=== PATIENT | male | born 1960 | race Caucasian/White ===

== ENCOUNTER 2017-11-27 16:01 | Inpatient (IN) | payer MEDICAID ==
[~2017-11-27] VITALS: Ht 182.9 cm; Wt 64.4 kg
[2017-11-27 07:00] VITALS: BP 112/73
[~2017-11-27 16:01] MED LIST: FLEXERIL PO; FLOMAX0.4 MG PO; IBUPROFEN 800800 M1 PO; MIRALAX17 G1 PO; MIRALAX17 GM PO; MS CONTIN15 MG PO; MS CONTIN30 MG PO; NAPROSYN500 MG PO; NEURONTIN 300300 M1 PO; NEURONTIN300 MG PO; NICOTINE TRANSD21 M1 TRANSDERM; NORCO 5-325 TA1 EACH PO; OMEPRAZOLE 20 M20 M1 PO; ONDANSETRON ODT4 MG PO; OXYCODONE HCL 55 MG PO; OXYCODONE HCL15 MG PO; OXYCONTIN10 M1 PO; PERCOCET 10-321 EACH PO; PERCOCET PO; PROTONIX40 M1 PO; REGLAN 10 MG TA10 MG PO; SENOKOT-S1 TA1 PO; TRAMADOL 50 MG50 MG PO; XANAX 0.25 MG0.25 MG PO; XANAX 0.5 MG0.5 MG PO; ZOFRAN ODT4 MG DISSOLVE; ZOLOFT100 MG PO
[2017-11-27 16:04] VITALS: BP 118/81
[2017-11-27 16:39] LABS: HEMATOCRIT 38.1 % (42.0-52.0); HEMOGLOBIN 13.1 gm/dL (14.0-18.0); MCH 31.5 pg (26.0-34.0); MCHC 34.2 g/dL (28.0-37.0); MCV 92.1 fL (80.0-100.0); NUCLEATED RBCS 0 /100WBC; PLATELET COUNT* 469 thou/uL (150-400); RBC 4.14 mil/uL (4.50-6.00); RDW-CV 17.1 % (10.5-14.5); WBC 8.8 thou/uL (4.0-11.0)
[2017-11-27 16:55] LABS: CALCIUM 9.5 mg/dL (8.5-10.1); CREATININE 1.5 mg/dL (0.6-1.3)
[2017-11-27 16:58] LABS: POTASSIUM 4.4 mmol/L (3.5-5.1)
[2017-11-27 17:05] LABS: ALBUMIN 3.9 g/dL (3.4-5.0); TOTAL BILIRUBIN 0.5 mg/dL (<0.1-1.0); TOTAL PROTEIN 7.6 g/dL (6.4-8.2); TROPONIN-I LEVEL 0.07 ng/mL (<0.06)
[2017-11-27 17:08] LABS: ABSOLUTE LYMPHOCYTES 0.5 thou/uL (0.8-5.3); ABSOLUTE MONOCYTES 0.5 thou/uL (0.0-1.2); ABSOLUTE NEUTROPHILS 7.7 thou/uL (1.6-8.1)
[2017-11-27 17:09] LABS: ANISOCYTOSIS Occasional; PLATELET ESTIMATE ADEQUATE
[2017-11-27 17:58] LABS: INFLUENZA A ANTIGEN None Detected (None Detect); INFLUENZA B ANTIGEN None Detected (None Detect)
[2017-11-27 18:36] VITALS: BP 102/73
--- NOTE | 2017-11-27 19:09 | NUR ---
Pt to floor frpom ER , appears o x 4, denies chest pain, or SOB, does C/O chronic abdominal pain. Given IV pain RX in ER, . Statews nausea relieved. GFiven IV zofran and IV phenergan. PIV L ac. Rec 1 l fluid NS ion ER, along with IV rocephine. orders foer NS @ 100 ml per hour, HAS PIV L ac, has chest port-a-cath that is not accessed. Hx of colon CA has colostomy. C/O generalized weakenss. States has HX of anxiety asking foer gena, states is home RX. NSR on monitor 82
[2017-11-28] VITALS (7 sets, daily range): BP systolic 74–107; BP diastolic 41–75
--- NOTE | 2017-11-28 03:06 | NUR ---
Pt co abdominal pain, rating 8-9/10. Getting some relief with morphine prn, but states he would like to have home regimen of Morphine po and oxycodone resumed as he reports it works well for controlling his pain. C/o intermittent nausea, no emesis. Had lemon-tanana soda and zofran to help alleviate nausea. Colostomy has been emptied 3X up to this point; filling with dr green liquid stool along with flatus. Reports that he had not voided in the past couple of days. He has voided once so far this shift. VSS. Will continue to monitor.
[2017-11-28 04:52] LABS: HEMATOCRIT 34.6 % (42.0-52.0); HEMOGLOBIN 12.1 gm/dL (14.0-18.0); MCHC 34.9 g/dL (28.0-37.0); MCV 91.9 fL (80.0-100.0); MPV 6.3 fl. (7.2-11.1); RBC 3.76 mil/uL (4.50-6.00); RDW-CV 17.3 % (10.5-14.5); WBC 6.4 thou/uL (4.0-11.0)
[2017-11-28 05:12] LABS: ALBUMIN 3.5 g/dL (3.4-5.0); CALCIUM 8.5 mg/dL (8.5-10.1); CREATININE 1.2 mg/dL (0.6-1.3); POTASSIUM 3.6 mmol/L (3.5-5.1); TOTAL BILIRUBIN 0.3 mg/dL (<0.1-1.0); TOTAL PROTEIN 6.3 g/dL (6.4-8.2)
--- NOTE | 2017-11-28 13:47 | EKG ---
[place] [address] ELECTROCARDIOGRAM REPORT Name: PARESHVIGNESH DENVER Room: [address] ADM IN .R.#: [id number] Admission: 11/27/17 Attend Phys: Joey Atkins, Discharge: Date of : 60 Report #: [id number] THIS REPORT FOR: //name// [facility] ED Test Date: 2017-11-27 Test Time: 16:20:21 Pat Name: VIGNESH YODER Department: Room: [facility] [place] Gender: M Designer: ROSA : 1960 Requested By: Brina Petersen Order Number: [id number] MD: Casimiro Gamboa Measurements Intervals [place] Rate: 97 P: 89 KS: 139 QRS: 97 QRSD: 103 T: 80 QT: 377 QTc: 479 Interpretive Statements Sinus rhythm Biatrial enlargement Borderline right axis deviation Nonspecific T abnrm, anterolateral leads Borderline prolonged QT interval Compared to ECG 11/10/2017 16:42:21 rate increased Electronically Signed On 11-28-2017 13:47:12 STITCH BONDING MACHINE DRAWER IN by Casimiro Gamboa [email or web address] <ELECTRONICALLY SIGNED> By: Casimiro Gamboa MD, FACC 11/28/17 1347 1620 1620 Casimiro Gamboa MD, [facility] /EPI
--- NOTE | 2017-11-28 19:09 | NUR ---
VSS, ASSUMED CARE IN THE AM, ASSESSMENT PERFORMED AND CHARTED, FALL PRECAUTIONS IN PLACE AND CALL LIGHT IN REACH, PT BPS ARE SOFT AND DR HAS BEEN CALLED, ORDERS ARE TO START FLUID BOLUS, PT STATES PAIN IN ABDOMINE, HIS GOAL IS TO IMPROVE BP'S AND LOWER PAIN, PT IS UP WITH ONE AND HAS COLOSTOMY IN RUQ, AT THIS TIME PT BPS ARE STILL SOFT AND OT IS STILL IN PAIN, PAIN MEDS AND FLUIDS ARE BEING INFUSED, HOURLY ROUNDS CONPLETED,
[2017-11-29] VITALS (7 sets, daily range): BP systolic 73–106; BP diastolic 37–68
[2017-11-29 01:03] LABS: URINE BILIRUBIN NEGATIVE (Negative); URINE BLOOD NEGATIVE (Negative); URINE CLARITY CLEAR; URINE COLOR YELLOW; URINE GLUCOSE-RANDOM NEGATIVE (Negative); URINE KETONES NEGATIVE (Negative); URINE LEUKOCYTES-REFLEX NEGATIVE (Negative); URINE NITRITE-REFLEX NEGATIVE (Negative); URINE PROTEIN NEGATIVE (Negative); URINE SPECIFIC GRAVITY 1.015 (1.005-1.030); URINE UROBILINOGEN 0.2 E.U./dl (0.2-1.0)
--- NOTE | 2017-11-29 03:31 | NUR ---
Pt continues to have lower BP; 80s/40s-50s. Asymptomatic; and states he is feeling "well-hydrated." Continues to have large amount of liquid stool from colosomy, emptied approx every 2-3 hours. Continues to have abdominal pain, rating 8-9/10. Also c/o soreness and dryness to hands, which he describes as similar to what he experienced with his previous hospital stay. Lotion given to help with dryness. Pt drank some milk, states he is making an effort to get some nourishment. Will continue to monitor.
[2017-11-29 04:42] LABS: HEMATOCRIT 28.3 % (42.0-52.0); MCH 31.9 pg (26.0-34.0); MCHC 34.2 g/dL (28.0-37.0); MCV 93.4 fL (80.0-100.0); MPV 6.9 fl. (7.2-11.1); RBC 3.03 mil/uL (4.50-6.00); RDW-CV 16.8 % (10.5-14.5); WBC 3.9 thou/uL (4.0-11.0)
[2017-11-29 04:43] LABS: ALBUMIN 2.8 g/dL (3.4-5.0); CALCIUM 7.3 mg/dL (8.5-10.1); CREATININE 0.9 mg/dL (0.6-1.3); HEMOGLOBIN 9.7 gm/dL (14.0-18.0); MAGNESIUM 1.8 mg/dL (1.8-2.4); POTASSIUM 3.5 mmol/L (3.5-5.1); TOTAL BILIRUBIN 0.2 mg/dL (<0.1-1.0); TOTAL PROTEIN 5.3 g/dL (6.4-8.2)
--- NOTE | 2017-11-29 08:00 | NUR ---
VSS, ASSUMED CARE THIS AM, ASSESSMENT PERFORMED AND CHARTED, FALL PRECAUTIONS IN PLACE AND CALL LIGHT IN REACH, PT IS A&O4 AND TRACING SR ON THE MONITOR, STATES HAVING ABDOMINAL PAIN, HAS ILEOSTOMY IN RUQ AND IS INPLACE AND IS DRAING GREEN LIQUID, AT THIS TIME PT IS ON RA UP WITH ONE, HIS GOAL IS TO IMPROVE PAIN CONTROL AND IMPROVE APPETITE.
--- NOTE | 2017-11-29 17:55 | NUR ---
VSS, PT IS PROGRESSING TOWARDS GOAL, PT IS A&O4 AND UP WITH STAND BY, GOT CLEANED UP AND WAS UP IN CHAIR, PT STILL STATES PAIN, HE IS TRACING SR ON THE MONITOR AND, NO OTHER STATUS CHANGE AT THIS TIME,
[2017-11-30] VITALS: BP 99/46
--- NOTE | 2017-11-30 01:15 | NUR ---
BEGAN CARE OF PT AT 1930, PT A/OX4, SR ON THE MONITOR, RA, REPORTS PAIN TO THE ABD, PT STATED, "I HAVE A COUPLE TYPES OF PAIN MEDS, THE HYDRO I GET EVERY 4 NOW", PT PAIN TREATED, VOIDING USING URINAL, ILIOSTOY TO THE RQ, PT ADDS WATER TO BAG AND DRAINS HIMSELF, UP HAS NOT BEEN OUT OF BED THUS FAR, MEDS/ASSESSMENT PER CHARTING, VSS WITH BP SOFT, PT STATED HE'S NORMALLY 80'S/50'S AND WE NEED TO USE HIS LEFT ARM, HOURLY ROUNDING IN PLACE, FALL PRECAUTIONS IN PLACE, BED IN LOW LOCKED POSITION WITH ALARM SET, AND CALL LIGHT IN REACH. WILL CONT TO MONITOR.
[2017-11-30 04:00] VITALS: BP 99/49
[2017-11-30 05:02] LABS: HEMATOCRIT 26.5 % (42.0-52.0); HEMOGLOBIN 8.9 gm/dL (14.0-18.0); MCH 31.2 pg (26.0-34.0); MCHC 33.5 g/dL (28.0-37.0); MCV 93.3 fL (80.0-100.0); MPV 6.7 fl. (7.2-11.1); RBC 2.84 mil/uL (4.50-6.00); RDW-CV 16.7 % (10.5-14.5); WBC 3.8 thou/uL (4.0-11.0)
[2017-11-30 05:14] LABS: ALBUMIN 2.6 g/dL (3.4-5.0); CALCIUM 7.3 mg/dL (8.5-10.1); CREATININE 0.8 mg/dL (0.6-1.3); MAGNESIUM 1.7 mg/dL (1.8-2.4); POTASSIUM 3.4 mmol/L (3.5-5.1); TOTAL BILIRUBIN 0.1 mg/dL (<0.1-1.0); TOTAL PROTEIN 5.1 g/dL (6.4-8.2)
[2017-11-30 07:30] VITALS: BP 136/72
--- NOTE | 2017-11-30 10:01 | NUR ---
RECEIVED PT CARE 0700. PT ALERT AND ORIENTED X4. VSS. WIRE TESTER TRACING SR. PT DENIES ANY SOA. O2 SAT 100% ON ROOM AIR. C/O ABDOMINAL PAIN. PRN AND SCHEDULED PAIN MEDICATIONS GIVEN. PT UP IN ROOM WITH BATHROOM PRIVILEDGES. GAIT IS STEADY. AM ASSESSMENT CHARTED. MEDS PER JAN. PATIENT GOT CLEANED UP AND HIS BED LINENS WERE CHANGED PER NURSING STAFF. CALL LIGHT WITHIN REACH. WILL CONTINUE TO MONITOR.
[2017-11-30 11:30] LABS: MAGNESIUM 1.6 mg/dL (1.8-2.4); POTASSIUM 3.5 mmol/L (3.5-5.1)
[2017-11-30 11:47] VITALS: BP 114/61
--- NOTE | 2017-11-30 14:30 | NUR ---
CM ASSESSMENT: Pt known to this CM from previous hospital stay. Pt is A&O. Resides at home with his sister. Independent with ADLs. Recently discharged from the hospital on 11/24. Readmitted with fever and elevated troponin. Pt has rectal CA, has been receiving chemo tx. No hx of SNF. Goal is to return home once medically stable for dc.
[2017-11-30 16:23] VITALS: BP 115/69
--- NOTE | 2017-11-30 18:57 | NUR ---
PT PROGRESSING TOWARDS GOALS. PAIN CONTROLLED WITH ORAL PAIN MEDICATIONS. UP IN ROOM WITH BATHROOM PRIVILEDGES. REFUSES TO HAVE BED ALARM ON. REFUSED TO SIGN IS FALL AGREEMENT. EDUCATION GIVEN AND PATIENT VERBALIZED UNDERSTANDING. IVF INFUSING. PATIENT ABLE TO TOLERATE HIS DIET WITHOUT VOMITING. PRN ZOFRAN GIVEN WITH GOOD RELIEF. CALL LIGHT WITHIN REACH. HOURLY ROUNDING CHARTED. WILL CONTINUE TO MONITOR.
[2017-11-30 20:34] VITALS: BP 114/64
--- NOTE | 2017-11-30 21:02 | NUR ---
BEGAN CARE OF PT AT 1930. NO ACUTE CHANGES DURING THE DAY PER DAY-RN, [place] AT THIS TIME, PAIN TREATED WITH SCHEDULED PAIN MEDICATION, MEDS/ASSESSMENT PER CHARTING, PT REFUSING FALL PRECAUTIONS SUCH BED ALARM, STATED HE WILL CALL IF HE NEEDS SOMETHING, EDUCATED PT ON FALL INFO, PT STATED HE IS NOT DIZZY AND IS FINE, IV FLUIDS RUNNING PER R-CHEST PORT, URINAL AT BED SIDE, PT STATED HE WILL EMPTY HIS OWN ILIOSTOMY BAG, EDUCATED PT ON EMPTYING IT INTO A MEASURING DEVICE PRIOR TO ADDING WATER TO CLEAN THE BAG HE DOES SO WE ARE ABLE TO GET AN ACCURATE OUTPUT, BED IN LOW LOCKED POSITION AND CALL LIGHT IN REACH. WILL CONT TO MONITOR.
[2017-12-01] VITALS: BP 96/49
--- NOTE | 2017-12-01 03:28 | NUR ---
NO ACUTE CHANGES WITH PT OVER NIGHT, HOURLY ROUNDING IN PLACE, PT CONT TO REFUSE FALL PRECAUTIONS SUCH BED ALARM, PAIN MEDS REQUESTED Q4H, PAIN TREATED PER EMAR, WILL CONT TO MONITOR.
[2017-12-01 04:07] VITALS: BP 108/67
[2017-12-01 05:18] LABS: MAGNESIUM 1.4 mg/dL (1.8-2.4); POTASSIUM 3.5 mmol/L (3.5-5.1)
[2017-12-01 09:22] VITALS: BP 114/82
[2017-12-01 13:13] VITALS: BP 133/49
--- NOTE | 2017-12-01 14:15 | NUR ---
ASSUMED CARES OF PT AT 0700. PT IN BED, BED IN LOW AND LOCKED POSITION, FALL PRECAUTIONS IN PLACE. CALL BUTTON AND PERSONAL ITEMS IN PT REACH. PT A&O X4, ANXIOUS, CHRONIC PAIN R/T CANCER TREATMENT. LABORER LABORATORY TRACING SB, VSS ON RA, AFEBRILE, PERRLA, SKIN BREAKDOWN FROM CANCER RADIATION TREATMENT, DR. MARSHALL REQUESTED WOUND CONSULT. MAIN CONCERN IN PAIN CONTROL WITH SCHEDULED AND PRN MEDS. LCTAB. ILIOSTOMY CHANGED, PT HAD SEVERE PANIC ATTACK ABOUT ILIOSTOMY BECOMING LOOSE, REDRESSED WITH NEW EQUIPMENT. PT REFUSES SCD'S. RIGHT PORTACATH PATENT WITH GOOD BLOOD RETURN. PT TOLERATEDS INFUSED FLUIDS/ABT. ERP IN PLACE, REPLACING MG+ AT THIS TIME. OCC. NAUSEA NO VOMITING. PT UP INDEPENDENTLY TO BATHROOM. PULSES RADIAL AND PEDAL WNL. PT PROGRESSING TOWARDS GOAL. WILL CONTINUE TO MONITOR.
[2017-12-01 16:39] VITALS: BP 131/80
--- NOTE | 2017-12-01 20:17 | NUR ---
REPORT TO FRENCH POLISHER FOR CONTINUED CARES. PT REMAINS STABLE. IV ABT TOLERATED IN RIGHT CHEST PORT. PT REFUSES SCD'S THIS SHIFT. APPETITE SEEMS TO BE IMPROVING, MEAL SUPPLEMENTS TAKEN TO INCREASE PROTEIN INTAKE. ILIOSTOMY CHANGED THIS SHIFT. HOURLY ROUNDING COMPLETED. PT PRESENTLY RESTING IN BED WATCHING TV. STATES HE IS READY FOR PAIN MEDS SOON HE CAN HAVE THEM. ALL PT DOCUMENTATION AND EDUCATION COMPLETED. PT PROGRESSING TOWARDS GOAL.
[2017-12-01 20:30] VITALS: BP 128/60
[2017-12-02 00:02] VITALS: BP 142/80
[2017-12-02 04:05] VITALS: BP 163/82
--- NOTE | 2017-12-02 04:26 | NUR ---
PT REMAINED STABLE OVER NIGHT WITH NO ACUTE CHANGES, MAG REPLACED X2 WITH RE-DRAW TO BE COMPLETED THIS AM, PT REC PAIN MEDS PRN Q4H NEEDED, N/WITHOUT V REPORTED AND TREATED, ILEOSTOMY OP NOTED AT 700 WITH LOOSE GREEN LIQUID NOTED TO THE 350 MARKING AND A MORE CLEAR LIQUID NOTED FROM THE 350-700CC, PT CONT TO REFUSE FALL PRECAUTIONS SUCH BED ALARM, USING CALL LIGHT AND ABLE TO REPORT NEEDS, ANXIETY MEDS REQUESTED Q4H, PT STATED HE WAS TOLD HE NEEDS TO STAY A FEW MORE DAYS, HOURLY ROUNDING IN PLACE, BED REMAINS IN LOW LOCKED POSITION WITH CALL LIGHT IN REACH AT ALL TIMES, VSS, WILL CONT TO MONITOR.
[2017-12-02 05:57] LABS: MAGNESIUM 1.5 mg/dL (1.8-2.4); POTASSIUM 3.6 mmol/L (3.5-5.1)
--- NOTE | 2017-12-02 07:15 | NUR ---
ASSUMED CARE OF PT ASSESSED AND DOUMENTED. PT ON CARDIAC MONITER TRACING SR HR 84. PT IS A&O AND STATES HE HAS PAIN THAT IS CONSTANT. PAIN MEDICATION GIVEN PRIOR TO START OF SHIFT. PT IS ON ROOM AIR. HE HAS AN ILLIOSTOMY AND STATES HE WILL TAKE CARE OF THAT. VSS WNL. PT IS AFEBRILE. WM.
[2017-12-02 08:00] VITALS: BP 139/78
--- NOTE | 2017-12-02 12:02 | NUR ---
WOUND CARE NOTE: CONSULT RECEIVED FOR RADIATION SKIN DAMAGE/BREAKDOWN. PATIENT KNOWN TO ME FROM PREVIOUS HOSPITAL STAY WITH SIGNIFICANT FUNGAL RASH TO BL GROIN AND SACRAL/BUTTOCKS/PERINEAL AREA. AREA HAS HEALED VERY WELL. NO OPENINGS NOTED. OSTOMY IS PINK AND PROTRUDING, PATIENT STATES IT IS NORMAL FOR HIM. EDUCATED PATIENT ON CONTINUING TO TURN TO ASSIST WITH PREVENTION, COMMUNICATED UNDERSTANDING. PATIENT SHOWED ME HIS HANDS, STILL PEELING. ENCOURAGED TO WASH HANDS WITH SOAP AND WATER, PAT DRY. WHILE HANDS STILL DAMP, PLACE LOTION THEN PLACE COTTON SOCKS/GLOVES TO ASSIST WITH MOISTURIZATION, COMMUNICATED UNDERSTANDING. RECOMMEND CONTINUE TO TURN Q2 HOURS WILL SIGN OFF AT THIS TIME, PLEASE RECONSULT IF NEEDED
[2017-12-02 16:00] VITALS: BP 132/76
--- NOTE | 2017-12-02 17:53 | NUR ---
PT HAS RESTED IN HIS ROOM AND WATCHED TV. PAIN HAS BEEN ADDRESSED Q4 HOURS. PT HAS HAD NO S OR SX OF ADVERSE REATION TO ABT, PT HAS HAD EMESIS AND NAUSEA TREATED WITH ZOFRAN. EDUCATION GIVEN ON DEMAND. HOURLY ROUNDING COMPLETE. IV MG+ GIVEN AND REDRAW PUT IN.
[2017-12-02 20:00] VITALS: BP 124/64
[2017-12-03] VITALS: BP 117/53
[2017-12-03 04:00] VITALS: BP 129/67
--- NOTE | 2017-12-03 04:03 | NUR ---
ASSUMED CARE OF PT AT 1930, NURSING ASSESSMENT COMPLETED AT START OF SHIFT, PT CONTINUES ON TELE MONITOR TRACING SINUS RHYTHM. HOURLY ROUNDING COMPLETED. PT CONTINUES TO HAVE LIQUID OUPUT FROM OSTOMY THIS SHIFT, PRN PAIN MEDICATION GIVEN X3 THIS SHIFT, PT AFEBRILE THIS SHIFT, CALL LIGHT WITHIN REACH.
[2017-12-03 05:14] LABS: HEMATOCRIT 24.4 % (42.0-52.0); HEMOGLOBIN 8.5 gm/dL (14.0-18.0); MCH 32.3 pg (26.0-34.0); MCHC 34.9 g/dL (28.0-37.0); MCV 92.5 fL (80.0-100.0); MPV 6.5 fl. (7.2-11.1); RBC 2.64 mil/uL (4.50-6.00); RDW-CV 16.7 % (10.5-14.5); WBC 4.1 thou/uL (4.0-11.0)
[2017-12-03 05:28] LABS: CALCIUM 7.5 mg/dL (8.5-10.1); CREATININE 0.7 mg/dL (0.6-1.3); MAGNESIUM 1.9 mg/dL (1.8-2.4); POTASSIUM 3.4 mmol/L (3.5-5.1)
--- NOTE | 2017-12-03 08:00 | NUR ---
AM ASSESSMENT COMPLETE, DEFER TO COMPTUER CHARTING. CYANIDE CASE HARDENER TRACKING SB. UP AD SUZAN, GAIT STEADY. REPORTING HAVING ABD DISCOMFORT, DENIES NAUSEA. SITTING ON SIDE OF BED FOR AM MEAL, WILL MONITOR.
[2017-12-03 11:47] VITALS: BP 124/73
[2017-12-03 15:27] VITALS: BP 122/75
--- NOTE | 2017-12-03 17:13 | NUR ---
AUTOCAD OPERATOR TRACKING WITH NO CHANGE IN RHYTHM. PATIENT GIVEN IMMODIUM FOR LIQUID STOOL, ZOFRAN X 1 FOR COMPLAINTS OF NAUSEA. GIVEN ANXIETY AND PRN PAIN MEDICATION Q 4 HOURS PER PATIENT REQUEST - REPORTING HAVING ABD DISCOMFORT. MIN DIETARY INTAKE, TOLERATING LIQUIDS. CALL LIGHT WITHIN REACH, WILL CONTINUE WITH PLAN OF CARE.
[2017-12-03 20:00] VITALS: BP 117/58
[2017-12-04] VITALS: BP 112/59
[2017-12-04 05:34] LABS: CALCIUM 8.4 mg/dL (8.5-10.1); CREATININE 0.6 mg/dL (0.6-1.3); MAGNESIUM 1.9 mg/dL (1.8-2.4); POTASSIUM 4.3 mmol/L (3.5-5.1)
--- NOTE | 2017-12-04 05:39 | NUR ---
ASSUMED CARE OF PT AT 1930, NURSING ASSESSMENT COMPLETED AT START OF SHIFT, PT CONTINUES TO C/O PAIN, PRN PAIN MEDICATION GIVEN Q4H, PT CONTINUES TO HAVE OVER 1000 ML OUT FROM ILLEOSTOMY. IMMODIUM GIVEN X1 THIS SHIFT. PT BROKE OUT IN SWEATS X2 THIS SHIFT, VSS THIS SHIFT, HOURLY ROUNDING COMPLETED, PT MED SURG STATUS.
--- NOTE | 2017-12-04 07:15 | NUR ---
ASSUMED CARE OF PT ASSESSED AND DOCUMENTED. PT IS A&O AND STATES PAIN IS CONSTANT AROUND HIS STOMA AND ABD. VSS WNL. PT IS AFEBRILE. PT IS ON ROOM AIR.WM.
[2017-12-04 08:00] VITALS: BP 126/64
[2017-12-04 15:58] VITALS: BP 128/76
--- NOTE | 2017-12-04 16:39 | NUR ---
PT IS IN HIS ROOM WATCHING THE [employer] GAME. HIS BROTHER IS AT BEDSIDE. TOOK PT TO THE GIFT SHOP TODAY FOR SNACKS AND DRINKS. PT HAS CONT TO HAVE PAIN IN HIS ABD AND STOMA. PRN MEDICATIONS HAVE BEEN GIVEN Q4 HRS. INCREASED HIS OXY TO 25 MG. PT STATES THIS WAS HELPFUL. PT HAS HAD NO C/O N&V THIS SHIFT. EDUCATION GIVEN ON DEMAND. HOURLY ROUNDING COMPLETE.
[2017-12-04 20:00] VITALS: BP 132/80
[2017-12-05] VITALS: BP 93/60
[2017-12-05 05:01] LABS: HEMATOCRIT 28.1 % (42.0-52.0); HEMOGLOBIN 9.8 gm/dL (14.0-18.0); MCH 32.1 pg (26.0-34.0); MCHC 34.7 g/dL (28.0-37.0); MCV 92.5 fL (80.0-100.0); MPV 6.6 fl. (7.2-11.1); RBC 3.04 mil/uL (4.50-6.00); RDW-CV 17.1 % (10.5-14.5); WBC 4.8 thou/uL (4.0-11.0)
--- NOTE | 2017-12-05 05:06 | NUR ---
ASSUMED CARE OF PT AT 1930, NURSING ASSESSMENT COMPLETED AT START OF SHIFT, PT PT C/O PAIN AND NAUSEA. SCHEDULED PAIN MEDICATION AND PRN PAIN MEDICATION ADMINISTERED THIS SHIFT. SEE EMAR FOR DOCUMENTATION. PT CONTINUES TO HAVE LIQUID STOOL FROM ILLEOSTOMY. SCHEDULED LOPERAMIDE ADMINISTERED. HOURLY ROUNDING COMPLETED, CALL LIGHT WITHIN REACH.
[2017-12-05 05:07] LABS: CALCIUM 8.7 mg/dL (8.5-10.1); CREATININE 0.6 mg/dL (0.6-1.3); MAGNESIUM 1.8 mg/dL (1.8-2.4); POTASSIUM 4.1 mmol/L (3.5-5.1)
--- NOTE | 2017-12-05 07:15 | NUR ---
ASSUMED CARE OF PT ASSESSED AND DOCUMENTED. PT IS A&O. PT STATES PAIN IN STOMA AND ABD IS CONSTANT THROBBING AND SHARP. VSS WNL. PT IS AFEBRILE. PT TREATED FOR PAIN AT 0650 BY PRIOR SHIFT RN WITH OXY AND ZANAX. PT ALSO GIVEN ZOFRAN AT 0650. GAVE PT PEPPERMINT CANDY YESTERDAY AND PT STATES THAT HAS BEEN A GREAT HELP FOR HIS NAUSEA. WM.
--- NOTE | 2017-12-05 08:00 | NUR ---
EDUCATED PT ON CAFFINE AND SODA. PT STATED HE DRANK ICE TEA ALL EVENING. ALSO SPOKE WITH PT RE MILK PRODUCTS. PT TO DRINK WATER TODAY.
--- NOTE | 2017-12-05 09:30 | NUR ---
DR COE WITH [facility] IN TO SEE PT. HE IS STARTING LOMOTIL AND CARAFATE FOR PT. HE IS D/C LOPERIMIDE. SPOKE WITH PT AND EXPLAINED TODAY NO CAFFIENE OR SODA WELL MILK.
[2017-12-05 10:18] LABS: AMYLASE 44 U/L (25-115); LIPASE 77 U/L (73-393)
[2017-12-05 12:41] VITALS: BP 116/77
[2017-12-05 12:44] VITALS: BP 116/77
--- NOTE | 2017-12-05 15:25 | NUR ---
GAVE REPORT TO STEPHY ON . TOOK PT UP TO HIS ROOM ON .
[2017-12-05 15:59] VITALS: BP 137/79
--- NOTE | 2017-12-05 17:44 | NUR ---
PT PROGRESSING TOWARDS GOALS. PRN PAIN MEDICATION ADMINISTERED ON PREVIOUS UNIT. MONITORING ILEOSTOMY OUTPUT. NO OTHER CONCERNS AT THIS TIME. CLWR. WCTM.
[2017-12-05 17:47] VITALS: BP 108/64
[2017-12-06 00:20] VITALS: BP 89/45
[2017-12-06 04:59] LABS: HEMATOCRIT 28.2 % (42.0-52.0); HEMOGLOBIN 9.5 gm/dL (14.0-18.0); MCH 31.5 pg (26.0-34.0); MCHC 33.5 g/dL (28.0-37.0); MPV 6.2 fl. (7.2-11.1); RDW-CV 17.4 % (10.5-14.5); WBC 5.3 thou/uL (4.0-11.0)
[2017-12-06 05:23] LABS: ALBUMIN 2.9 g/dL (3.4-5.0); CALCIUM 8.3 mg/dL (8.5-10.1); CREATININE 0.6 mg/dL (0.6-1.3); MAGNESIUM 1.9 mg/dL (1.8-2.4); POTASSIUM 4.3 mmol/L (3.5-5.1); TOTAL BILIRUBIN 0.1 mg/dL (<0.1-1.0); TOTAL PROTEIN 5.4 g/dL (6.4-8.2)
--- NOTE | 2017-12-06 16:27 | NUR ---
SW followed up with pt. Pt plans to go home with sister and pt is hopeful he will not be a burden to his sister and says his goal is to find his own place eventually. Pt did not express any needs at this time. SW to continue to follow.
[2017-12-06 16:30] VITALS: BP 121/70
--- NOTE | 2017-12-06 19:39 | NUR ---
DAY 10 OF STAY. A/O X 4, CONT WITH ABD PAIN, NAUSEA, MANAGED WITH MEDICATION. SBA WITH TRANSFERS AND AMBULATION. CONT TO HAVE LARGE AMT OF LIQUID STOOL FROM ILEOSTOMY 1225 ML OUT. NS W/ 20K @ 125/HR VIA R CHEST PORT. ERICH MEDS AND CARES WELL, CONT POC.
[2017-12-07 00:05] VITALS: BP 123/82
[2017-12-07 05:14] LABS: HEMATOCRIT 28.1 % (42.0-52.0); HEMOGLOBIN 9.6 gm/dL (14.0-18.0); MCH 31.9 pg (26.0-34.0); MCHC 34.2 g/dL (28.0-37.0); MPV 6.2 fl. (7.2-11.1); RBC 3.02 mil/uL (4.50-6.00); WBC 5.3 thou/uL (4.0-11.0)
[2017-12-07 05:29] LABS: CALCIUM 8.5 mg/dL (8.5-10.1); CREATININE 0.6 mg/dL (0.6-1.3); POTASSIUM 4.1 mmol/L (3.5-5.1)
--- NOTE | 2017-12-07 05:58 | NUR ---
PT STATES HE SLEPT WELL BETWEEN MEDICATIONS OVERNIGHT. RECEIVING MEDS TO THICKEN UP ILEOSTOMY OUTPUT EVERY 2 HOURS, PT STATES HE FEELS LIKE IT IS THICKENING A LITTLE. REMAINS BROWN AND WATERY, 775MLS OVERNIGHT. R PAC IVF INFUSING PER PUMP, LABS DRAWN THIS MORNING. UP AD SUZAN IN ROOM. RECEIVING PO PAIN MEDS EVERY 4 HOURS PRN TO KEEP ABD PAIN ADEQUATELY CONTROLLED. DENIES NAUSEA THIS SHIFT. ABLE TO USE CALL LITE AND MAKE NEEDS KNOWN. HOPEFUL FOR DISCHARGE SOON.
[2017-12-07 07:45] VITALS: BP 135/73
[2017-12-07] MEDS ORDERED: LOPERAMIDE 2 MG2 M1 PO (11:35)
[2017-12-07] MEDS ORDERED: CARAFATE 11 GM/10 M1 PO (11:35)
[2017-12-07] MEDS ORDERED: LOMOTIL TABLET1 EACH PO (11:35)
[2017-12-07] MEDS ORDERED: PROTONIX 20 MG20 M1 PO (11:35)
[2017-12-07] MEDS ORDERED: XIFAXAN550 M1 PO (11:35)
[2017-12-07] MEDS ORDERED: CORTEF 20 MG TA20 M1 PO (11:35)
[2017-12-07 12:05] VITALS: BP 135/73
--- NOTE | 2017-12-07 13:45 | NUR ---
PATIENT A&OX4, ROOM AIR, PORTICATH IN RIGHT CHEST, ACCESS D/C. UP AD SUZAN, STEADY GAIT. C/O PAIN, PARTIAL RELIEF WITH PAIN MEDICATION. NO OTHER CONCERNS AT THIS TIME. PATIENT DISCHARGED TODAY, REVIEWED PAPERWORK VERBALIZES UNDERSTANDING, NO FURTHER QUESTIONS. SENT PRESCRIPTIONS WITH PATIENTS. LEFT UNIT AT 1345 VIA W/C WITH ALL BELONGINGS, NOTHING LEFT BEHIND. APPROPRIATE AND COOPORATIVE WITH CARE.
== END 2017-12-07 13:45 | disposition home or self-care (01) | DRG 682 ==
LOC: M.ERS 16:01 → M.2W 17:45 → M.TBA-ER 17:45 → M.2W 19:01 → M.3W 12-05 15:42
PROVIDERS: Internal Medicine; Internal Medicine Hematology & Oncology; Physician Assistant; Surgery; ADMIT Family Medicine
DX: N17.9 Acute kidney failure, unspecified (principal); E43 Unspecified severe protein-calorie malnutrition; B37.0 Candidal stomatitis; Z68.1 Body mass index [BMI] 19.9 or less, adult; F17.210 Nicotine dependence, cigarettes, uncomplicated; E86.0 Dehydration; I95.9 Hypotension, unspecified; G89.29 Other chronic pain; E87.6 Hypokalemia; E83.42 Hypomagnesemia; K12.30 Oral mucositis (ulcerative), unspecified; K52.9 Noninfective gastroenteritis and colitis, unspecified; K12.1 Other forms of stomatitis; D72.819 Decreased white blood cell count, unspecified; D64.9 Anemia, unspecified; Z88.2 Allergy status to sulfonamides; Z93.2 Ileostomy status; Z88.8 Allergy status to other drugs, medicaments and biological substances; Z85.048 Personal history of other malignant neoplasm of rectum, rectosigmoid junction, and anus; Z92.21 Personal history of antineoplastic chemotherapy; Z92.3 Personal history of irradiation

== ENCOUNTER 2018-01-21 15:33 | Inpatient (IN) | payer MEDICAID ==
[~2018-01-21] VITALS: Ht 182.9 cm; Wt 64.0 kg
[~2018-01-21 15:33] MED LIST changes: +CARAFATE 11 GM/10 M1 PO; +CORTEF 20 MG TA20 M1 PO; +LOMOTIL TABLET1 EACH PO; +LOPERAMIDE 2 MG2 M1 PO; +PROTONIX 20 MG20 M1 PO; +XIFAXAN550 M1 PO
[2018-01-21 15:42] VITALS: BP 162/131
[2018-01-21] MEDS ORDERED: ANTIDEPRESSANT (15:53)
[2018-01-21 16:09] LABS: HEMATOCRIT 43.6 % (42.0-52.0); HEMOGLOBIN 14.7 gm/dL (14.0-18.0); MCH 30.7 pg (26.0-34.0); MCHC 33.8 g/dL (28.0-37.0); MCV 90.8 fL (80.0-100.0); MPV 6.4 fl. (7.2-11.1); NUCLEATED RBCS 0 /100WBC; PLATELET COUNT* 360 thou/uL (150-400); RBC 4.81 mil/uL (4.50-6.00); WBC 9.6 thou/uL (4.0-11.0)
[2018-01-21 16:18] LABS: PROTIME 9.9 Seconds (9.20-11.50)
[2018-01-21 16:19] LABS: ANION GAP 14 mmol/L (7-16); BUN 36 mg/dL (7-18); CALCIUM 9.8 mg/dL (8.5-10.1); CHLORIDE 94 mmol/L (98-107); CO2 24 mmol/L (21-32); CREATININE 2.1 mg/dL (0.6-1.3); GLUCOSE 148 mg/dL (70-99); POTASSIUM 4.1 mmol/L (3.5-5.1); SODIUM 132 mmol/L (136-145)
[2018-01-21 16:33] LABS: ALBUMIN 4.5 g/dL (3.4-5.0); ALKALINE PHOSPHATASE 80 U/L (46-116); NT-PRO BRAIN NAT PEPTIDE 146 pg/mL (<300); SGOT 19 U/L (15-37); SGPT 17 U/L (30-65); TOTAL BILIRUBIN 0.3 mg/dL (<0.1-1.0); TOTAL PROTEIN 8.4 g/dL (6.4-8.2); TROPONIN-I LEVEL <0.06 ng/mL (<0.06)
[2018-01-21 16:38] LABS: URINE BLOOD TRACE (Negative); URINE CLARITY CLEAR; URINE COLOR YELLOW; URINE GLUCOSE-RANDOM NEGATIVE (Negative); URINE KETONES NEGATIVE (Negative); URINE LEUKOCYTES-REFLEX NEGATIVE (Negative); URINE NITRITE-REFLEX NEGATIVE (Negative); URINE PROTEIN 1+ (Negative); URINE SPECIFIC GRAVITY 1.025 (1.005-1.030); URINE UROBILINOGEN 0.2 E.U./dl (0.2-1.0)
[2018-01-21 16:40] LABS: ABSOLUTE LYMPHOCYTES 1.3 thou/uL (0.8-5.3); ABSOLUTE MONOCYTES 0.7 thou/uL (0.0-1.2); ABSOLUTE NEUTROPHILS 7.6 thou/uL (1.6-8.1); ATYPICAL LYMPHS 1 %; PLATELET ESTIMATE ADEQUATE
[2018-01-21 16:42] LABS: ICTOTEST (BILI CONFIRMATORY) Negative (Negative); URINE BILIRUBIN 1+ (Negative)
[2018-01-21 18:29] LABS: INFLUENZA A ANTIGEN None Detected (None Detect); INFLUENZA B ANTIGEN None Detected (None Detect)
[2018-01-21 19:47] VITALS: BP 102/68
[2018-01-21 20:00] VITALS: BP 99/77
[2018-01-21 23:25] VITALS: BP 96/66
--- NOTE | 2018-01-21 23:36 | NUR ---
PATIENT ARRIVED ON UNIT AT APPROX 1999. ALERT AND ORIENTED TIMES FOUR. COMPLAINTS OF PAIN AND REQUESTING HIS "ANXIETY AND PAIN MEDICATIONS." HOSPITAL MEDICINE DIRECTOR AND VITAL SIGNS COMPLETED DOCUMENTED. PATIENT REQUESTED "2MILKS, 2 ROX MIST AND A TURKEY SNADWICH" PATIENT WAS INFORMED THAT STAFF WOULD GET THOSE SOON POSSIBLE ALL STAFF WAS NEEDED IN ANOTHER ROOM AT THAT TIME. PATIENT GIVEN PAIN AND ANXIETY MEDICATION INDICATED BY RN PREVIOUSLY. EDUCATION DONE ON SIDE EFFECTS AND BLOOD PRESSURE/RESPIRATORY MANAGEMENT. PATIENT REQUESTING 30MG OXYCODONE AT THE SAME TIME BEING GIVEN 30MG MSCONTIN AND XANAX. MORE EDUCATION DONE AT THIS TIME. VITALS DONE AT 2300 WHEN PATIENT AGAIN REQUESTED PAIN MEDS AND MORE ANXIETY MEDICATION. PATIENT EDUCATED ON ORDERS FOR ANXIETY MEDICATION BEING TID AND THAT HE HAD RECEIVED THIS MEDICATION APPROX 2H PRIOR. BP WAS 96/66.
--- NOTE | 2018-01-22 01:37 | NUR ---
PATIENT AGAIN REQUESTING PAIN MEDICATION. EDUCATED PATIENT ON BP 85/65 AND THE SIDE EFFECTS OF PAIN MEDICATION. OFFERED TYLENOL, PATIENT STATES "I DON'T WANT NO FING TYLENOL, I WOULD RATHER TAKE THE SHOT AND GET CODED"
[2018-01-22 04:47] LABS: HEMATOCRIT 33.3 % (42.0-52.0); MCH 31.3 pg (26.0-34.0); MCHC 34.6 g/dL (28.0-37.0); MCV 90.2 fL (80.0-100.0); MPV 6.5 fl. (7.2-11.1); RBC 3.69 mil/uL (4.50-6.00); RDW-CV 14.5 % (10.5-14.5); WBC 3.8 thou/uL (4.0-11.0)
[2018-01-22 04:49] LABS: CALCIUM 8.1 mg/dL (8.5-10.1); CREATININE 1.3 mg/dL (0.6-1.3); MAGNESIUM 1.7 mg/dL (1.8-2.4); POTASSIUM 3.6 mmol/L (3.5-5.1)
[2018-01-22 05:07] LABS: HEMOGLOBIN 11.5 gm/dL (14.0-18.0)
--- NOTE | 2018-01-22 06:16 | NUR ---
PATIENT UNABLE TO GET REST THROUGH THE NIGHT. COMPLAINTS OF PAIN 9.5/10. MEDICATION GIVEN. ALERT AND ORIENTED TIMES FOUR. ABLE TO AMBULATE WITH STB TO DUMP HIS COLOSTOMY BAG WHICH HE MANAGES INDEPENDENTLY. ADMISSION ASSESSMENT AND HOURLY ROUNDING DOCUMNETED CHARTED.
[2018-01-22 07:35] VITALS: BP 95/58
--- NOTE | 2018-01-22 11:59 | EKG ---
[place] [address] ELECTROCARDIOGRAM REPORT Name: VIGNESH YODER Room: [address] ADM IN M.R.#: [id number] Admission: 01/21/18 Attend Phys: Ronan Walker MD Discharge: Date of : 60 Report #: [id number] THIS REPORT FOR: //name// [facility] ED Test Date: 2018-01-21 Test Time: 15:51:42 Pat Name: VIGNESH YODER Department: Room: [facility] Gender: M Fraud Manager: Dinora CELESTE : 1960 Requested By: Roberto Olson Order Number: [id number] MD: Antonio Torrez Measurements Intervals [place] Rate: 78 P: 76 VT: 110 QRS: 86 QRSD: 96 T: 76 QT: 373 QTc: 425 Interpretive Statements Sinus rhythm Atrial premature complex Borderline short VT interval Biatrial enlargement Compared to ECG 11/27/2017 16:20:21 Atrial premature complex(es) now present Electronically Signed On 01-22-2018 11:59:53 ORDER CHECKER by Antonio Torrez [email or web address] <ELECTRONICALLY SIGNED> By: Antonio Torrez MD, FAC 01/22/18 1159 1551 1551 Antonio Torrez MD, [facility] /EPI
[2018-01-22 16:00] VITALS: BP 87/51
--- NOTE | 2018-01-22 18:11 | NUR ---
PATIENT A&OX4, FORGETFUL AT TIMES. ROOM AIR, RIGHT PORICATH SALINE LOCK. UP WITH STAND BY ASSIST, FALL PRECAUTIONS IN PLACE, INSTRUCTED TO CALL FOR ASSISTANCE. NURSING TO MONITOR AND COMPELET COLOSTOMY CARE. C/O ABD PAIN, PARTIAL TO MINIMAL RELIEF WITH MEDICATION. NO OTHER CONCERNS AT THIS TIME. APPROPRIATE AND COOPORATIVE WITH CARE.
[2018-01-22 20:00] VITALS: BP 84/42
[2018-01-22 23:31] VITALS: BP 112/63
--- NOTE | 2018-01-23 05:26 | NUR ---
PATIENT SLEPT PART OF THE NIGHT. BP WAS LOW AT BEGINNING OF SHIFT DR. MOREAU WAS NOTIFIED FLUID BOLUS WAS GIVEN AND IV FLUIDS WERE RESTARTED AT 125 ML/HR. BLOOD PRESSURE IMPROVED SEE VITALS. PATIENT WAS GIVEN PAIN MEDS ABOUT EVERY 4 HOURS. WILL CONTINUE TO MONITOR.
[2018-01-23 06:53] LABS: ABSOLUTE EOSINOPHILS 0.2 thou/uL (0.0-0.7); ABSOLUTE LYMPHOCYTES 0.5 thou/uL (0.8-5.3); ABSOLUTE MONOCYTES 0.2 thou/uL (0.0-1.2); ABSOLUTE NEUTROPHILS 2.4 thou/uL (1.6-8.1); BASOPHILS 1.3 %; EOSINOPHILS 5.2 %; HEMATOCRIT 29.6 % (42.0-52.0); LYMPHOCYTES 13.9 %; MCH 30.7 pg (26.0-34.0); MCV 90.3 fL (80.0-100.0); MONOCYTES 7.4 %; MPV 6.4 fl. (7.2-11.1); NUCLEATED RBCS 0 /100WBC; PLATELET COUNT* 209 thou/uL (150-400); POLYS 72.2 %; RBC 3.27 mil/uL (4.50-6.00); RDW-CV 14.4 % (10.5-14.5); WBC 3.3 thou/uL (4.0-11.0)
[2018-01-23 07:18] LABS: CALCIUM 8.1 mg/dL (8.5-10.1); CREATININE 0.8 mg/dL (0.6-1.3); MAGNESIUM 1.5 mg/dL (1.8-2.4); PHOSPHORUS* 4.2 mg/dL (2.5-4.9); POTASSIUM 4.5 mmol/L (3.5-5.1)
[2018-01-23 07:40] VITALS: BP 115/70
--- NOTE | 2018-01-23 09:10 | CON ---
[address] [address] CONSULTATION Name: VIGNESH YODER Room: [address] IN ..#: [id number] Admission: 01/21/18 Attend Phys: Ronan Walker MD Discharge: Date of : 60 Report #: [id number] THIS REPORT FOR: //name// CC: Juan Miguel Deluca DO Ronan Mckay MD Primary Care Physician REQUESTING PHYSICIAN: Ronan Walker MD REASON FOR CONSULT: History of stage 3 rectal cancer. HISTORY OF PRESENT ILLNESS: The patient is a 57-year-old male who I met back in November during admission. He has a history of abdominal pain from about last spring that was mid abdomen in nature, was also then found to have a 5 node positive rectal cancer, I believe, in about June and then had surgery, I believe, in early fall of 2016. He had begun concurrent chemo and radiation therapy back in the fall, but had severe oral mucositis from the chemotherapy. Therapy had to be held. He then was admitted to the hospital about a month and a half ago. He completed his last 6 fractions of radiation there with Dr. Ricardo about 3 weeks ago. The patient states he had been doing fairly well till about maybe 10 days ago, began having what sounds like a pressure belching type sensation, the last 4-5 days been having more liquidy stool. He does mention that some of the people where he resides, family members that is, had had some GI upset, it was like a viral type illness. He denies any fevers or chills. He has also been nauseous, both a crampy, gassy, acidy feeling. He has also had diarrhea in the past. He has tried using Imodium, it is somewhat helpful. He went to the hospital, had tincture of opium, which did help, but his insurance did not cover that. Also, note that he was begun on antidepressant about 5 days ago, after this stool had really started to loosen. He states that his diet has been about the same. Early in the year he had been drinking about 6 Boost a day, here lately 4. He does not think that is causing troubles. He had also not stopped any medications or start any new ones other than the antidepressant. He thinks it is 20 mg, he thought Lexapro or Celexa sounds familiar. He will have a sister bring in a copy of that. He also describes some painful urination where he has pain before and almost like crampy in nature. It is worse during urination, is better afterwards. It sounds like he has tried Pyridium in the past for that. He denies any skin rash, has been a little bit lightheaded and more tired the last several days, a little bit woozy. No blood in his urine or stool. He does have an ostomy. He says at times in the past it has been almost pasty, almost normal nature. Here lately it has been more liquidy. PAST MEDICAL HISTORY: Notable for the rectal cancer stage 3 as mentioned above, [address] [address] CONSULTATION Name: VIGNESH YODER Room: [address] IN .R.#: [id number] Admission: 02/23/18 Attend Phys: Ronan Walker MD Discharge: Date of : 60 Report #: [id number] also history of pancreatitis in the past, also inguinal hernia surgery in the past, back surgery in the past, has the ileostomy. FAMILY HISTORY: Mother had COPD. Father, does not know much about him. Had a brother and a sister, no specific illnesses. He has no children. 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 Stopped drinking alcohol about [address], though he does occasionally smoke marijuana, which he thinks helps some of his issues. MEDICATIONS: At this time in the hospital currently include multivitamins with minerals 1 daily, MS Contin 30 b.i.d., promethazine 12.5 p.o. q.4 hours p.r.n., Zofran 4 mg q.4 hours p.r.n., bisacodyl 10 mg daily p.r.n., magnesium hydroxide daily p.r.n., melatonin 10 mg at bedtime p.r.n., Benadryl 25 mg q.6 hours p.o. p.r.n., Tylenol p.r.n., did receive some IV fluids and is on electrolyte replacements as needed, has loperamide 2 mg q.6 hours p.r.n. written for, has oxycodone 30 mg q.6 hours, says scheduled here, I am not sure that is correct, it may be scheduled but it is p.r.n.; also has Xanax 0.5 mg t.i.d. LABORATORY DATA: Here on this admission show a BUN initially of 36, now down to 29, creatinine had been 2.1 yesterday and is today 1.3, looks like baseline earlier this November and also October it was more around 0.8-0.7. Liver functions this admit normal with AST 19, total bilirubin 0.3. Magnesium is low today 1.7, alkaline phosphatase recently 80, ALT low at 17. Albumin yesterday was 4.5, early November was 2.9. Lactic acid on admission had been slightly elevated at 3.1, today is 0.9. Note that CEA back in July had been 7.8. Hepatitis A, B and C negative. Coags within normal. INR at admission of 1, aPTT mildly elevated at 35. Recent white count on admission was 9.6, hemoglobin yesterday 14.7, today after hydration 11.5, platelets 243. Differential nonacute though does have slight increase of neutrophils. Influenza antigens A and B not detected this admission. C. diff had been negative tested in last November. UA this admit had trace blood, was nitrite negative, leukocytes negative. RADIOLOGY STUDIES: This admit include a CT abdomen and pelvis done yesterday. This shows stable postoperative changes in the right lower quadrant. No bowel obstruction or free air. Chest x-ray done yesterday had no acute cardiopulmonary abnormalities identified. PHYSICAL EXAMINATION: VITAL SIGNS: Height is 6 feet, which is 183 cm, weight is 133 pounds or 60.33 kg. Note that it is down from 142 pounds on 12/07/2017. Blood pressure 96/66, respirations 16, O2 sat 98% on room air, pulse 77, afebrile this admit, current temperature 98.3, late last night [place] 77. [place] [address] CONSULTATION Name: VIGNESH YODER Room: [address] ADM IN [facility]#: [id number] Admission: 01/21/18 Attend Phys: Ronan Walker MD Discharge: Date of : 60 Report #: [id number] MOOD: The patient is alert, pleasant and conversant. NEUROLOGIC: Face is symmetrical. Speech and thought pattern normal. Moving all extremities. LYMPHATICS: No enlarged lymph nodes in the supraclavicular, cervical, axillary, inguinal region. HEENT: Oropharynx clear without injection or erythema or thrush. ABDOMEN: Has an ostomy in the right-side of his abdomen with ostomy bag in place. The patient does have some mild tenderness, has a little bit of gas on percussion, but not distended, mildly chronically tender, but does not appear acute or worse at this point. EXTREMITIES: Without clubbing, cyanosis or edema. GENERAL APPEARANCE: A very thin person. ASSESSMENT AND PLAN: 1. Stage 3 rectal cancer, 5 node positive, not known to be recurrent. He has completed radiation therapy about 3 weeks ago. Per the patient, there is discussion for consideration of additional chemotherapy at a later date. 2. Diarrhea. Note that bowels began to worsen 10 days ago and especially 5 days ago, may be related to getting infected from a family member with a viral illness. I agree with use of Imodium and if needed tincture of opium. 3. Acute kidney injury. Creatinine is better with fluids. Hopefully, oral intake will now improve. 4. Mood. Sister will bring in name of new antidepressant. 5. Low magnesium. Replace. 6. Abdominal pain, crampy in nature. We will cautiously try Bentyl and see if this is beneficial. 8. Nausea with cramping. It is cramping, heartburn and gassy in nature. We will add scheduled Pepcid. 9. Dysuria. We will wait to see whether Bentyl helps. If not, may consider combination of medicine of hyoscyamine and methylene blue. 10. Protein calorie malnutrition. Continue his oral intake. 11. Chronic pain. Continue his MS Contin and oxycodone. Note there have been plans for outpatient pain management consultation as his pain seems out of proportion to his rectal cancer issues and note that the pain preceded and was present to some degree back in January and 03/2017. 12. Anemia, mild. Continue following. <ELECTRONICALLY SIGNED> By: Fredi Geller MD 01/23/18 0910 [id number] Geller MD /nt
--- NOTE | 2018-01-23 16:09 | NUR ---
PATIENT A&OX4, FORGETFUL. ON ROOM AIR, RIGHT CHEST PORTICATH, SALINE LOCK. UP WITH STAND BY ASSIST, STEADY GAIT. C/O ABD PAIN, MINIMAL TO PARTIAL RELIEF WITH MEDICATION. COLOSTOMY OUTPUT LOOSE BUT THICKER THAN PREVIOUS DAY. NO OTHER CONCERNS AT THIS TIME. APPROPRIATE AND COOPORATIVE WITH CARE.
[2018-01-23 16:30] VITALS: BP 115/59
[2018-01-24 00:06] VITALS: BP 110/55
[2018-01-24 04:01] LABS: HEMATOCRIT 29.2 % (42.0-52.0); MCH 30.8 pg (26.0-34.0); MCHC 34.1 g/dL (28.0-37.0); MCV 90.3 fL (80.0-100.0); MPV 6.5 fl. (7.2-11.1); RBC 3.23 mil/uL (4.50-6.00); RDW-CV 14.7 % (10.5-14.5); WBC 4.4 thou/uL (4.0-11.0)
[2018-01-24 04:10] LABS: CALCIUM 8.5 mg/dL (8.5-10.1); CREATININE 0.8 mg/dL (0.6-1.3); POTASSIUM 4.2 mmol/L (3.5-5.1)
--- NOTE | 2018-01-24 06:15 | NUR ---
PATIENT SLEPT PART OF THE NIGHT. PATIENT WAS GIVEN PAIN MEDS ABOUT EVERY 4 HOURS WITH SOME RELIEF. NAUSEA AND ANXIETY MEDS WERE GIVEN NEEDED. WILL CONTINUE TO MONITOR.
[2018-01-24 07:55] VITALS: BP 140/79
[2018-01-24 16:00] VITALS: BP 108/63
--- NOTE | 2018-01-24 17:44 | NUR ---
SW met with pt to complete initial assessment. Pt known to this SW from previous admissions to the hospital. Pt says he plans to dc to his sisters and that he made plans with [facility] to visit more often to try to keep healthy enough to resume chemo txs so pt hope would be to not have to have more hospitalizations. SW to continue to follow to assist with safe dc planning.
--- NOTE | 2018-01-24 19:24 | NUR ---
PATIENT HAS BEEN A/O X 4 THIS SHIFT. MEDICATED EVERY 4 HOURS WITH PRN OXY WITH PARTIAL RELIEF. GIVEN ZOFRAN X 2 WITH RELIEF. RIGHT CHEST PORT A CATH PATENT, FLUSHES WITH EASE AND HAS BRISK BLOOD RETURN. PATIENT UP WITH ASSIST OF 1 AND WALKER TO BATHROOM. COLOSTOMY EMPTIED BY NURSING AND HAS HAD 450 OUT FOR THIS SHIFT, CONTINUES TO BE LIQUID. SUPPLEMENTS ENCOURAGED. HOURLY ROUNDING COMPLETED. CALL LIGHT WITHIN REACH. WILL CONTINUE WITH PLAN OF CARE.
[2018-01-24 23:41] VITALS: BP 116/69
--- NOTE | 2018-01-25 06:20 | NUR ---
PT SLEPT ON AND OFF OVERNIGHT, RECEIVING PO PAIN MED FOR CO ABD PAIN. OSTOMY WITH 375 BROWN LIQUID OUTPUT, PT STATES IT SEEMS TO BE THICKENING UP A BIT. RPAC SL, ZOFRAN GIVEN X1 OVERNIGHT, NO EMESIS. DRANK APPLE JUICE, MILK AND SODA OVERNIGHT. NO LABS THIS MORNING. UP WITH SBA TO BR TO VOID AND EMPTY OSTOMY BAG. XANAX GIVEN PRN. ABLE TO USE CALL LITE AND MAKE NEEDS KNOWN.
[2018-01-25 07:45] VITALS: BP 109/79
[2018-01-25] MEDS ORDERED: LOPERAMIDE 2 MG2 M1 PO ×2 (15:56→16:04)
[2018-01-25] MEDS ORDERED: LEVSIN-SL0.125 MG SUBLING (15:57)
[2018-01-25] MEDS ORDERED: MULTIVITAMINS1 EAC7 PO (15:58)
[2018-01-25] MEDS ORDERED: SIMETHICON CHEW80 M1 PO (15:59)
[2018-01-25 16:00] VITALS: BP 120/76
[2018-01-25] MEDS ORDERED: FAMOTIDINE 20 M20 MG PO (16:00)
[2018-01-25 16:06] VITALS: BP 109/79
--- NOTE | 2018-01-25 16:47 | NUR ---
PATIENT HAS BEEN A/O X 4 THIS SHIFT. MEDICATED WITH PRN OXYCODONE WITH PARTIAL RELIEF. RIGHT PORT A CATH PATENT, HAS BRISK BLOOD RETURN. NAUSEA CONTROLLED WITH ZOFRAN. UP WITH ASSIST. WORKED WITH PHYSICAL THERAPY. COLOSTOMY WITH LIQUID STOOL, PATIENT STATES THINKS THE STOOLS ARE THICKENING UP. CONTINUES ON SCHEDULED IMMODIUM. SUPPLEMENTS GIVEN PER REQUEST. STATES UNABLE TO BE DISCHARGED HOME TONIGHT, STATES WILL BE ABLE TO BE DISHCARGED IN AM. DR GARCIA PAGED AND MADE AWARE. HOURLY ROUNDING COMPLETED. CALL LIGHT WITHIN REACH. WILL CONTINUE WITH PLAN OF CARE.
[2018-01-25 20:00] VITALS: BP 113/77
--- NOTE | 2018-01-25 23:00 | NUR ---
ASSUMED CARE OF PT FROM MEREDITH CHAPARRO. PT WATCHING TV, PO PAIN MED GIVEN. RCHEST PAC SL. ABLE TO USE CALL LITE AND MAKE NEEDS KNOWN. REQUESTING APPLE JUICE AND ICE. DENIES NAUSEA. WILL CONTINUE TO MONITOR. CALL LITE IN EASY REACH.
--- NOTE | 2018-01-26 05:57 | NUR ---
PT SLEPT ON AND OFF OVERNIGHT, RECEIVING PAIN AND NAUSEA MEDS PRN WITH GOOD RESULT. 500 OUTPUT OSTOMY THIS SHIFT. UP TO BR TO VOID. ANTICIPATING DISCHARGE HOME TODAY. R CHEST PAC SL. ABLE TO USE CALL LITE AND MAKE NEEDS KNOWN.
[2018-01-26 07:30] VITALS: BP 129/78
[2018-01-26] MEDS ORDERED: PHENERGAN 25 MG25 M1 PO (11:21)
--- NOTE | 2018-01-26 13:21 | NUR ---
PATIENT DISCHARGED TO HOME AT THIS TIME, TAKEN OUT WITH STAFF VIA WHEELCHAIR. VERBALIZES UNDERSTANDING OF PAPERWORK AND SCRIPT. PAC DC'D ORDERED, PACKED WITH HEPARIN PER PROTOCOL. SURGERY ROUNDED THIS AM, NOTIFIED OF OSTOMY OUTPUT AND OK TO DC. PATIENT TAKEN OUT WITH ALL BELONGINGS.
== END 2018-01-26 13:22 | disposition home or self-care (01) | DRG 374 ==
LOC: M.ERS 15:33 → M.3W 16:39 → M.TBA-ER 16:39 → M.3W 19:46
PROVIDERS: Family Medicine; Surgery; ADMIT Internal Medicine
DX: C20 Malignant neoplasm of rectum (principal); N17.0 Acute kidney failure with tubular necrosis; E43 Unspecified severe protein-calorie malnutrition; Z68.1 Body mass index [BMI] 19.9 or less, adult; E87.1 Hypo-osmolality and hyponatremia; E87.2 Acidosis; F17.210 Nicotine dependence, cigarettes, uncomplicated; R19.7 Diarrhea, unspecified; E86.0 Dehydration; R30.0 Dysuria; G89.29 Other chronic pain; D64.9 Anemia, unspecified; E86.9 Volume depletion, unspecified; F32.9 Major depressive disorder, single episode, unspecified; I95.9 Hypotension, unspecified; F39 Unspecified mood [affective] disorder; E83.42 Hypomagnesemia; N23 Unspecified renal colic; Z93.2 Ileostomy status; Z88.2 Allergy status to sulfonamides; Z88.8 Allergy status to other drugs, medicaments and biological substances; Z91.81 History of falling; Z82.5 Family history of asthma and other chronic lower respiratory diseases

== ENCOUNTER 2018-04-26 10:34 | Inpatient (IN) | payer MEDICAID ==
[~2018-04-26] VITALS: Ht 182.9 cm; Wt 63.0 kg
[~2018-04-26 10:34] MED LIST changes: +ANTIDEPRESSANT; +FAMOTIDINE 20 M20 MG PO; +LEVSIN-SL0.125 MG SUBLING; +MULTIVITAMINS1 EAC7 PO; +PHENERGAN 25 MG25 M1 PO; +SIMETHICON CHEW80 M1 PO
[2018-04-26 10:37] VITALS: BP 93/63
[2018-04-26] MEDS ORDERED: SERTRALINE HCL50 MG PO (10:41)
[2018-04-26] MEDS ORDERED: FLOMAX0.4 MG PO (10:42)
[2018-04-26] MEDS ORDERED: COLESTID1 GM PO (10:43)
[2018-04-26] MEDS ORDERED: DICYCLOMINE HCL10 MG PO (10:44)
[2018-04-26] MEDS ORDERED: RESTORIL30 MG PO (10:44)
[2018-04-26] MEDS ORDERED: XANAX1 MG PO (10:45)
[2018-04-26] MEDS ORDERED: LYRICA 75 MG CA75 MG PO (10:45)
[2018-04-26 10:58] LABS: HEMATOCRIT 36.9 % (42.0-52.0); HEMOGLOBIN 12.5 gm/dL (14.0-18.0); MCH 29.4 pg (26.0-34.0); MCHC 33.9 g/dL (28.0-37.0); MCV 86.5 fL (80.0-100.0); MPV 6.2 fl. (7.2-11.1); NUCLEATED RBCS 0 /100WBC; PLATELET COUNT* 330 thou/uL (150-400); RBC 4.27 mil/uL (4.50-6.00); RDW-CV 14.1 % (10.5-14.5)
[2018-04-26 11:03] LABS: ANION GAP 5 mmol/L (7-16); BUN 22 mg/dL (7-18); CALCIUM 9.1 mg/dL (8.5-10.1); CHLORIDE 84 mmol/L (98-107); CO2 40 mmol/L (21-32); CREATININE 1.8 mg/dL (0.6-1.3); GLUCOSE 110 mg/dL (70-99); POTASSIUM 3.1 mmol/L (3.5-5.1); SODIUM 129 mmol/L (136-145)
[2018-04-26 11:14] LABS: ALBUMIN 3.4 g/dL (3.4-5.0); ALKALINE PHOSPHATASE 63 U/L (46-116); LIPASE 46 U/L (73-393); SGOT 15 U/L (15-37); SGPT 14 U/L (30-65); TOTAL BILIRUBIN 0.5 mg/dL (<0.1-1.0); TOTAL PROTEIN 7.1 g/dL (6.4-8.2); TROPONIN-I LEVEL <0.06 ng/mL (<0.06)
[2018-04-26 11:48] LABS: ABSOLUTE BASOPHILS 0.1 thou/uL (0.0-0.2); ABSOLUTE EOSINOPHILS 0.1 thou/uL (0.0-0.7); ABSOLUTE LYMPHOCYTES 0.2 thou/uL (0.8-5.3); ABSOLUTE MONOCYTES 0.2 thou/uL (0.0-1.2); ABSOLUTE NEUTROPHILS 6.4 thou/uL (1.6-8.1); PLATELET ESTIMATE ADEQUATE
[2018-04-26 14:24] LABS: URINE BILIRUBIN NEGATIVE (Negative); URINE BLOOD NEGATIVE (Negative); URINE CLARITY CLEAR; URINE COLOR YELLOW; URINE GLUCOSE-RANDOM NEGATIVE (Negative); URINE KETONES NEGATIVE (Negative); URINE LEUKOCYTES-REFLEX NEGATIVE (Negative); URINE NITRITE-REFLEX NEGATIVE (Negative); URINE PROTEIN TRACE (Negative); URINE UROBILINOGEN 0.2 E.U./dl (0.2-1.0)
[2018-04-26 14:32] LABS: AMP/METHAMP Negative (Negative); BARBITURATES Negative (Negative); BENZODIAZEPINES Negative (Negative); COCAINE Negative (Negative); METHADONE Negative (Negative); OPIATES Negative (Negative); PCP Negative (Negative); THC POSITIVE (Negative)
[2018-04-26 15:15] VITALS: BP 90/57
--- NOTE | 2018-04-26 15:18 | EKG ---
[place] [address] ELECTROCARDIOGRAM REPORT Name: VIGNESH YODER Room: [address] ADM [place] .R.#: [id number] Admission: 04/26/18 Attend Phys: Malachi Adams Discharge: Date of : 60 Report #: [id number] THIS REPORT FOR: //name// [facility] ED Test Date: 2018-04-26 Test Time: 10:48:30 Pat Name: VIGNESH YODER Department: Room: Gender: Blood Bank Order Control Clerk: Dinora CELESTE : 1960 Requested By: Brina Petersen Order Number: [id number] MD: Casimiro Gamboa Measurements Intervals Coyote Rate: 80 P: 76 OR: 114 QRS: 92 QRSD: 111 T: 77 QT: 412 QTc: 476 Interpretive Statements Sinus rhythm Borderline short OR interval Consider right ventricular hypertrophy Borderline prolonged QT interval Baseline wander in lead(s) I,III Compared to ECG 01/21/2018 15:51:42 no change Electronically Signed On 04-26-2018 15:18:05 CDT by Casimiro Gamboa [email or web address] <ELECTRONICALLY SIGNED> By: Casimiro Gamboa MD, [facility] 04/26/18 1518 1048 1048 Casimiro Gamboa MD, [facility] /EPI
[2018-04-26 15:40] VITALS: BP 101/60
--- NOTE | 2018-04-26 15:50 | NUR ---
PATIENT ADMITTED FROM ER TO ROOM 107. ALERT AND ORIENTED. ABDOMINAL PAIN. ILEOSTOMY IN PLACE. NO ILEOSTOMY OUTPUT SINCE WEDNESDAY. PATIENT REPORTS LEAVING CENTERPOINT WEDNESDAY (PER ER PATIENT LEFT AMA). PATIENT REPORTS BEING NAUSEATED FOR A WEEK AND HAVING A BOWEL OBSTRUCTION. ABDOMEN IS FLAT, BUT TENDER WITH PALPATION. PATIENT REQUESTING ANIT-ANXIETY MEDICATION UPON ARRIVAL. LORAZEPAM IV GIVEN. REFUSED SCD'S. RA SAT 96%. CLEAR LIQUIDS ORDERED, SPRITE AND WATER PROVIDED PER PATIENT REQUEST. ORIENTED TO ROOM. BED ALARM SET DUE TO MEDICATION GIVEN. CALL LIGHT WITHIN REACH. WILL CONTINUE TO MONITOR.
--- NOTE | 2018-04-26 15:53 | NUR ---
PATIENT ALSO HAS RIGHT CHEST PORT WHICH IS NOT ACCESSED AT THIS TIME.
--- NOTE | 2018-04-26 16:40 | NUR ---
PATIENT TOLERATED CLEAR LIQUIDS. MORPHINE FOR PAIN. NO OSTOMY OUTPUT. SLEPT FOR A WHILE AFTER LORAZEPAM. BED ALARM SET. WILL CONTINUE TO MONITOR.
[2018-04-26 17:16] VITALS: BP 106/52
[2018-04-26 20:30] VITALS: BP 99/56
[2018-04-27 00:25] VITALS: BP 86/46
--- NOTE | 2018-04-27 05:25 | NUR ---
PATIENT ALERT AND ORIENTED X 4. VITALS STABLE. RA. VOMITED X 1 AT SHIFT CHANGE. MORPHINE AND ATIVAN GIVEN THROUGH THE NIGHT. ZOFRAN GIVEN X 2. UP INDEPENDENTLY. FLUIDS INFUSING PER ORDER. PATIENT REPORTS EMPTYING HIS ILEOSTOMY BAG THREE TIMES. REPORTS GREEN STOOL. HOURLY ROUNDS. NURSING WILL CONTINUE TO MONITOR.
[2018-04-27 06:33] LABS: ABSOLUTE EOSINOPHILS 0.2 thou/uL (0.0-0.7); ABSOLUTE LYMPHOCYTES 0.5 thou/uL (0.8-5.3); ABSOLUTE MONOCYTES 0.3 thou/uL (0.0-1.2); ABSOLUTE NEUTROPHILS 4.3 thou/uL (1.6-8.1); BASOPHILS 0.4 %; EOSINOPHILS 3.8 %; HEMATOCRIT 33.4 % (42.0-52.0); HEMOGLOBIN 11.4 gm/dL (14.0-18.0); LYMPHOCYTES 9.5 %; MCH 29.5 pg (26.0-34.0); MCV 86.6 fL (80.0-100.0); MONOCYTES 5.5 %; MPV 6.2 fl. (7.2-11.1); NUCLEATED RBCS 0 /100WBC; PLATELET COUNT* 303 thou/uL (150-400); POLYS 80.8 %; RBC 3.85 mil/uL (4.50-6.00); RDW-CV 14.7 % (10.5-14.5); WBC 5.3 thou/uL (4.0-11.0)
[2018-04-27 06:40] LABS: CALCIUM 8.1 mg/dL (8.5-10.1); CREATININE 1.2 mg/dL (0.6-1.3); MAGNESIUM 1.4 mg/dL (1.8-2.4)
[2018-04-27 06:42] LABS: POTASSIUM 2.9 mmol/L (3.5-5.1)
[2018-04-27 07:29] VITALS: BP 78/35
--- NOTE | 2018-04-27 15:30 | NUR ---
PT.IN BED. FEELING A LITTLE BETTER. HE LIVES ALONE. HAS A VERY SUPPORTIVE SISTER. HE STAYED WITH HER AFTER LAST HOSPITALIZATION. HE HAS A CANE. IS NORMMALLY INDPENDNENT. FINISHED CHEMO ABOUT 3 WEEKS AGO. HE DOES NOT FEEL HE WILL HAVE ANY DISCHARGE NEEDS.
[2018-04-27 15:56] VITALS: BP 108/62
--- NOTE | 2018-04-27 16:39 | NUR ---
ASSUMED CARE OF PATIENT AFTER MORNING REPORT. ALERT AND ORIENTED X4. ASSESSMENT COMPETED AND CHARTED. VSS ON ROOM AIR. PATIENT HAS HAD NO COMPLAINTS OF SOA THIS SHIFT. MINIMAL COMPLAINTS OF NAUSEA THIS MORNING, ALLEVIATED WITH ZOFRAN AND NO FURTHER COMPLAINTS. PATIENT HAS CALLED OUT ABOUT PAIN AND ANXIETY MEDICATION SEVERAL TIMES THIS SHIFT BEFORE IT WAS TIME FOR HIS NEXT DOSES. VERY ANXIOUS ABOUT RECIEVING HIS PAIN AND ANTIANXIETY MEDICATIONS MORE OFTEN THAN ORDERED. PATIENTS IV INFILTRATED THIS MORNING AND AN ORDER WAS OBTAINED TO ACCESS HIS PORT FOR INFUSAION OF FLUIDS. POTASSIUM WAS LOW AT 2.9 THIS MORNING, REPLACEMENT PROTOCOL FOLLOWED AND LABS REDRAWN WITH LEVELS NOW AT 3.4. WILL GIVE ONE MORE DOSE PO AND ADD ANOTHER DRAW TO MORNING LABS. HOURLY ROUNDS MAINTAINED, CALL LIGHT WITHIN REACH, DORY WILL CONTINUE TO MONITOR.
[2018-04-27 19:40] VITALS: BP 98/47
--- NOTE | 2018-04-28 05:39 | NUR ---
PATIENT ALERT AND ORIENTED X 4. VITALS STABLE. FLUIDS INFUSING PER ORDER. TAKES PAIN AND ANXIETY MEDICATION APPROXIMATELY EVERY FOUR HOURS. CALLS MULTIPLE TIMES ASKING FOR PAIN MEDICINE BEFORE ITS DUE. CONTINUED ILEOSTOMY OUTPUT. NO VOMITING DURING MY SHIFT. HOURLY ROUNDS. NURSING WILL CONTINUE TO MONITOR.
[2018-04-28 07:54] VITALS: BP 100/67
--- NOTE | 2018-04-28 16:49 | NUR ---
ASSUMED CARE OF PATIENT AFTER MORNIGN REPORT. ALERT AND ORIENTED X4. ASSESSMENT COMPLETED AND CHARTED. VSS ON ROOM AIR. PATIENT HAS HAD NO COMPLAINTS OF SOA THIS SHIFT. PATIENT HAS HAD NAUSEA AND VOMITING TODAY, GIVEN ZOFRAN IV AND RELIEVED SYMPTOMS. PATINTS HAS FREQUENT COMPLAINTS OF PAIN AND ANXIETY AND NEEDS FREQUENT REINFORCEMENT ON WHEN PAIN AND ANXIETY MEDICATION CAN SAFELY BE GIVEN, PATIENT CONTINUES TO CALL OUT TO ASK FOR THESE MEDICATIONS EARLY. HOURLY ROUNDS MAINTAINED, CALL LIGHT WITHIN REACH, NURSIGN WILL CONTINUE TO MONITOR.
[2018-04-28 17:23] VITALS: BP 110/65
[2018-04-28 21:00] VITALS: BP 113/77
--- NOTE | 2018-04-29 05:15 | NUR ---
PATIENT ALERT AND ORIENTED X 4. VITALS STABLE. RA. NO VOMITING DURING MY SHIFT. ZOFRAN GIVEN X 1. CONTINUED OUTPUT FROM ILEOSTOMY. PAIN CONTROLLED WITH PO MEDICATION. FLUIDS INFUSING PER ORDER. HOURLY ROUNDS. BED ALARM IN USE. NURSING WILL CONTINUE TO MONITOR.
[2018-04-29 09:03] VITALS: BP 116/66
[2018-04-29 09:04] LABS: CALCIUM 7.3 mg/dL (8.5-10.1); CREATININE 0.7 mg/dL (0.6-1.3)
--- NOTE | 2018-04-29 10:59 | NUR ---
PT C/O OF ABDOIMNAL PAIN. PAIN MEDICATION GIVEN ORDERED. AFTER BREAKKFAST PT REPORTS "STARTING" TO GET NAUSEATED. PRN ZOFRAN ADMININSTERED PER JAN. NO VOMITING. ACTIVE BOWEL SOUNDS. ILLIOSTOMY GREEN/BROWN STOOOL. PT UP INDEPENDENLY. WILL CONTINUE PLAN OF CARE.
--- NOTE | 2018-04-29 16:15 | NUR ---
PT EMPTYING OWN ILLIOSTOMY. PT EMPTIED ILLIOSTOMY 3 TIMES THIS SHIFT.
--- NOTE | 2018-04-29 16:37 | NUR ---
MET WITH PT. HE IS STILL HAVING TROUBLE WITH NAUSEA AND ANXIETY. HAVING TO USE IV MEDS. HE SAID HE IS USUALLY IN THE HOSPTIAL FOR SEVERAL DAY WHEN HE HAS TO COME IN.
--- NOTE | 2018-04-29 17:27 | NUR ---
THIS AFTERNOON PT REFUSED ZOFRAN MEDICATION. REPORTED FEELING ANXIOUS AND IN PAIN. PRN ATIVAN AND OXY ADMININSTERED PER JAN. PT DRINKING REGULAR COKE AND REPORTS DIET IS CURRENTLY SIMILAR TO HOME.
--- NOTE | 2018-04-29 19:37 | NUR ---
PT C/O OF NAUSEA AND REPORTS VOMITING.
--- NOTE | 2018-04-29 19:38 | NUR ---
PT MORE ALERT THIS EVENING.
[2018-04-29 20:00] VITALS: BP 92/55
[2018-04-30 00:30] VITALS: BP 101/67
[2018-04-30 03:30] VITALS: BP 91/47
--- NOTE | 2018-04-30 07:06 | NUR ---
Alert and oriented x 4. He does get up independently in the room and does his own colostomy care. He does have abdominal pain in the left upper quad and it does feel firm here. Bowel sounds are hyperactive. He's had IV morphine x 3, oral oxy IR 30mg x 2 for abdominal pain rates 8 or 9. IV ativan for anxiety x 3. IV zofran for nausea x 3. He is drowsy, vitals are stable. O2 started at 0100 for roomair sat of 84% he did increase to 92% on 2L he has slept well.
[2018-04-30 08:00] VITALS: BP 92/53
[2018-04-30 16:08] VITALS: BP 95/52
--- NOTE | 2018-04-30 18:07 | NUR ---
PATIENT ALERT AND ORIENTED X 4. DROWSY AT TIMES. VITAL SIGNS STABLE ON 2L O2 NASAL CANULA. BLOOD PRESSURES A LITTLE SOFT AT 95/52. AFEBRILE. PERRLA. RIGHT CHEST PORT-A-CATH PATENT AND SALINE LOCKED. PAIN BEING MANAGED WITH PO AND IV PAIN MEDICATIONS. NAUSEA BEING MANAGED WITH IV MEDICATION. ILEOSTOMY TO RIGHT UPPER QUADRANT WITH GOOD OUTPUT. PASSING FLATUS AND BURPING. HOURLY ROUNDS MAINTAINED THROUGHOUT THE SHIFT. CALL LIGHT WITHIN REACH. NURSING WILL CONTINUE TO MONITOR.
[2018-04-30 20:40] VITALS: BP 103/66
[2018-05-01 00:47] VITALS: BP 102/65
[2018-05-01 04:38] VITALS: BP 105/69
--- NOTE | 2018-05-01 07:39 | NUR ---
PATIENT SLEPT OFF AND ON DURING THE NIGHT. PAIN MEDICATIONS GIVEN ORDERED AND CHARTED. PATIENT HAS HAD SOME NAUSEA DURING THE NIGHT AND ZOFRAN WAS GIVEN WHICH HELPED WITH THE NAUSEA. VSS ON 2L 02 VIA NASAL CANNULA. ILEOSTOMY IN PLACE WITH GREENISH LOOKING OUTPUT IN BAG. PATIENT WAS DUMPING IT HIMSELF AND NOT SURE OF THE AMOUNT OF OUTPUT BUT WAS NOT MUCH ACCORDING TO THE PATIENT. RIGHT CHEST PORT-SL. PATIENT ENCOURAGED TO INCREASE HIS ORAL INTAKE OF FLUIDS. PATIENT NOT DRINKING MUCH. PATIENT HAS POSITIVE BOWEL SOUNDS BUT ABDOMEN IS VERY FIRM ALTHOUGH DID NOT APPEAR DISTENDED. PATIENT INSTRUCTED TO USE CALL LIGHT WHEN NEEDING ASSISTANCE. HOURLY ROUNDS MADE. WILL CONTINUE WITH PLAN OF CARE AND NURSING TO MONITOR.
[2018-05-01 08:00] VITALS: BP 99/55
[2018-05-01 16:03] VITALS: BP 94/62
--- NOTE | 2018-05-01 17:08 | NUR ---
PATIENT ALERT AND ORIENTED X 4. VITAL SIGNS STABLE ON 2L O2 NASAL CANULA. AFEBRILE. PERRLA. UP AD SUZAN IN ROOM. RIGHT CHEST PORT-A-CATH PATENT AND SALINE LOCKED. HAVING MODERATE AMOUNT OF OUTPUT FROM RIGHT UPPER QUADRANT ILEOSTOMY. PO INTAKE HAS INCREASED FROM YESTERDAY. PAIN BEING MANAGED WITH PO AND IV PAIN MEDICATIONS. NAUSEA BEING MANAGED WITH IV MEDICATION. ENCOURGED PATIENT TO COUGH AND DEEP BREATHE AND USE IS. HOURLY ROUNDS MAINTAINED THROUGHOUT THE SHIFT. CALL LIGHT WITHIN REACH. NURSING WILL CONTINUE TO MONITOR.
[2018-05-02] VITALS: BP 148/79
[2018-05-02 06:04] VITALS: BP 95/64
--- NOTE | 2018-05-02 08:15 | NUR ---
PATIENT HAS SLEPT OFF AND ON DURING THE NIGHT BUT HAS BEEN RESTLESS AT TIME. PATIENT GIVEN IV PAIN MEDICATIONS FOR C/O ABDOMINAL PAIN AND CRAMPING. MEDICATIONS CHARTED. NAUSEA MEDICATIONS GIVEN FOR C/O NAUSEA. PATIENT IS UP AD-SUZAN AND STEADY. RIGHT SIDE ILEOSTOMY IN PLACE WITH GREEN LIQUID OUTPUT. PATIENT ENCOURAGED TO DRINK FLUIDS AND TO EAT FREQUENT SMALL SNACKS. PATIENT USING INCENTIVE SPIROMETER DURING SHIFT. VSS ON RA, ALTHOUGH BP SLIGHTY LOW. PATIENT INSTRUCTED TO USE CALL LIGHT WHEN NEEDING ASSISTANCE. HOURLY ROUNDS MADE. WILL CONTINUE WITH PLAN OF CARE AND NURSING TO MONITOR.
--- NOTE | 2018-05-02 12:27 | NUR ---
PT.CALLED AND LEFT A MESSAGE ON PHONE. SPOKE WITH HIM. HE SAID HIS HOME HEAT NURSE CALLED AND SAID HIS MEDICAID WAS SUSPENDED OF APRIL 28. HE DIDN'T KNOW WHY. HE SAID THEY REQUESTED A STATEMENT FROM HIS BANK FOR THE LAST MONTH. HE OBTAINED IT AND TOOK IT TO THE DFS ABOUT 3 WEEKS AGO. MITZY CALLED SONAM LOPEZ AND LEFT A MESSAGE FOR HER TO CALL BACK TO SEE IF SHE COULD HELP.
[2018-05-02 16:00] VITALS: BP 100/72
--- NOTE | 2018-05-02 16:41 | NUR ---
PATIENT REMAINED ALERT AND ORIENTED X'S 4. VITAL SIGNS AND SPO2 STABLE. PORT FLUSHING. GAVE 1 LITER BOLUS OF 1/2 NS. PAIN WAS NEVER CONTROLLED BUT STEADILY STAYED AT AROUND AN 8/10. GAVE PAIN MEDS Q.2 AND ANXIETY MEDS Q.4. PATIENT STILL EXPERIENCING PAIN AND ANXIETY. HAD BOUTS OF NAUSEA, GAVE ZOFRAN, NAUSEA SUBSIDED. ILEOSTOMY INTACT. UP AD SUZAN. COMPLETED HOURLY ROUNDING. CALL LIGHT WITHIN REACH. WILL CONTINUE TO MONITOR.
[2018-05-02 20:00] VITALS: BP 105/66
--- NOTE | 2018-05-03 04:25 | NUR ---
PATIENT ALERT AND ORIENTED X4. UP AD SUZAN IN ROOM. MEDICATED FOR PAIN WITH BOTH ORAL AND IV MEDICATIONS WITH PARTIAL EFFECT REPORTED. 1600 ML LIQUID OUTPUT FROM ILEOSTOMY. ACTIVE BOWEL SOUNDS. VITALS STABLE ON 2L O2 NC. WILL CONTINUE TO MONITOR.
[2018-05-03 08:00] VITALS: BP 104/61
[2018-05-03 15:45] VITALS: BP 109/63
--- NOTE | 2018-05-03 17:19 | NUR ---
PT RESTING IN BED THROUGHOUT SHIFT. PT STATES HE IS UP IN ROOM BUT NOT WITNESSED BY STAFF. PT POOR APPETITE. ENCOURAGED SUPPLEMENTS BETWEEN MEALS. PT PAIN POORLY CONTROLLED. RECEIVING IV MORPHINE IN ADDITION TO PO MEDS.
[2018-05-03 20:00] VITALS: BP 114/80
--- NOTE | 2018-05-04 04:24 | NUR ---
PATIENT REMAINS ALERT AND ORIENTED X4. AMBULATED IN ROOM FREQUENTLY OVERNIGHT. CONTINUES TO C/O ABDOMINAL DISTENTION AND GENERALIZED ABDOMINAL PAIN. MEDICATED FOR PAIN WITH BOTH ORAL AND IV MEDS. ADEQUATE OUTPUT FROM OSTOMY. PATIENT STATES HE VOMITED X2, ZOFRAN GIVEN. POOR APPETITE. VITALS STABLE ON ROOM AIR. WILL CONTINUE TO MONITOR.
[2018-05-04 08:45] VITALS: BP 101/61
[2018-05-04 16:19] VITALS: BP 105/64
--- NOTE | 2018-05-04 18:00 | NUR ---
NO VOMITTING NOTED THIS SHIFT. PATIENT WENT DOWN FOR KUB THIS AM. DR. QUILES NOTIFIED OF RESULTS AND ORDERS FOR NG TUBE PLACEMENT AND NPO. PATIENT DOWN FOR CT ABD/PELVIS AND ANOTHER XRAY. SPOKE WITH DR. KAY FROM RADIOLOGY AND OK FOR SUCTION. NG TO LEFT NARE AND LIS STARTED. PATIENT PUT OUT 1700 FROM THIS SHIFT. ILEOSTOMY PUTTING OUT LARGE AMOUNTS. PRN PAIN MEDICATION GIVEN PER [facility] [employer] [facility] ORDERS. SPOKE WITH DR. QUILES PATIENT CONTINUED TO COMPLAIN OF PAIN AFTER IV MORPHINE GIVEN. OK TO GIVE PO MEDS AND CLAMP NG TUBE FOR AN HOUR AFTER GIVEN. IVF STARTED THIS SHIFT PER SURGERY. LR AT 80MLS/HR.
[2018-05-04 20:00] VITALS: BP 98/63
--- NOTE | 2018-05-04 20:47 | NUR ---
THIS NURSE ASSUMES CARE OF PT AT 1915, PT LYING IN BED NG TO LEFT NARE TO LIS, PT COMPLAINS OF ABD CRAMPING, RATES PAIN 8/10, PT MEDICATED, PT MAKES REQUEST FOR MORE PAIN MEDICATION, PT IS TOLD THIS NURSE WILL REASSESS PAIN BEFORE ADMINISTERING OTHER PAIN MEDS, PT HAS SCHEDULED PAIN MED TO BE GIVEN AT 2100, PT DENIES N/V, NG DRAINING PALE GREEN FLUID, ILLIOSTOMY APPLIANCE IN TACT WITH LIGHT BROWN LIQUID STOOL PRESENT, IV FLUIDS INFUSING, VS OBTAINED, ASSESSMENT COMPLETE, PT RESTING QUIETLY IN BED, CALL LIGHT WITHIN REACH
[2018-05-05 03:50] LABS: HEMATOCRIT 25.9 % (42.0-52.0); HEMOGLOBIN 9.1 gm/dL (14.0-18.0); MCH 29.7 pg (26.0-34.0); MCHC 35.3 g/dL (28.0-37.0); MCV 84.3 fL (80.0-100.0); MPV 6.3 fl. (7.2-11.1); NUCLEATED RBCS 0 /100WBC; PLATELET COUNT* 284 thou/uL (150-400); RBC 3.08 mil/uL (4.50-6.00)
[2018-05-05 04:06] LABS: CALCIUM 7.5 mg/dL (8.5-10.1); CREATININE 0.6 mg/dL (0.6-1.3); PHOSPHORUS* 3.4 mg/dL (2.5-4.9); POTASSIUM 3.1 mmol/L (3.5-5.1)
[2018-05-05 04:27] LABS: MAGNESIUM 0.7 mg/dL (1.8-2.4)
[2018-05-05 05:36] LABS: ABSOLUTE LYMPHOCYTES 0.6 thou/uL (0.8-5.3); ABSOLUTE MONOCYTES 0.2 thou/uL (0.0-1.2); ABSOLUTE NEUTROPHILS 4.3 thou/uL (1.6-8.1); ANISOCYTOSIS 1+; PLATELET ESTIMATE ADEQUATE; POIKILOCYTOSIS 1+
--- NOTE | 2018-05-05 06:47 | NUR ---
PT CONTINUES ALERT, OREINTED X4, PT CONTINUES TO COMPLAIN OF ABD PAIN, DESCRIBES CRAMPING, PT MEDICATED FOR PAIN FREQUENTLY THROUGHOUT THIS SHIFT, DAVID NUNEZ IN TACT, DRAINING PALE GREEN SECRETIONS, LARGE AMOUNT OF OUTPUT THIS SHIFT, DENIES N/V IV FLUIDS INFUSING, BLOOD PRESSURE SOFT, OTHER VS WNL, ILLEOSTOMY BAG NOT EMPTIED THIS SHIFT DUE TO LITTLE OUTPUT, PT RECEIVES POTASSIUM AND MAGNESIUM REPLACEMENTS THIS AM, PT NOW RESTING IN BED AT THIS TIME, CALL LIGHT WITHIN REACH
[2018-05-05 07:40] VITALS: BP 97/55
[2018-05-05 14:05] LABS: MAGNESIUM 2.6 mg/dL (1.8-2.4); POTASSIUM 3.3 mmol/L (3.5-5.1)
[2018-05-05 15:59] VITALS: BP 99/53
--- NOTE | 2018-05-05 17:52 | NUR ---
PATIENT SOMEWHAT PROGRESSING TOWARDS GOALS. REMAINS AOX4. PAIN CHRONIC, RATED FROM 7-10, PATIENT STATES THAT IT IS THAT WAY ALL THE TIME. ON MULTIPLE NARCORTIC MEDICATIONS AND ANTI-ANXIETY MEDICATIONS AND ASKS FOR THEM BEFORE THEY ARE DUE. REMAINS ON 2L NC THROUGHOUT DAY. NG TUBE REMAINS IN PLACE TO LEFT NARE AT 67 CM WITH COPIOUS AMOUNTS OF BILE OUT. REFER TO I&O DOCUMENTATION. SURGERY STATED PATIENT HAVE SOME SIPS OF LIQUIDS, BUT NEEDS TO BE STRICTLY NPO AFTER MIDNIGHT FOR POSSIBLE ILEOSTOMY TAKEDOWN TOMORROW MORNING. DR OSBORN STATED CONSENT CAN BE OBTAINED TOMORROW WHEN THEY KNOW IF SURGERY IS CERTAIN. DENIES FURTHER NEEDS FROM NURSING AT THIS TIME.
[2018-05-05 20:00] VITALS: BP 108/69
--- NOTE | 2018-05-06 04:41 | NUR ---
PATIENT ALERT AND ORIENTED X4. UP WITH STAND BY ASSIST. NG PATENT TO LIS, 2400 ML GREEN OUTPUT. PATIENT NPO, HOWEVER WHEN NURSING ENTERED ROOM PATIENT HAD WATER JUG IN HAND AND QUICKLY SET ASIDE. IVF INFUSING ORDERED. VOIDING ADEQUATELY PER URINAL. MEDICATED FOR PAIN WITH BOTH ORAL AND IV MEDICATIONS. VITALS STABLE ON ROOM AIR. WILL CONTINUE TO MONITOR.
[2018-05-06 06:31] LABS: HEMATOCRIT 30.1 % (42.0-52.0); HEMOGLOBIN 10.4 gm/dL (14.0-18.0); MCH 29.4 pg (26.0-34.0); MCHC 34.6 g/dL (28.0-37.0); MCV 84.8 fL (80.0-100.0); MPV 6.1 fl. (7.2-11.1); RBC 3.55 mil/uL (4.50-6.00); RDW-CV 14.2 % (10.5-14.5); WBC 5.3 thou/uL (4.0-11.0)
--- NOTE | 2018-05-06 06:32 | NUR ---
PATIENT STATES "I HAD NO MEASURABLE OUTPUT FROM ILEOSTOMY OVERNIGHT, ONLY SMALL AMOUNT OF FORMED STOOL"
[2018-05-06 06:55] LABS: CALCIUM 8.4 mg/dL (8.5-10.1); CREATININE 0.8 mg/dL (0.6-1.3); POTASSIUM 3.6 mmol/L (3.5-5.1)
[2018-05-06 08:15] VITALS: BP 101/67
[2018-05-06 11:14] VITALS: BP 101/67; BP 109/55
[2018-05-06 15:42] VITALS: BP 123/73
[2018-05-06 21:15] VITALS: BP 112/68
[2018-05-07 00:11] VITALS: BP 123/69
[2018-05-07 03:52] LABS: ABSOLUTE EOSINOPHILS 0.1 thou/uL (0.0-0.7); ABSOLUTE LYMPHOCYTES 0.3 thou/uL (0.8-5.3); ABSOLUTE MONOCYTES 0.5 thou/uL (0.0-1.2); ABSOLUTE NEUTROPHILS 4.5 thou/uL (1.6-8.1); BASOPHILS 0.4 %; EOSINOPHILS 1.1 %; HEMATOCRIT 27.1 % (42.0-52.0); HEMOGLOBIN 9.4 gm/dL (14.0-18.0); LYMPHOCYTES 4.8 %; MCH 29.3 pg (26.0-34.0); MCHC 34.8 g/dL (28.0-37.0); MCV 84.3 fL (80.0-100.0); MONOCYTES 9.7 %; MPV 6.3 fl. (7.2-11.1); NUCLEATED RBCS 0 /100WBC; PLATELET COUNT* 348 thou/uL (150-400); RBC 3.21 mil/uL (4.50-6.00); RDW-CV 14.3 % (10.5-14.5); WBC 5.4 thou/uL (4.0-11.0)
[2018-05-07 04:00] VITALS: BP 117/71
[2018-05-07 04:12] LABS: CREATININE 0.9 mg/dL (0.6-1.3); POTASSIUM 3.5 mmol/L (3.5-5.1)
--- NOTE | 2018-05-07 05:11 | NUR ---
ALERT AND ORIENTED X4. USING IV AND PO PAIN MEICATION TO HELP WITH PAIN. ABDOMEN DRESSING CLEAN DRY AND INTACT. ABDOMEN REMAINS SLIGHTLY SOLLEN AND SLIGHTLY FIRM WHICH PATIENT STATED IS HIS NORMAL. NAUSEA MEDICATION GIVEN X2 AND HELPFUL. NO VOMITING NOTED. PATIENT EATTING CLEAR LIQUID DIET. N/G CLAMPED AT THIS TIME. REED CATHETER PATENT WITH CLEAR MATHEUS URINE. CALL LIGHT WITHIN REACH.
--- NOTE | 2018-05-07 06:53 | NUR ---
PATIENT C/O FEELING NAUSEATED AND HAVING ALOT OF ABDOMEN PAIN. ABDOMEN SLIGHTLY FIRM. NG RECOMMECTED AND IMMEDIATELY GOT 800ML OF GREEN LIQUID FROM N/G. PATIENT HAS NOT PASSED ANY GAS YET. MEDICAL DR NOTIFIED.
[2018-05-07 08:20] VITALS: BP 101/66
[2018-05-07 16:26] VITALS: BP 94/60
--- NOTE | 2018-05-07 16:56 | NUR ---
PATIENT REMAINED ALERT AND ORIENTED X'S 4. VITAL SIGNS AND SPO2 STABLE. IV PORT CLEAN, TPN INFUSING AT 35. IV CLEAN, SALINE INFUSING. NG CLAMPED FOR PO MEDS. NG HOOKED BACK ONTO SUCTIONING, APPOX. 1999 OUT THOUGHOUT SHIFT. PATIENT DRANK MILK AGAINST DOCTORS ORDERS AND GOT NAUSEOUS. PATIENT ONLY TOOK SMALL SIPS OF WATER AFTER GETTING. REED IN PLACE, CLEAN, INTACT. PATIENT HAS NOT PASSED ANY GAS YET. PAIN NOT WELL CONTROLLED AT ALL. PAIN MEDS GIVEN ABOUT EVERY 2 HOURS. PATIENT RATES PAIN FROM 8-10 EVERY PAIN ASSESSMENT. HE WAS TOLDBY SURGEON TO WALK TODAY BUT HE FEELS TO WEAK TO WALK. COMPLETED HOURLY ROUNDING, CALL LIGHT WITHIN REACH. WILL CONTINUE TO MONITOR.
[2018-05-07 21:10] VITALS: BP 103/65
[2018-05-08 00:12] VITALS: BP 99/51
[2018-05-08 03:55] VITALS: BP 80/45
[2018-05-08 04:26] LABS: HEMATOCRIT 29.1 % (42.0-52.0); HEMOGLOBIN 10.2 gm/dL (14.0-18.0); MCH 29.5 pg (26.0-34.0); MCV 84.3 fL (80.0-100.0); MPV 6.1 fl. (7.2-11.1); NUCLEATED RBCS 0 /100WBC; PLATELET COUNT* 332 thou/uL (150-400); RBC 3.45 mil/uL (4.50-6.00); RDW-CV 14.3 % (10.5-14.5); WBC 6.1 thou/uL (4.0-11.0)
[2018-05-08 04:44] LABS: CALCIUM 8.1 mg/dL (8.5-10.1); CREATININE 0.9 mg/dL (0.6-1.3); MAGNESIUM 1.9 mg/dL (1.8-2.4); PHOSPHORUS* 4.4 mg/dL (2.5-4.9); POTASSIUM 3.3 mmol/L (3.5-5.1)
[2018-05-08 06:17] LABS: ABSOLUTE EOSINOPHILS 0.4 thou/uL (0.0-0.7); ABSOLUTE LYMPHOCYTES 0.5 thou/uL (0.8-5.3); ABSOLUTE MONOCYTES 0.4 thou/uL (0.0-1.2); ABSOLUTE NEUTROPHILS 4.8 thou/uL (1.6-8.1)
[2018-05-08 06:19] LABS: PLATELET ESTIMATE ADEQUATE; POLYCHROMASIA 1+
--- NOTE | 2018-05-08 06:25 | NUR ---
ALERT AND ORIENTED X4. NEEDS 1 ASSIST WHEN GETTING UP. DRESSING ON ABDOMEN CLEAN DRY AND INTACT. DR NOTIFIED OF PATIENT'S ELEVATED TEMPATURE OF 100.2 AND B/P 99/51. NEW ORDERS NOTED. TEMPATURE RECHECKED AFTER TYLENOL GIVEN WAS 98.4. USING PO AND IV PAIN MEDICATION TO HELP WITH ABDOMEN PAIN. NG PATENT WITH LARGE AMOUNT OF GREEN DRAINAGE. TPN INFUSING WITHOUT DIFFICULTY. CALL LIGHT WITHIN REACH.
[2018-05-08 09:12] VITALS: BP 85/52
[2018-05-08 16:25] VITALS: BP 95/69
--- NOTE | 2018-05-08 17:37 | NUR ---
ASSUMED CARE OF PATIENT AFTER MORNRING REPORT. ALERT AND ORIENTED X4. ASSESSMENT COMPLETED AND CHARTED. VSS ON ROOM AIR. FLUIDS AND TPN INFUSING ORDERED. PATIENT COMPLAINS FREQUENTLY OF PAIN AND ANXIETY, CONSISTANTLY ASKING FOR NARCOTIC PAIN AND ANTIANXIETY MEDICATIONS BEFORE THE TIMES HE KNOWS HE CAN HAVE THEM. PATIENT ASKED NUMEROUS TIMES TO HAVE SUCTION TURNED BACK ON TODAY...WHILE STILL CONSUMING FLUIDS. SURGERY SAW PATIENT AND INSTRUCTED THAT HE BE CLAMPED FROM NG SUCTION AND NEEDED TO GET UP AND OUT OF BED. PATIENT ARGUED WITH SURGICAL STAFF THAT HE WOULD NOT GET OUT OF BED WHILE HIS PAIN WAS SO INTOLERABLE. PATIENT HAS BEEN VERY WELL MEDICATED THIS SHIFT, THE PATIENT IS DROWSY AND NEEDING TO BE WOKEN UP AFTER CALLING OUT ASKING FOR MEDS. NG SUCTION CLAMPED OFF AND DISCONNECTED THIS AFTERNOON, PATIENT DID GET UP TO THE CHAIR WITH ENCOURAGEMENT FROM THIS NURSE AND THE CANCER REGISTRAR. PATIENT RESTING IN THE CHAIR AT THIS TIME. HOURLY ROUNDS MAINTAINED, CALL LIGHT IN REACH, NURSING WILL CONTINUE TO MONITOR.
[2018-05-08 21:40] VITALS: BP 107/66
[2018-05-09 02:18] VITALS: BP 94/56
[2018-05-09 03:49] VITALS: BP 78/44
[2018-05-09 05:29] LABS: ABSOLUTE EOSINOPHILS 0.4 thou/uL (0.0-0.7); ABSOLUTE LYMPHOCYTES 0.4 thou/uL (0.8-5.3); ABSOLUTE MONOCYTES 0.5 thou/uL (0.0-1.2); ABSOLUTE NEUTROPHILS 4.9 thou/uL (1.6-8.1); BASOPHILS 0.4 %; EOSINOPHILS 5.7 %; HEMATOCRIT 26.5 % (42.0-52.0); HEMOGLOBIN 9.1 gm/dL (14.0-18.0); LYMPHOCYTES 6.8 %; MCHC 34.5 g/dL (28.0-37.0); MCV 84.2 fL (80.0-100.0); MONOCYTES 7.9 %; MPV 6.2 fl. (7.2-11.1); NUCLEATED RBCS 0 /100WBC; PLATELET COUNT* 349 thou/uL (150-400); POLYS 79.2 %; RBC 3.15 mil/uL (4.50-6.00); RDW-CV 14.5 % (10.5-14.5); WBC 6.2 thou/uL (4.0-11.0)
[2018-05-09 06:03] LABS: CREATININE 0.9 mg/dL (0.6-1.3); MAGNESIUM 1.9 mg/dL (1.8-2.4); PHOSPHORUS* 4.9 mg/dL (2.5-4.9); POTASSIUM 3.3 mmol/L (3.5-5.1)
[2018-05-09 06:50] VITALS: BP 95/57
--- NOTE | 2018-05-09 07:45 | NUR ---
ALERT AND ORIENTED X4. C/O FEELING NAUSEATED. NG RECONNECTED TO SUCTION AND IMMEDIATELY GOT OUT 1000ML OF GREEN DRAINAGE. PATIENT INSTRUCTED TO ONLY DO ICE CHIPS SPARRINGLY. HAD LARGE AMOUNT OF GREEN DRAINAGE FROM MG THROUGHOUT NIGHT. VOIDING WITHOUT DIFFICULTY. DRESSING DRY AND INTACT OVER ABDOMEN INCISION. USING IV AND PO PAIN MEDICATION TO HELP WITH ABD PAIN. DR NOTIFIED OF LOW B/P THIS AM. CALL LIGHT WITHIN REACH.
[2018-05-09 07:50] VITALS: BP 108/73
--- NOTE | 2018-05-09 15:47 | NUR ---
CM SPOKE TO THE PATIENT TO DISCUSS ANY QUESTIONS OR CONCERNS THAT HE MAY HAVE. PATIENT HAS NO QUESTIONS OR CONCERNS AT THIS TIME. CM WILL REMAIN AVAAILABLE TO ASSIST AND FOLLOW NEEDED.
[2018-05-09 16:14] VITALS: BP 84/46
--- NOTE | 2018-05-09 17:58 | NUR ---
PATIENT REMAINED ALERT AND ORIENTED X'S 4. BLOOD PRESSURE HAS BEEN RUNNING SOFT TODAY BUT PATIENT HAS NOT GOTTEN OUT OF BED. VITAL SIGNS AND SPO2 STABLE. WRIST IV, CLEAN, FLUIDS INFUSING. PORT IV CLEAN, TPN INFUSING. DRESSING OVER ABDOMEN CLEAN, DRY, INTACT. PATIENT ACTUALLY STAYED COMPLIANT AND ONLY ATE ICE CHIPS. AROUND 300 OUT OF NG. PATIENT HAD A SMALL AMOUNT OF LIQUID STOOL AND PASSING GAS. PAIN MEDS NEVER CONTROL PAIN, PATIENT ALWAYS RATES PAIN 9-10/10. COMPLETED HOURLY ROUNDING. CALL LIGHT WITHIN REACH. WILL CONTINUE TO MONITOR.
[2018-05-09 21:30] VITALS: BP 100/65
[2018-05-10 03:48] VITALS: BP 92/60
--- NOTE | 2018-05-10 05:21 | NUR ---
PATIENT HAS REMAINED ALERT AND ORIENTED X 4 THROUGHOUT THE SHIFT. SLEEPS LITTLE. UP TO BR WITH SBA. HAVING OOZING LIQUID BM WITH SOME BITS SOFT BM HE IS UNABLE TO CONTROL AT THIS TIME. HAS CHANGED BRIEFS MULTIPLE TIMES THIS SHIFT. NAUSEA THIS SHIFT WITHOUT EMESIS. NGT TO LOW INTERMITTANT SUCTION WITH 1100 ML GREE RETURN OF THIS WRITING. NGT CLAMPED FOR SOME PERIODS OF TIME TO ALLOW FOR ORAL MEDICAITONS. ICE CHIPS ONLY EXCEPT TO SWALLOW MEDS. DRESSING TO ABDOMEN CLEAN AND DRY. VITAL SIGNS STABLE. CONTINUE TO MONITOR.
[2018-05-10 05:51] LABS: ABSOLUTE EOSINOPHILS 0.3 thou/uL (0.0-0.7); ABSOLUTE LYMPHOCYTES 0.3 thou/uL (0.8-5.3); ABSOLUTE MONOCYTES 0.4 thou/uL (0.0-1.2); EOSINOPHILS 4.6 %; HEMATOCRIT 25.4 % (42.0-52.0); HEMOGLOBIN 8.6 gm/dL (14.0-18.0); LYMPHOCYTES 5.1 %; MCV 85.4 fL (80.0-100.0); MONOCYTES 6.7 %; MPV 6.2 fl. (7.2-11.1); NUCLEATED RBCS 0 /100WBC; PLATELET COUNT* 358 thou/uL (150-400); POLYS 83.6 %; RBC 2.97 mil/uL (4.50-6.00); RDW-CV 14.9 % (10.5-14.5)
[2018-05-10 06:04] LABS: CALCIUM 8.4 mg/dL (8.5-10.1); CREATININE 0.8 mg/dL (0.6-1.3); PHOSPHORUS* 3.5 mg/dL (2.5-4.9); POTASSIUM 3.1 mmol/L (3.5-5.1)
[2018-05-10 08:28] VITALS: BP 110/69
[2018-05-10 16:00] VITALS: BP 76/48
--- NOTE | 2018-05-10 18:39 | NUR ---
ASSUMED CARES OF PT AT 0700. PT IN BED, BED IN LOW LOCKED POSITION. CALL BUTTON AND PERSONAL ITEMS IN PT REACH. PT UP INDEPENDENTLY/SBA NEEDED FOR MULTIPLE TUBING. PT A&O X4, HRRR PER AUSCULTATION, LUNGS CLEAR TO DIMINISHED ON AUSCULTATION, VSS ON 1L O2 NC. TPN, LR, K+ INFUSING, TOLERATED. K+ OCC. PAINFUL AT ORDERED RATE, SLOWED DOWN FOR PT COMFORT AT TIMES. LEFT FA IV PATENT TO FLUIDS. ABD TENDER AND FIRM, SURGICAL SITE HEALING. TPN IN NAZIA CATH INFUSING WELL. DIFFICULT TO LOWER PAIN WITH MEDS, GIVEN OFTEN, SEE MAR. NG TUBE INTERMITTANT SUCTION, BROWNISH FLUID IN CANNISTER. ACCU CHECKS Q 6 HRS. ICE CHIPS ONLY NEEDED. REPORT TO BE GIVEN TO PIGGYBACK CLERK FOR CONTINUED CARES. WILL CONTINUE TO MONITOR PT STATUS AND PROGRESS. SMALL SOFT LOOSE BM THIS SHIFT PER PT STATEMENT.
--- NOTE | 2018-05-10 20:49 | NUR ---
PT STATED OFTEN DURING K+ INFUSION OF BURNING, INTOLERABLE PAIN AND 50 ML/HR. NURSE LOWERED RATE TO REDUCE BURNING PER PT STATEMENT. K+ INFUSION TOOK LONGER THAN SCHEDULED R/T PT WANTING INFUSION TURNED OFF OR LOWER RATE. LOWER RATE 20-30 ML/HR TOLERABLE PER PT STATEMENT. PT NG SUCTION ACTIVE THIS SHIFT WITH BROWN/GREEN FLUID PRESENT IN CANNISTER, INTERMITTANT SUCTIONING. CANNISTER CHANGED AT SHIFT CHANGE, SEE DOCUMENTATION FOR I&O'S. SUCTIONING HELD FOR APPROX. 50 MINUTES AFTER PO MEDS TAKEN PER ORDERS OF ABOUT ONE HOUR. PT EXPERIENCED NAUSEA OFF AND ON THIS SHIFT, ZOFRAN ADMINISTERED, SOMEWHAT EFFECTIVE. PAIN DIFFICULT TO CONTROL IN ABD AREA. PAIN RATED FROM 5-10 THIS SHIFT. PT STATED A 5/10 IS TOLERABLE AT THIS TIME. THIS INFORMATION REPORTED TO PIPE MAKER.
[2018-05-10 21:20] VITALS: BP 99/71
[2018-05-11 00:40] VITALS: BP 92/56
[2018-05-11 03:43] VITALS: BP 98/61
--- NOTE | 2018-05-11 05:17 | NUR ---
PT SLEPT ON AND OFF THIS SHIFT. ASSESSMENT DOCUMENTED. MEDS GIVEN PER E-JAN. IV AND PORT PATENT. FLUIDS AND TPN RUNNING. PT REPORTED UNCONTROLLED PAIN, PAIN MEDS GIVEN PER E-JAN. ANXIETY MEDS GIVEN PER -JAN. PT REPORTS HAVING LOOSE STOOLS. PT STATES THAT BEFORE SHIFT CHANGE, PT HAD EPISODE OF EMESIS AND STATES THAT IT LOOKED LIKE IT DID WHEN HE HAD A BOWEL OBSTRUCTION. POTASSIUM REPLACED PER PROTOCOL. WILL CONTINUE WITH PLAN OF CARE.
[2018-05-11 09:00] VITALS: BP 109/62
--- NOTE | 2018-05-11 14:13 | NUR ---
DR. Sofiya LEI CALLED TO NOTIFY OF PT WITH EXCESS FREE AIR IN CT OF CHEST. CT OF CHEST COMPLETED PER DR. TORRES. PT STILL C/O PAIN AND DIFFICULT BREATHING. DR. BROOKS CALLED TO INFORM NURSE OF RESULTS AND TOLD TO CONTACT SURGERY. DONE BY NURSE AT 1411.
--- NOTE | 2018-05-11 15:55 | EKG ---
[place] [address] ELECTROCARDIOGRAM REPORT Name: VIGNESH YODER Room: [address] ADM IN M.R.#: [id number] Admission: 04/26/18 Attend Phys: Malachi Adams Discharge: Date of : 60 Report #: [id number] THIS REPORT FOR: //name// [facility] Test Date: 2018-05-11 Test Time: 14:40:14 Pat Name: VIGNESH YODER Department: Room: [address] Gender: M [employer] Manager: CYNTHIA : 1960 Requested By: Davina Alvarez Order Number: [id number] MD: Casimiro Gamboa Measurements Intervals [place] Rate: 69 P: 37 IL: 122 QRS: 81 QRSD: 121 T: 74 QT: 418 QTc: 448 Interpretive Statements Sinus rhythm Minimal ST elevation, inferior leads Compared to ECG 04/26/2018 10:48:30 no change Electronically Signed On 05-11-2018 15:55:41 CDT by Casimiro Gamboa [email or web address] <ELECTRONICALLY SIGNED> By: Casimiro Gamboa MD, [facility] 05/11/18 1555 1440 1440 Casimiro Gamboa MD, [facility] /EPI
[2018-05-11 16:30] VITALS: BP 104/56
[2018-05-11 20:30] VITALS: BP 115/67
--- NOTE | 2018-05-11 20:35 | NUR ---
ASSUMED CARES OF PT AT 0700. PT IN BED, BED IN LOW LOCKED POSITION. CALL BUTTON AND PERSONAL ITEMS IN PT REACH. PT USES CALL BUTTON APPROPRIATELY. PT UP INDEPENDENTLY TO BATHROOM WITH IV POLE. HRRR PER AUSCULTATION, EKG SHOWED NSR. LCTAB/DIMINSHED LL BILATERALLY. A&O X4, VERY SLEEPY THIS SHIFT. PAIN DIFFICULT TO CONTROL, PAIN CALLS FOR PAIN MEDS OFTEN. OCC. NAUSEA BUT NO VOMITING. SURGERY INCREASED NG TUBE INTO STOMACH FURTHER. SURGERY ALLOWING ICE CHIPS AND SMALL SIPS OF WATER TO TAKE MEDS. STOP NG SUCTION FOR 30-60 MINUTES AFTER MEDS TO BE ABSORBED. SURGERY ALLOWING SMALL SIPS OF MILK. NG TUBE ON INTERMITTANT SUCTION AFTER MED BREAK. IV LOST AT CT SCAN, NEW IV IN LEFT REAR FA 20 GAUGE PATENT AND RECEIVING LR AT 80 ML/HR, K+ REPLACING AT 20-30 ML/HR PER PT TOLERANCE TO PAIN/BURNING AT IV SITE. TPN INFUSING 55 ML/HR AT RIGHT CHEST PORTACATH. PAIN MEDS AND ANXIETY MEDS NEEDED OFTEN. ABD TENDER/FIRM/PAINFUL TO PALPATION. VSS ON RA, AFEBRILE. HOURLY ROUNDING COMPLETED. REPORT TO ENTERPRISE MOBILITY ARCHITECT FOR CONTINUED CARES. PT REFUSING PT AND OT THIS SHIFT. Q 6 ACCU CHECKS COMPLETED. NG TUBE FLUSHED WITH STERIL WATER TO BREAK CLOGGED TUBE WITH SURGERY AT BEDSIDE TO OBSERVE.
[2018-05-12 00:37] VITALS: BP 116/67
[2018-05-12 04:46] VITALS: BP 146/92
[2018-05-12 04:54] LABS: HEMATOCRIT 29.8 % (42.0-52.0); HEMOGLOBIN 9.8 gm/dL (14.0-18.0); MCH 27.9 pg (26.0-34.0); MCHC 32.8 g/dL (28.0-37.0); MCV 85.1 fL (80.0-100.0); MPV 6.3 fl. (7.2-11.1); NUCLEATED RBCS 0 /100WBC; RBC 3.51 mil/uL (4.50-6.00); WBC 19.1 thou/uL (4.0-11.0)
[2018-05-12 05:00] LABS: PLATELET COUNT* 466 thou/uL (150-400)
[2018-05-12 05:03] LABS: CALCIUM 8.3 mg/dL (8.5-10.1); CREATININE 0.8 mg/dL (0.6-1.3); MAGNESIUM 1.7 mg/dL (1.8-2.4); POTASSIUM 3.6 mmol/L (3.5-5.1)
[2018-05-12 05:48] LABS: ABSOLUTE MONOCYTES 0.2 thou/uL (0.0-1.2)
[2018-05-12 05:49] LABS: ANISOCYTOSIS 1+; PLATELET ESTIMATE INCREASED; POIKILOCYTOSIS 1+; TOXIC GRANULATION Occasional
--- NOTE | 2018-05-12 06:18 | NUR ---
PATIENT REMAINS ALERT AND ORIENTED X4 THROUGHOUT SHIFT. VITAL SIGNS STABLE ON ROOM AIR AT BEGINNING OF SHIFT THEN BECOMING SLIGHTLY ELEVATED EARLY THIS AM. PATIENT STATUS SEEMS TO BE DECLINING. HOUSE SUPORVISOR NOTIFIED. PHYSICIAN CONTACTED AND ORDERS RECIEVED. TRANSFERS WITH ASSIST TO THE RESTROOM. REPOSITIONING SELF IN BED. PAIN AND NAUSEA MANAGED WITH IV MEDICATION PER ORDERS. NG PATENT AND ON INTERMITENT SUCTION WITH DARK GREEN OUTPUT. MEDICATIONS GIVEN PER ORDERS. HOURLY ROUNDING COMPLETE. FALL PRECAUTIONS IN PLACE. CALL LIGHT WITHIN REACH. NURSING WILL CONTINUE TO MONITOR.
[2018-05-12 08:00] VITALS: BP 129/76
[2018-05-12 16:20] VITALS: BP 115/68
--- NOTE | 2018-05-12 16:36 | NUR ---
PT NOT PROGRESSING TOWARDS GOALS. DIFFICULT TO MANAGE PAIN D/T ORAL MEDS HELD FOR COPIOUS OUTPUT FROM NG. STOOL SAMPLE SENT TO CHECK FOR C-DIFF. ISOLATION PRECAUTIONS MAINTAINED. VSS. MAG REPLACED THIS SHIFT. PT HAD MULTIPLE CT SCANS, REFER TO RESULTS. NO OTHER CONCERNS AT THIS TIME. CLWR. WCTM.
[2018-05-12 20:40] VITALS: BP 118/79
[2018-05-12 23:56] VITALS: BP 128/77
[2018-05-13 03:44] VITALS: BP 95/60
[2018-05-13 04:39] LABS: ABSOLUTE BASOPHILS 0.1 thou/uL (0.0-0.2); ABSOLUTE LYMPHOCYTES 0.4 thou/uL (0.8-5.3); ABSOLUTE MONOCYTES 0.5 thou/uL (0.0-1.2); ABSOLUTE NEUTROPHILS 13.6 thou/uL (1.6-8.1); BASOPHILS 0.4 %; EOSINOPHILS 0.3 %; HEMATOCRIT 30.1 % (42.0-52.0); HEMOGLOBIN 9.9 gm/dL (14.0-18.0); LYMPHOCYTES 2.6 %; MCH 28.1 pg (26.0-34.0); MCV 85.3 fL (80.0-100.0); MONOCYTES 3.4 %; MPV 6.5 fl. (7.2-11.1); NUCLEATED RBCS 0 /100WBC; PLATELET COUNT* 447 thou/uL (150-400); POLYS 93.3 %; RBC 3.53 mil/uL (4.50-6.00); RDW-CV 15.5 % (10.5-14.5); WBC 14.6 thou/uL (4.0-11.0)
[2018-05-13 04:40] LABS: CALCIUM 8.1 mg/dL (8.5-10.1); CREATININE 0.8 mg/dL (0.6-1.3); MAGNESIUM 2.6 mg/dL (1.8-2.4); PHOSPHORUS* 3.5 mg/dL (2.5-4.9)
[2018-05-13 04:47] LABS: POTASSIUM 2.4 mmol/L (3.5-5.1)
--- NOTE | 2018-05-13 07:52 | NUR ---
Oriented x 4 but drowsy. He's been in bed and he's been incontinent of bowel and bladder. He's had several loose stools, which do have odor. This am it was observed that CDiff specimen came back positive. Hehas been very withdrawn this shift and slept. His vitals are stable. he did have oral meds and NG was clamped for 1 hour. He's had a large amount of output from NG. He has oral intake of around 500 mls.
--- NOTE | 2018-05-13 08:56 | NUR ---
COMPLETED PATIENT REASSESSMENT. VITAL SIGNS TAKEN. 2ND K+ BAG HUNG. MORNING MEDS GIVEN. TRANSFERED PATIENT TO [facility] DUE TO +C-DIFF. WILL CONTINUE TO MONITOR.
--- NOTE | 2018-05-13 13:36 | CON ---
[address] [address] CONSULTATION Name: PARESHVIGNESH GOFF Room: [address] IN M.R.#: [id number] Admission: 04/26/18 Attend Phys: Malachi Adams Discharge: Date of : 60 Report #: [id number] THIS REPORT FOR: //name// CC: Davina Rogers DATE OF SERVICE: 05/13/2018 INFECTIOUS DISEASE CONSULTATION ATTENDING PHYSICIAN: Gerard Gaytan M.D. REASON FOR EVALUATION: C. diff colitis. HISTORY OF PRESENT ILLNESS: Chart reviewed, patient examined. This is a 58-year-old whom I am familiar with, who has had extensive medical history given his age. He has got rectal carcinoma, undergoing chemotherapy and radiation, felt to have complications related to the radiation in his pelvis. I saw him back in October, he had undergone a low anterior resection with renal anastomosis and diverting loop ileostomy, had presented with complaints of nausea, vomiting, decreased ileostomy output, and was quite encephalopathic as well. He was ultimately felt to have some sort of a obstructive process or at least ileus. As part of this hospitalization, he did undergo loop ileostomy takedown with small bowel resection and parastomal hernia repair on 05/06/2018. Postop course is now remarkable for onset of severe diarrhea, was confirmed to have C. diff positive stools. He describes severe cramping type abdominal pain at this point. As noted, there are low-grade temperature elevations, had been started on Zosyn. ALLERGIES: SULFA AND FENTANYL. CURRENT MEDICATIONS: Include oral vancomycin, Zosyn, morphine sulfate, oxycodone, enoxaparin, sertraline, pregabalin, dicyclomine, alprazolam, colestipol, and tamsulosin. PAST MEDICAL HISTORY: As noted above, history of pancreatitis, intractable abdominal pain. SOCIAL HISTORY: Smokes 2 cigarettes a day. No ethanol. FAMILY HISTORY: Noncontributory. REVIEW OF SYSTEMS: As above. Does admit to some breathing difficulties. [place] [address] CONSULTATION Name: VIGNESH YODER Room: [address] IN [facility]#: [id number] Admission: 04/26/18 Attend Phys: Malachi Adams Discharge: Date of : 60 Report #: [id number] PHYSICAL EXAMINATION: GENERAL: He is chronically ill appearing, undernourished, [id number] distress. VITAL SIGNS: Temperature 97.7, pulse 66, respirations 14, blood pressure is 95/60. SKIN: Warm, dry, no rashes. HEENT: NG tube in place. NECK: Supple. LUNGS: Few scattered coarse breath sounds. HEART: Regular. I do not appreciate a murmur. ABDOMEN: Scaphoid. I do not think there is any true peritoneal signs. He is tender. There is some guarding. GENITOURINARY: Deferred. RECTAL: Deferred. LABORATORY DATA: C. diff toxin gene, [place] was positive. CBC: White count of 14.6, H and H 9.9 and 30.1, platelets of 447. Electrolytes: Sodium 141, potassium 2.4, chloride 98, bicarbonate is 36, anion gap of 7, BUN and creatinine 20 and 0.8, glucose of 163. CT abdomen and pelvis, diffuse thickening involving the cecum and descending colon region, has inflammation, question of pseudomembranous colitis. CT of the chest, there is a large amount of pneumoperitoneum. ASSESSMENT: Clostridium difficile colitis, likely pseudomembranous colitis. Given the severity, we can treat with a combination therapy. We will just continue the Zosyn for now. Add metronidazole, increase to high-dose vancomycin. We may need to think about other options as well. He does not have much in the way of colon left, I do not believe we will discuss with Surgery. Continue symptomatic treatment. Monitor expectantly for infectious complications related to this prolonged hospitalization. <ELECTRONICALLY SIGNED> By: Jeremías Quinteros MD 05/13/18 1336 0918 1210Jojovi Quinteros MD /nt
--- NOTE | 2018-05-13 17:27 | NUR ---
TRANSFERRED TO 311 THIS MORNING, DISCOMFORT MANAGED WELL WITH CURRENT PAIN REGIMEN, POTASSIUM REPLACED THROUGHOUT THIS SHIFT. NG TO R NARE @ LIS UNLESS ADMIN MEDS, THEN OFF FOR ONE HOUR PRE/POST. FREQUENT LOOSE BM THIS SHIFT, CONT TO BE UNDER CONTACT ISO FOR C.DIFF+ RESULT. NS @ 80 VIA 20G LFA. TPN @ 55 VIA R CHEST PORT. COMPLIANT WITH MEDS AND CARES, CALL LIGHT IN REACH, CONT MONITOR.
[2018-05-13 17:29] VITALS: BP 106/52
[2018-05-14 06:23] VITALS: BP 110/58
[2018-05-14 06:40] LABS: ABSOLUTE EOSINOPHILS 0.7 thou/uL (0.0-0.7); ABSOLUTE LYMPHOCYTES 0.5 thou/uL (0.8-5.3); ABSOLUTE MONOCYTES 0.5 thou/uL (0.0-1.2); ABSOLUTE NEUTROPHILS 8.3 thou/uL (1.6-8.1); BASOPHILS 0.3 %; EOSINOPHILS 6.7 %; HEMATOCRIT 25.5 % (42.0-52.0); HEMOGLOBIN 8.6 gm/dL (14.0-18.0); LYMPHOCYTES 4.9 %; MCH 28.9 pg (26.0-34.0); MCHC 33.8 g/dL (28.0-37.0); MCV 85.4 fL (80.0-100.0); MONOCYTES 4.8 %; MPV 6.3 fl. (7.2-11.1); NUCLEATED RBCS 0 /100WBC; PLATELET COUNT* 428 thou/uL (150-400); POLYS 83.3 %; RBC 2.98 mil/uL (4.50-6.00); RDW-CV 15.2 % (10.5-14.5); WBC 9.9 thou/uL (4.0-11.0)
--- NOTE | 2018-05-14 06:42 | NUR ---
PATIENT SLEPT PART OF THE NIGHT. TPN AND IV FLUIDS CONTINUE TO INFUSE ORDERED. NG REMAINS TO LIS EXCEPT WHEN CLAMPED AFTER GIVING ORAL MEDS. PATIENT WAS GIVEN PAIN MEDS ABOUT EVERY THREE TO FOUR HOURS. PATIENT CONTINUES TO HAVE SEVERAL LOOSE STOOLS BUT IS STARTING TO BE ABLE TO MAKE IT TO THE BEDSIDE COMMODE NOT GOING IN THE BED. WILL CONTINUE TO MONITOR.
[2018-05-14 06:55] LABS: MAGNESIUM 2.2 mg/dL (1.8-2.4); PHOSPHORUS* 2.8 mg/dL (2.5-4.9)
[2018-05-14 07:02] LABS: ALBUMIN 1.8 g/dL (3.4-5.0); CALCIUM 7.8 mg/dL (8.5-10.1); CREATININE 0.6 mg/dL (0.6-1.3); POTASSIUM 3.5 mmol/L (3.5-5.1); TOTAL BILIRUBIN 0.2 mg/dL (<0.1-1.0); TOTAL PROTEIN 4.9 g/dL (6.4-8.2)
[2018-05-14 07:35] VITALS: BP 109/67
[2018-05-14 16:00] VITALS: BP 103/55
--- NOTE | 2018-05-14 17:03 | NUR ---
PATIENT A&OX4, ROOM AIR, IV LEFT FOREARM FLIUDS INFUSSING. RIGHT CHEST PORT WITH TPN. UP STAND BY, STEADY GAIT. WEAKNESS NOTED. UP SEVERAL TIMES TO BSC FOR DIARRHEA, C/O ABD PAIN, PARTIAL RELIEF WITH MEDICATION. NG TUBE TO LEFT NARE AT 67MM, CLAMPED AT 0730. STARTED CLR LIQUID DIET, TOLERATING. UNABLE TO EAT/DRINK VERY MUCH BEFORE FEELING FULL. NO OTHER CONCERNS AT THIS TIME. APPROPRAITE AND COOPORATIVE WITH CARE.
--- NOTE | 2018-05-14 21:27 | OP ---
[facility] [address] [place] [address] OPERATIVE REPORT Name: VIGNESH YODER Room: [address] IN M.R.#: [id number] Admission: 04/26/18 Attend Phys: Malachi Adams Discharge: Date of : 60 Report #: [id number] THIS REPORT FOR: //name// CC: Davina Rogers DATE OF SERVICE: 05/06/2018 DATE OF SURGERY: 05/06/2018. PREOPERATIVE DIAGNOSIS: Rectal cancer with undesired ileostomy. POSTOPERATIVE DIAGNOSIS: Rectal cancer with undesired ileostomy. PROCEDURES: 1. Loop ileostomy takedown with small-bowel resection and parastomal hernia repair. 2. Laparoscopic lysis of adhesions. 3. Anoscopy with anal dilation. SURGEON: Davina Alvarez M.D. BI TECHNICAL LEAD: Viral Khoury DO. ESTIMATED BLOOD LOSS: 5 mL. COMPLICATIONS: None. FINDINGS: Single adhesion coming down from prior drain site. Extent of small bowel appeared dilated, without clear obstructive point. ANESTHESIA: GET. DESCRIPTION OF PROCEDURE: Fully informed consent obtained preoperatively with full discussion of all risks, benefits and alternatives, with questions answered. The patient understood risk of bleeding, infection, reoperation, injury to surrounding structures, anastomotic leak, persistent or recurrent pain following the procedure, need for additional temporary or permanent stoma and catastrophic complications up to including cardiopulmonary failure and . The patient understood and wished to proceed. He was taken to the operating room. We prepped and draped in standard sterile fashion, began a timeout with all in agreement. We began with the patient up in lithotomy, inspected internally. Coloanal anastomosis noted to be patent. I was able to pass a pinky finger and then fourth finger up to several centimeters [address] [address] OPERATIVE REPORT Name: PARESHVIGNESHTRINI GOFF Room: [address] IN [facility].#: [id number] Admission: 04/26/18 Attend Phys: Malachi Adams Discharge: Date of : 60 Report #: [id number] of dilation to dilate up prior stricture from anastomosis. I inspected with anoscope. This appeared to be patent and without injury. Next, we prepped and draped around the ileostomy site. Began by scoring circumferentially around the ileostomy, took down surrounding attachments. Hernia sac noted and this was away. We came down to the fascia and we were able to separate the ileostomy from the fascia. Preoperatively, a stitch had been placed in the proximal end of the stoma to prevent drainage. Next, we brought the bowel up and took down distal mesentery around the stoma in order to use. Bowel was brought together in [id number] antiperistaltic fashion. Wounds were protected, opened enterotomies on the specimen side and a 60 blue ALPESH stapler fired internally to create a common channel. Inspected internally and it appeared to be healthy and patent. Allis was used to bring together the common channel. Then 90 TA stapler fired to close the common lumen. This was opened. [place] appeared to fire completely. Next, 3-0 Vicryl used to run under the staple line to prevent any ongoing bleeding. Next, I checked the patency. I milked contents from proximally past this with good distention at the anastomosis. There was no leak. I gave 3 mL ICG green. I watched it go from corral to bright green in all aspects of the anastomosis. Additional 3-0 silks used per Imelda's over the staple line. It was replaced back into the abdomen. Next, I placed the Gel port and two additional laparoscopic ports. I surveyed the abdomen. Extent of small bowel was noted to be dilated, without any clear transition point. Multiple small bowel loops were radiated into the pelvis. There was a single adhesion coming down the left lower quadrant from the drain site, where I could see the possibility for small bowel to twist around. I did lysis of this adhesion. I next placed the patient with the right side down. Anastomosis was in the right lower quadrant. I irrigated above. It was submerged completely. I compressed proximal bowel. There was no evidence of any bubbling, confirming a negative leak. I suctioned out fluid. The ascites fluid consistent with bowel dilation was suctioned out. I saw no evidence of any injuries or metastatic recurrence. Next, I used 0 Vicryl on the perineum to close. Hernia sac was dissected free and sent to pathology. The fascia was brought together completely with one [address]-2 with good approximation of the fascia. I closed the skin in pursestring fashion with 3-0 Vicryl. Sterile dressing applied. Sponge, needle [address] [address] OPERATIVE REPORT Name: VIGNESH YODER Room: M.311-P ADM IN M.R.#: [id number] Admission: 04/26/18 Attend Phys: Malachi Adams Discharge: Date of : 60 Report #: [id number] and instrument counts correct at the end of the case. The patient tolerated well. <ELECTRONICALLY SIGNED> By: Davina Alvarez MD 05/14/18 2127 1334 1434Dbrian Alvarez MD /nt
[2018-05-14 23:04] VITALS: BP 99/72
--- NOTE | 2018-05-15 05:10 | NUR ---
BEGINNING OF THE SHIFT PATIENT STATED HE DID NOT FEEL WELL AND WANTED THE NG TUBE HOOKED BACK UP TO SUCTION. NG HAS BEEN HOOKED UP TO SUCTION MOST OF THE NIGHT WHEN NOT CLAMPED AFTER GIVING ORAL MEDS ABOUT 1400 ML OF GREEN/BROWN LIQUID WAS DRAINED. PATIENT WAS GIVEN PAIN MEDS ABOUT EVERY THREE HOURS. IV FLUIDS AND TPN CONTINUE TO INFUSE ORDERED. PATIENT CONTINUES TO HAVE SEVERAL STOOLS. WILL CONTINUE TO MONITOR.
[2018-05-15 06:08] LABS: HEMOGLOBIN 8.3 gm/dL (14.0-18.0); MCH 28.4 pg (26.0-34.0); MCHC 33.3 g/dL (28.0-37.0); MCV 85.2 fL (80.0-100.0); MPV 6.6 fl. (7.2-11.1); NUCLEATED RBCS 0 /100WBC; PLATELET COUNT* 434 thou/uL (150-400); RBC 2.93 mil/uL (4.50-6.00); RDW-CV 14.8 % (10.5-14.5); WBC 7.6 thou/uL (4.0-11.0)
[2018-05-15 06:17] LABS: ALBUMIN 1.8 g/dL (3.4-5.0); CALCIUM 7.7 mg/dL (8.5-10.1); CREATININE 0.6 mg/dL (0.6-1.3); POTASSIUM 3.2 mmol/L (3.5-5.1); TOTAL BILIRUBIN 0.2 mg/dL (<0.1-1.0); TOTAL PROTEIN 4.7 g/dL (6.4-8.2)
[2018-05-15 06:40] LABS: PREALBUMIN 13.2 mg/dL (18.0-35.7)
[2018-05-15 06:52] LABS: ABSOLUTE LYMPHOCYTES 0.3 thou/uL (0.8-5.3); ABSOLUTE MONOCYTES 0.4 thou/uL (0.0-1.2); ABSOLUTE NEUTROPHILS 5.9 thou/uL (1.6-8.1); ANISOCYTOSIS 1+; LARGE PLATELETS RARE; PLATELET ESTIMATE INCREASED; POLYCHROMASIA Occasional; TOXIC GRANULATION Occasional
[2018-05-15 07:35] VITALS: BP 102/56
[2018-05-15 15:57] VITALS: BP 109/64
[2018-05-15 20:54] VITALS: BP 126/67
--- NOTE | 2018-05-16 06:43 | NUR ---
PATIENT SLEPT PART OF THE NIGHT. PATIENT CONTINUES TO HAVE FREQUENT WATERY STOOLS. PATIENT WAS GIVEN PAIN AND NAUSEA MEDS NEEDED. NG TUBE REMAINS CLAMPED. TPN AND FLUIDS CONTINUE TO INFUSE ORDERED. WILL CONTINUE TO MONITOR.
[2018-05-16 08:00] VITALS: BP 118/64
--- NOTE | 2018-05-16 10:27 | NUR ---
SW to continue to follow. Pt dc plan to dc home with sister support.
[2018-05-16 11:14] LABS: CALCIUM 7.8 mg/dL (8.5-10.1); CREATININE 0.7 mg/dL (0.6-1.3)
[2018-05-16 16:00] VITALS: BP 130/86
--- NOTE | 2018-05-16 16:47 | NUR ---
RESUMED CARE THIS AM. A/O, SEE ASSESSMENT FOR DETAILS. NG TUBE DISCONTINUED DURING TRANSFER BY PATIENT, ERICH MASHED POTATOES FOR LUNCH WELL, PAIN/NAUSEA MANAGED WELL WITH MEDICATION. CONT TO HAVE FREQUENT LOOSE STOOL, PROVIDES SELF CARE. TPN CONT TO INFUSE VIA RSC PORT WITHOUT DIFFICULTY, NO DISTRESS NOTED, PATIENT EAGER TO RECOUPERATE. CARE PLAN REVIEWED WITH PATIENT, DENIES QUESTIONS, VSS, CALL LIGHT IN REACH, VOICES NEEDS APPROP, CONT POC.
--- NOTE | 2018-05-16 17:48 | NUR ---
ASSUMED CARE OF PATIENT AT 1700. REPORT RECEIVED FROM KRYSTA MILLS. IVF INFUSING AND TPN ORDERED. LOOSE BM NOTED TO BSC. PATIENT REQUESTING PRN PAIN MEDICATION WHEN DUE.
[2018-05-17 01:05] VITALS: BP 93/56
[2018-05-17 06:51] LABS: ABSOLUTE BASOPHILS 0.1 thou/uL (0.0-0.2); ABSOLUTE EOSINOPHILS 0.9 thou/uL (0.0-0.7); ABSOLUTE LYMPHOCYTES 0.7 thou/uL (0.8-5.3); ABSOLUTE MONOCYTES 0.5 thou/uL (0.0-1.2); ABSOLUTE NEUTROPHILS 6.7 thou/uL (1.6-8.1); BASOPHILS 0.6 %; HEMATOCRIT 27.4 % (42.0-52.0); HEMOGLOBIN 9.2 gm/dL (14.0-18.0); LYMPHOCYTES 8.2 %; MCH 28.4 pg (26.0-34.0); MCHC 33.4 g/dL (28.0-37.0); MONOCYTES 5.9 %; MPV 6.5 fl. (7.2-11.1); NUCLEATED RBCS 0 /100WBC; PLATELET COUNT* 487 thou/uL (150-400); POLYS 75.3 %; RBC 3.22 mil/uL (4.50-6.00); RDW-CV 15.3 % (10.5-14.5); WBC 8.9 thou/uL (4.0-11.0)
--- NOTE | 2018-05-17 06:56 | NUR ---
PT SLEPT OFF AND ON. RECEIVING IV AND PO PAIN MED, NAUSEA MED. RPAC TPN INFUSING PER PUMP. RFA IVF INFUSING PER PUMP, ABX GIVEN. TOLERATING CLEAR LIQUIDS AND ORAL MEDS WITHOUT EMESIS OVERNIGHT, STATES MASHED POTATOES HE ATE FOR DINNER ARE STILL "TRYING TO MOVE THROUGH". UP TO BSC TO URINATE AND WATERY STOOLS OVERNIGHT. AM LABS DRAWN. PO VANC GIVEN ORDERED. REMAINS ON SP CONTACT ISOLATION FOR CDIFF. AICHA CDI TO R ABD. ABLE TO USE CALL LITE AND MAKE NEEDS KNOWN.
[2018-05-17 07:03] LABS: CALCIUM 7.9 mg/dL (8.5-10.1); CREATININE 0.6 mg/dL (0.6-1.3); MAGNESIUM 1.8 mg/dL (1.8-2.4); PHOSPHORUS* 3.3 mg/dL (2.5-4.9); POTASSIUM 3.7 mmol/L (3.5-5.1)
[2018-05-17 16:00] VITALS: BP 104/66
--- NOTE | 2018-05-17 19:54 | NUR ---
RESUMED CARE THIS AM. SEE ASSESSMENT FOR DETAILS. DISCOMFORT MANAGED WELL, UP TO COMMODE INDEP. CONT TO HAVE LIQUID STOOL, MORE CONTINENT TODAY. ERICH MECH SOFT DIET WHEN SERVED, REPORTS NAUSEA WITH PO INTAKE. TPN CONT TO INFUSE @ 55/HR VIA RSC PORT, NS CONT VIA 20G RFA.
[2018-05-18 00:15] VITALS: BP 92/52
[2018-05-18 06:23] LABS: ABSOLUTE EOSINOPHILS 0.8 thou/uL (0.0-0.7); ABSOLUTE LYMPHOCYTES 0.6 thou/uL (0.8-5.3); ABSOLUTE MONOCYTES 0.5 thou/uL (0.0-1.2); ABSOLUTE NEUTROPHILS 4.3 thou/uL (1.6-8.1); BASOPHILS 0.2 %; HEMATOCRIT 25.1 % (42.0-52.0); HEMOGLOBIN 8.3 gm/dL (14.0-18.0); LYMPHOCYTES 9.9 %; MCH 28.2 pg (26.0-34.0); MCHC 33.2 g/dL (28.0-37.0); MCV 85.1 fL (80.0-100.0); MONOCYTES 8.5 %; MPV 6.5 fl. (7.2-11.1); NUCLEATED RBCS 0 /100WBC; POLYS 68.4 %; RBC 2.95 mil/uL (4.50-6.00); RDW-CV 15.8 % (10.5-14.5); WBC 6.3 thou/uL (4.0-11.0)
[2018-05-18 06:24] LABS: PLATELET COUNT* 407 thou/uL (150-400)
[2018-05-18 06:59] LABS: ALBUMIN 2.1 g/dL (3.4-5.0); CALCIUM 7.6 mg/dL (8.5-10.1); CREATININE 0.6 mg/dL (0.6-1.3); POTASSIUM 3.7 mmol/L (3.5-5.1); TOTAL BILIRUBIN 0.2 mg/dL (<0.1-1.0); TOTAL PROTEIN 5.1 g/dL (6.4-8.2)
[2018-05-18 07:40] VITALS: BP 100/50
[2018-05-18 16:05] VITALS: BP 100/54
--- NOTE | 2018-05-18 19:45 | NUR ---
PATIENT RESTING IN BED. PATIENT IS UP AD SUZAN TO COMMODE. PATIENT CONTINUES TO HAVE A FEW PER HOUR GREEN LIQUID STOOLS. PATIENT HAS COMPLAINTS OF ABDOMINAL CRAMPING AND RECTAL PAIN. PATIENT HAS LIDOCAINE CREAM AND A&D OINTMENT FOR RECTAL PAIN. PATIENT HAS MORPHINE AND OXYCODONE WHICH PROVIDES ADEQUATE RELIEF. PATIENT HAS POOR APPETITE BUT IS TOLERATING SMALL AMOUNTS OF MEALS. PATIENT DENIES ANY FURTHER NEEDS AT THIS TIME. CALL LIGHT WITHIN REACH. WILL CONTINUE TO MONITOR.
[2018-05-18 23:53] VITALS: BP 100/62
--- NOTE | 2018-05-19 05:11 | NUR ---
PATIENT SLEPT WELL DURING THIS SHIFT. PT UP TO BSC FOR NUMEROUS LOOSE STOOLS. PT WITH FLUIDS INFUSING IN RT FOREARM AND TPN INFUSING THROUGH PORTACATH PER DR ORDER. ABLE TO DRAW/FLUSH PAC WITH NO RESISTANCE. PT WITH SCHEDULED PAIN MEDICATION BUT CALLS FOR PRN. PT REMAINS IN SPECIAL CONTACT. FREQUENTLY USED ITEMS AND CALL LIGHT WITHIN REACH. SIDERAILS UPX2. WILL CONTINUE TO MONITOR.
[2018-05-19 05:16] LABS: HEMATOCRIT 22.5 % (42.0-52.0); HEMOGLOBIN 7.6 gm/dL (14.0-18.0); MCH 28.8 pg (26.0-34.0); MCHC 33.7 g/dL (28.0-37.0); MCV 85.6 fL (80.0-100.0); MPV 6.7 fl. (7.2-11.1); NUCLEATED RBCS 0 /100WBC; PLATELET COUNT* 393 thou/uL (150-400); RBC 2.63 mil/uL (4.50-6.00); RDW-CV 15.7 % (10.5-14.5); WBC 4.8 thou/uL (4.0-11.0)
[2018-05-19 05:23] LABS: CALCIUM 7.5 mg/dL (8.5-10.1); CREATININE 0.5 mg/dL (0.6-1.3); POTASSIUM 4.3 mmol/L (3.5-5.1)
[2018-05-19 06:24] LABS: ABSOLUTE BASOPHILS 0.1 thou/uL (0.0-0.2); ABSOLUTE EOSINOPHILS 0.4 thou/uL (0.0-0.7); ABSOLUTE LYMPHOCYTES 0.4 thou/uL (0.8-5.3); ABSOLUTE MONOCYTES 0.3 thou/uL (0.0-1.2); ABSOLUTE NEUTROPHILS 3.5 thou/uL (1.6-8.1); PLATELET ESTIMATE ADEQUATE
[2018-05-19 08:10] VITALS: BP 95/59
[2018-05-19 15:53] VITALS: BP 106/54
--- NOTE | 2018-05-19 17:46 | NUR ---
RECIEVED CARE AT 1530. PATIENT A&OX4, ROOM AIR, IV RIGHT FOREARM FLUIDS INFUSSING, RIGHT PORICATH TPN INFUSSING. C/O ABD PAIN, RECTAL PAIN, MINIMAL TO PARTIAL RELEIF WITH MEDICATION. CREAM APPLIED TO BOTTOM. HAVING FREQUENT LIQUID GREEN STOOLS. C/O NAUSEA/NO VOMITING, MEDICATION GIVEN. CONCERNS WITH FEQUENCY OF STOOLS, RECOLLECTING C-DIFF TOMORROW AND RE-EVALUATING ABX TX FOR C-DIFF. NO OTHER CONCERNS AT THIS TIME. APPROPRIATE AND COOPORATIVE WITH CARE.
[2018-05-19 20:30] VITALS: BP 111/60
--- NOTE | 2018-05-20 05:16 | NUR ---
PT SLEPT AT INTERVALS DURING THE NIGHT, MULTIPLE LIQUID STOOLS, IV TPN AND FLUIDS RUNNING, FREQUENT PRN PAIN/NAUSEA/ANXIETY MEDS, PT PLEASANT, CREAM TO RECTUM SORENESS PER REQUEST, CALL LIGHT IN REACH, WILL CONTINUE TO MONITOR
[2018-05-20 05:33] LABS: HEMATOCRIT 20.2 % (42.0-52.0); MCHC 33.7 g/dL (28.0-37.0); MCV 86.1 fL (80.0-100.0); NUCLEATED RBCS 0 /100WBC; PLATELET COUNT* 374 thou/uL (150-400); RBC 2.35 mil/uL (4.50-6.00); RDW-CV 15.9 % (10.5-14.5); WBC 3.9 thou/uL (4.0-11.0)
[2018-05-20 06:01] LABS: CALCIUM 6.2 mg/dL (8.5-10.1); CREATININE 0.4 mg/dL (0.6-1.3); POTASSIUM 3.7 mmol/L (3.5-5.1)
[2018-05-20 06:09] LABS: HEMOGLOBIN 6.8 gm/dL (14.0-18.0)
[2018-05-20 07:09] LABS: ABSOLUTE EOSINOPHILS 0.5 thou/uL (0.0-0.7); ABSOLUTE LYMPHOCYTES 0.5 thou/uL (0.8-5.3); ABSOLUTE MONOCYTES 0.1 thou/uL (0.0-1.2); ABSOLUTE NEUTROPHILS 2.7 thou/uL (1.6-8.1); PLATELET ESTIMATE ADEQUATE
[2018-05-20 07:15] VITALS: BP 109/62
[2018-05-20 07:19] LABS: ANISOCYTOSIS 1+; HYPOCHROMASIA Occasional; POIKILOCYTOSIS 1+
[2018-05-20 08:10] VITALS: BP 96/53
[2018-05-20 13:48] VITALS: BP 101/60; BP 104/58; BP 106/60; BP 116/70; BP 95/58
--- NOTE | 2018-05-20 17:23 | NUR ---
PATIENT RESTING IN BED. PATIENT IS UP AD SUZAN IN ROOM. PATIENT HAS POOR APPETITE AND HAS HAD NAUSEA, NO VOMITING. PATIENT HAS CONTINUED FREQUENT LIQUID BOWEL MOVEMENTS. PATIENT RECEIVED ONE UNIT BLOOD WITHOUT INCIDENT. PATIENT HAS HAD COMPLAINTS OF ABDOMINAL CRAMPING WITH PAIN RATING UP TO 10/10, WITH ADEQUATE RELIEF PROVIDED BY MEDICATION. PATIENT DENIES ANY NEEDS AT THIS TIME. CALL LIGHT WITHIN REACH. WILL CONTINUE TO MONITOR.
[2018-05-20 20:15] VITALS: BP 116/62
--- NOTE | 2018-05-21 05:15 | NUR ---
PT SLEPT AT INTERVALS DURING THE NIGHT, FREQUENT LIQUID BM'S, PAIN/NAUSEA/ANXIETY MEDS, UP TO THE BSC, BRIEFS CHANGED FREQUENTLY, IV FLUIDS AND TPN INFUSING, CALL LIGHT IN REACH, WILL CONTINUE TO MONITOR
[2018-05-21 05:51] LABS: ABSOLUTE EOSINOPHILS 0.4 thou/uL (0.0-0.7); ABSOLUTE LYMPHOCYTES 0.6 thou/uL (0.8-5.3); ABSOLUTE MONOCYTES 0.5 thou/uL (0.0-1.2); ABSOLUTE NEUTROPHILS 3.8 thou/uL (1.6-8.1); BASOPHILS 0.9 %; EOSINOPHILS 6.7 %; HEMATOCRIT 26.9 % (42.0-52.0); LYMPHOCYTES 11.1 %; MCH 28.8 pg (26.0-34.0); MCHC 33.4 g/dL (28.0-37.0); MCV 86.1 fL (80.0-100.0); MONOCYTES 8.9 %; MPV 6.7 fl. (7.2-11.1); NUCLEATED RBCS 0 /100WBC; PLATELET COUNT* 378 thou/uL (150-400); POLYS 72.4 %; RBC 3.12 mil/uL (4.50-6.00); RDW-CV 15.7 % (10.5-14.5); WBC 5.2 thou/uL (4.0-11.0)
[2018-05-21 06:03] LABS: ALBUMIN 2.1 g/dL (3.4-5.0); CALCIUM 7.6 mg/dL (8.5-10.1); CREATININE 0.6 mg/dL (0.6-1.3); POTASSIUM 4.3 mmol/L (3.5-5.1); TOTAL BILIRUBIN 0.2 mg/dL (<0.1-1.0)
--- NOTE | 2018-05-21 15:53 | NUR ---
RESUMED CARE THIS AM. SEE ASSESSMENT FOR DETAILS. ERICH IVF AND TPN, ERICH MEDS, CARES, CONT TO HAVE LIQUID STOOL IN COPIOUS AMT @ BSC. ERICH PO FOOD WITH SLOW BITES, PAIN AND NAUSEA MANAGED WELL WITH MEDICATION ORDERED. CARE PLAN REVIEWED, NO QUESTIONS AT THIS TIME, CONT POC.
[2018-05-21 17:01] VITALS: BP 117/66
[2018-05-21 20:40] VITALS: BP 127/64
[2018-05-22 04:59] LABS: ABSOLUTE EOSINOPHILS 0.4 thou/uL (0.0-0.7); ABSOLUTE LYMPHOCYTES 0.6 thou/uL (0.8-5.3); ABSOLUTE MONOCYTES 0.4 thou/uL (0.0-1.2); ABSOLUTE NEUTROPHILS 3.8 thou/uL (1.6-8.1); BASOPHILS 0.6 %; HEMATOCRIT 26.4 % (42.0-52.0); HEMOGLOBIN 8.8 gm/dL (14.0-18.0); MCH 28.7 pg (26.0-34.0); MCHC 33.2 g/dL (28.0-37.0); MCV 86.3 fL (80.0-100.0); MPV 6.8 fl. (7.2-11.1); NUCLEATED RBCS 0 /100WBC; PLATELET COUNT* 370 thou/uL (150-400); POLYS 74.4 %; RBC 3.06 mil/uL (4.50-6.00); RDW-CV 16.3 % (10.5-14.5); WBC 5.1 thou/uL (4.0-11.0)
[2018-05-22 05:23] LABS: ALBUMIN 2.1 g/dL (3.4-5.0); CALCIUM 7.6 mg/dL (8.5-10.1); CREATININE 0.6 mg/dL (0.6-1.3); POTASSIUM 4.1 mmol/L (3.5-5.1); TOTAL BILIRUBIN 0.2 mg/dL (<0.1-1.0); TOTAL PROTEIN 4.8 g/dL (6.4-8.2)
--- NOTE | 2018-05-22 05:23 | NUR ---
PT SLEPT AT SMALL INTERVALS TONIGHT, IV FLUIDS AND TPN INFUSED, PRN PAIN/NAUSEA AND ANXIETY MEDS GIVEN PER REQUEST, UP TO BSC BY SELF, FREQUENT CHANGING OF BRIEFS, MULTIPLE LIQUID STOOLS, NO BLOOD IN STOOLS TONIGHT, CALL LIGHT IN REACH, WILL CONTINUE TO MONITOR
[2018-05-22 05:41] LABS: MAGNESIUM 1.5 mg/dL (1.8-2.4); PHOSPHORUS* 3.3 mg/dL (2.5-4.9)
[2018-05-22 08:00] VITALS: BP 123/69
[2018-05-22 11:12] LABS: URINE BILIRUBIN NEGATIVE (Negative); URINE BLOOD NEGATIVE (Negative); URINE CLARITY CLEAR; URINE COLOR YELLOW; URINE GLUCOSE-RANDOM NEGATIVE (Negative); URINE KETONES NEGATIVE (Negative); URINE LEUKOCYTES-REFLEX NEGATIVE (Negative); URINE NITRITE-REFLEX NEGATIVE (Negative); URINE PROTEIN NEGATIVE (Negative); URINE SPECIFIC GRAVITY <= 1.005 (1.005-1.030); URINE UROBILINOGEN 0.2 E.U./dl (0.2-1.0)
--- NOTE | 2018-05-22 18:55 | NUR ---
RESUMED CARE THIS AM, CONT W/ FREQUENT LIQUID STOOL, REQUESTING PAIN MEDICATION SOON ORDERS WILL ALLOW, THOUGH OCCASIONALLY SLEEPING BETWEEN ADMINISTRATION, CALL LIGHT IN REACH, CONT POC.
--- NOTE | 2018-05-23 01:08 | NUR ---
PT ALERT ORIENTED. UP TO BSC INDEPENDENTLY. FREQUENT LIQUID STOOLS. CDIFF ISOLATION. PAIN MEDICATION GIVEN Q 3 HRS FOR ABD PAIN. PT JUST REQUESTED A PRN ATIVAN. TPN INFUSING IN R CHEST PORT. IVF IN RFA. WILL CONTINUE TO MONITOR.
[2018-05-23 04:28] LABS: ABSOLUTE EOSINOPHILS 0.4 thou/uL (0.0-0.7); ABSOLUTE LYMPHOCYTES 0.6 thou/uL (0.8-5.3); ABSOLUTE MONOCYTES 0.4 thou/uL (0.0-1.2); ABSOLUTE NEUTROPHILS 3.9 thou/uL (1.6-8.1); BASOPHILS 0.9 %; EOSINOPHILS 7.2 %; LYMPHOCYTES 11.9 %; MCH 28.7 pg (26.0-34.0); MCHC 33.3 g/dL (28.0-37.0); MCV 86.2 fL (80.0-100.0); MONOCYTES 6.6 %; MPV 6.6 fl. (7.2-11.1); NUCLEATED RBCS 0 /100WBC; PLATELET COUNT* 401 thou/uL (150-400); POLYS 73.4 %; RBC 3.13 mil/uL (4.50-6.00); RDW-CV 16.2 % (10.5-14.5); WBC 5.3 thou/uL (4.0-11.0)
[2018-05-23 04:54] LABS: CALCIUM 7.7 mg/dL (8.5-10.1); CREATININE 0.5 mg/dL (0.6-1.3); MAGNESIUM 1.8 mg/dL (1.8-2.4); PHOSPHORUS* 3.6 mg/dL (2.5-4.9); POTASSIUM 4.5 mmol/L (3.5-5.1)
[2018-05-23 08:00] VITALS: BP 128/64
--- NOTE | 2018-05-23 13:04 | NUR ---
SW followed up with pt to discuss safe dc planning. Pt expressed that he was very upset at the thought of going home soon when pt felt that his issues were not resolved. Pt explained that he was led to believe that Dr Alvarez would work with pt to determine a plan where pt can be able to live at home and be able to take care of himself, control his bowels, etc. Pt said that he would give up if he couldn't take care of himself bc he did not want to "burden family". SW provided emotional support and encouragement and explained SW would provide any needed resources and would follow to assist with safe dc planning.
--- NOTE | 2018-05-23 16:44 | NUR ---
PATIENT HYPERFOCUSED ON NARCOTIC MEDICATION REGIMEN, OXYCODONE AND IV MORPHINE OFFSET DUE TO NOT BEING AVAILABLE VIA PHARMACY, ANTICIPATE DOSE REDUCTION TOMORROW. CONT TO C/O UNRELENTING ABD PAIN, CONT TO HAVE MULTIPLE LIQUID STOOLS, EATS ONLY BITES OF MEALS, CARE PLAN REVIEWED, DENIES QUESTIONS AT THIS TIME, CONT POC.
[2018-05-23 16:49] VITALS: BP 112/62
[2018-05-23 19:50] VITALS: BP 126/75
--- NOTE | 2018-05-24 05:54 | NUR ---
A&O X4 CALM COOPERITVE. IVF. RA. PAIN MAINAGMENT. ADLIB IN ROOM. VITAL WNL. SEE MAR. SEE CHARTING. HOURLY ROUNDING FOR SAFETY.
[2018-05-24 08:00] VITALS: BP 109/62
[2018-05-24 15:24] VITALS: BP 108/61
--- NOTE | 2018-05-24 18:16 | NUR ---
CONTINUES TO HAVE MULTIPLE LOOSE/WATERY STOOLS DURING SHIFT. PATIENT REQUESTING AND REMINDING NURSING WHEN PAIN MEDICATION IS DUE - REQUESTING PO AND IV PAIN MEDS Q 3 HOURS FOR COMPLAINTS OF ABD DISCOMFORT. GIVEN PO ZOFRAN X 1 DURING SHIFT FOR COMPLAINTS OF NAUSEA. TOLERATING LIQUIDS, MIN DIETARY INTAKE OF SOLIDS. PATIENT REFUSING TO LET NURSING ASSIST WITH MILAN CARE, OR APPLY BARRIER CREAM/INDEPENDENT. IV FLUIDS AND TPN INFUSING. CALL LIGHT WITHIN REACH, WILL CONTINUE WITH PLAN OF CARE.
[2018-05-25 01:02] VITALS: BP 102/64
[2018-05-25 08:00] VITALS: BP 104/62
[2018-05-25 15:51] VITALS: BP 106/59
--- NOTE | 2018-05-25 18:48 | NUR ---
RESUMED CARE THIS AM, CONT TO BE HYPERFIXATED WITH NARCOTIC PAIN ADMINISTRATION TIMES, CONT ON TPN @ 55/HR VIA RSC PORT. VSS, CALL LIGHT IN REACH, CONT POC.
[2018-05-25 23:48] VITALS: BP 99/57
--- NOTE | 2018-05-26 05:28 | NUR ---
PATIENT SLEPT PART OF THE NIGHT. IV FLUIDS AND TPN CONTINUE TO INFUSE ORDERED. PATIENT WAS GIVEN IV AND PO PAIN MEDS ABOUT EVERY THREE TO 4 HOURS. PATIENT CONTINUES TO HAVE MULITPLE STOOLS. WILL CONTINUE TO MONITOR.
[2018-05-26 07:37] LABS: HEMOGLOBIN 9.1 gm/dL (14.0-18.0); MCH 28.7 pg (26.0-34.0); MCHC 33.6 g/dL (28.0-37.0); MCV 85.7 fL (80.0-100.0); MPV 6.7 fl. (7.2-11.1); NUCLEATED RBCS 0 /100WBC; PLATELET COUNT* 378 thou/uL (150-400); RBC 3.15 mil/uL (4.50-6.00); RDW-CV 15.9 % (10.5-14.5)
[2018-05-26 07:51] LABS: ALBUMIN 2.3 g/dL (3.4-5.0); CREATININE 0.5 mg/dL (0.6-1.3); POTASSIUM 4.8 mmol/L (3.5-5.1); TOTAL BILIRUBIN 0.2 mg/dL (<0.1-1.0); TOTAL PROTEIN 5.3 g/dL (6.4-8.2)
[2018-05-26 08:00] VITALS: BP 108/62
[2018-05-26 08:07] LABS: ABSOLUTE EOSINOPHILS 0.2 thou/uL (0.0-0.7); ABSOLUTE LYMPHOCYTES 0.6 thou/uL (0.8-5.3); ABSOLUTE MONOCYTES 0.3 thou/uL (0.0-1.2); ABSOLUTE NEUTROPHILS 4.9 thou/uL (1.6-8.1)
[2018-05-26 08:08] LABS: ANISOCYTOSIS 1+; OVALOCYTES Occasional; PLATELET ESTIMATE ADEQUATE; POIKILOCYTOSIS 1+
[2018-05-26 15:50] VITALS: BP 116/56
--- NOTE | 2018-05-26 16:28 | NUR ---
SW continuing to follow. Considering whether or not dc possibilities could include LTAC or LTC facility, pt may not meet criteria or be accepted to LTAC with Medicaid, pt goal is to be able to return home at dc. SW will provide options for LTC placement if recommended or needed.
--- NOTE | 2018-05-26 18:57 | NUR ---
CONT TO REQUEST MEDS SOON POSSIBLY ADMINISTERED, REPORTS THICKENING OF STOOL, DECREASE IN FREQUENCY. CONT TPN, BATHED, PATIENT REPORTS "PUSHING THROUGH" DISCOMFORT AND ATTEMPTING TO EAT FULL MEALS, ERICH MORPHINE WEANING WELL, CALL LIGHT IN REACH, CONT POC.
[2018-05-26 20:30] VITALS: BP 116/62
--- NOTE | 2018-05-27 05:04 | NUR ---
PATIENT HAS REMAINED ALERT AND ORIENTED X 4 THROUGHOUT THE SHIFT. RESTING AT INTERVALS ON HOURLY ROUNDS. STATED BLOATING AND ABDOMINAL PAIN PAIN CONCERNS THIS SHIFT. BLOATING INPROVED AFTER BOWELS MOVEMENTS X 2 IN LARGE AMOUNTS. STOOL OVERNIGHT LOOSE AND WATERY. LARGE AMOUNT VOIDED URINE. MEDICATED WITH SCHEDULED PAIN MEDICATION AT HS. PRN ORAL MEDS REQUESTED AND PROVIDED Q3H. IV PAIN MEDICATION PROVIDED AT REQUEST X 2 OF THIS WRITING. UP INDEPENDENTLY TO BSC AND PERFORMING OWN HYGIENE. STATED MILAN-RECTUM REMAINS TENDER. OINTMENT APPLIED BY PATIENT WITH TOILETING. IVF'S AND TPN PER ORDERS. NEWLY HEALED OSTOMY TAKEDOWN SITE DRY AND OPEN TO AIR. PATIENT STATES TO HIS TOUCH HE BELIEVES THERE IS PART OF A STITCH STILL PRESENT. WILL UPDATE SURGERY THIS AM. VITAL SIGNS STABLE. CONTINUE TO MONITOR.
[2018-05-27 07:57] VITALS: BP 100/60
--- NOTE | 2018-05-27 09:18 | NUR ---
ASSUMED CARE OF PT THIS AM AROUND 0715- UPON ASSESSMENT PT NOTED TO BE RESTING IN BED, WATCHING TV- PT A&O X4- CONTINENT OF BOWEL AND BLADDER-ASSIST X1 WITH TRANSFERS FOR SAFETY- LCTA, RESP EVEN AND UN-LABORED- VSS, O2 SAT 96% ON RA- ABDOMEN FIRM/ROUND/DISTENDED, PT REPORTS TO PASSING GAS- 2 LARGE BM'S REPORTED ON PRIOR SHIFT- POOR PO INTAKE NOTED WITH BREAKFAST THIS AM- IV TO RIGHT FA INTACT WITH IVF INFUSSING PRESCIBED- RIGHT UPPER AUXILLARY PORT/CATH NOTED INTACT, TPN INFUSSING PRESCIBED- RIGHT MID/ABD INCISSION HALL MONITOR, NO S/S INFECTION NOTED TO BE HEALING WELL- VIJAY RESIDENT IN TO ASSESS PT THIS AM, REPORTED TO HAVE DISSCUSSED WITH PT CUTTING BACK ON MILK/DAILRY PRODUCTS THIS SHIFT TO SEE IF IMPROVEMENT IN SYMPTOMS; PT AGREES TO COMPLY- PT REPORTS PAIN TO ABD/BOTTOM 7/10 THIS AM, SCHEDULED OXY GIVEN PRESCIBED- CALL LIGHT AND PERSONAL BELONGINGS WITH IN REACH- HOURLY ROUNDS IN PLACE R/T SAFETY/NEEDS- ALL NEEDS MET AT THIS TIME-WCTM
[2018-05-27 15:30] VITALS: BP 102/51
--- NOTE | 2018-05-27 16:25 | NUR ---
PT CURRENTLY RESTING IN BED, WATCHING TV-IV TO RIGHT FA INTACT, IVF INFUSING PRESCIBED- RIGHT ARM/AUX PICC INTACT, TPN INFUSSING PRESCIBED- CALLORIE COUNTING IN PLACE AND TO CONTINUE THROUGHOUT WEEK TO EVAL NEED FOR CONTINUED TPN- POOR PO INTAKE CONTINUES WITH MEASL THIS SHIFT- PRN PAIN MEDICATIONS REQUESTED R/T ORDERS AND INSTRUCTIONS-PT NOTED TO HAVE HARD TIME AT TIMES UNDERSTANDING NEED TO CUT BACK ON PAIN MEDICATIONS AND WEAN OF IV PRESCIBER DISCUSSED WITH HIM MULTIPLE TIMES- PT ON ONE ENCOUNTER NOTED TO CHRISTA UNDERSTANDING OF NEED TO CUT BACK AND IN ANOTHER, ANGRY AND ARGUMENATIVE- CONTINUED EDUCATION GIVEN- VANC NOTED TO BE CHANGED FROM Q 6 TO BID THIS SHIFT- PT REPORTS TO HAVE HAD AROUND 6 BM'S THIS SHIFT- CALL LIGHT AND PERSONAL BELONGINGS WITH IN REACH- HOURLY ROUNDS IN PLACE R/T SAFETY/NEEDS- ALL NEEDS MET AT THIS TIME-WCTM
[2018-05-27 20:00] VITALS: BP 95/62
--- NOTE | 2018-05-27 22:33 | NUR ---
RECEIVED REPORT AND ASSUMED CARE OF PATIENT AT 1930. ASSESSMENT AND VITALS COMPLETED CHARTED, VSS ON ROOM AIR. PATIENT A&OX4. PATIENT HAS C/O PAIN IN ABDOMEN, WELL BLOATING AND NAUSEA. MEDICATIONS ADMINISTERED PER MAR WITH PARTIAL RELIEF. PATIENT ENCOURAGED TO RELAX AND REPOSITION FOR COMFORT. PATIENT REMINDED OF GOAL TO WEAN OFF PAIN MEDICATIONS OVER THE WEEKEND. PATIENT VERBALIZES UNDERSTANDING AND VERY APPRECIATIVE OF EXPLAINING REGIMEN. GOAL IS EFFECTIVE RELIEF OF PAIN AND NAUSEA. CALL LIGHT WITHIN REACH
[2018-05-28 04:48] LABS: ABSOLUTE EOSINOPHILS 0.3 thou/uL (0.0-0.7); ABSOLUTE LYMPHOCYTES 0.5 thou/uL (0.8-5.3); ABSOLUTE MONOCYTES 0.3 thou/uL (0.0-1.2); ABSOLUTE NEUTROPHILS 3.8 thou/uL (1.6-8.1); BASOPHILS 0.7 %; EOSINOPHILS 5.8 %; HEMATOCRIT 26.7 % (42.0-52.0); LYMPHOCYTES 10.1 %; MCH 28.9 pg (26.0-34.0); MCHC 33.9 g/dL (28.0-37.0); MCV 85.2 fL (80.0-100.0); MONOCYTES 6.5 %; MPV 6.7 fl. (7.2-11.1); NUCLEATED RBCS 0 /100WBC; PLATELET COUNT* 363 thou/uL (150-400); POLYS 76.9 %; RBC 3.13 mil/uL (4.50-6.00); RDW-CV 15.9 % (10.5-14.5); WBC 4.9 thou/uL (4.0-11.0)
[2018-05-28 05:20] LABS: ALBUMIN 2.4 g/dL (3.4-5.0); CREATININE 0.6 mg/dL (0.6-1.3); POTASSIUM 4.4 mmol/L (3.5-5.1); TOTAL BILIRUBIN 0.2 mg/dL (<0.1-1.0)
--- NOTE | 2018-05-28 06:59 | NUR ---
VSS ON ROOM AIR. PATIENT PARTIALLY PROGRESSING TOWARDS GOALS: PAIN IN ABD PARTIALLY CONTROLLED WITH CURRENT REGIMEN. PATIENT ENCOURAGED TO CONTINUE REPOSITIONING FOR COMFORT AND REMINDED TO AVOID FOODS/DRINK THAT MAY UPSET STOMACH. PATIENT DID HAVE HALF A CUP OF CHICKEN BROTH AND A CUP OF SPRITE THROUGH THE NIGHT. PATIENT STATES HE THINKS THE IMMODIUM IS WORSENING HIS BLOATING. STOMACH IS NOTED TO BE FIRM. PATIENT CONTINUES TO HAVE MULTIPLE LOOSE STOOLS THROUGHOUT THE SHIFT. ISOLATION REMAINS IN PLACE FOR CDIFF. HOURLY ROUNDING OBSERVED. CALL LIGHT WITHIN REACH.
--- NOTE | 2018-05-28 07:21 | NUR ---
PATIENT CONSUMED 95 CALORIES OVERNIGHT - SPRITE AND HALF A CUP OF CHICKEN BROTH. PATIENT HAD AROUND 6 BOWEL MOVEMENTS - LIQUID AND YELLOW GREEN IN COLOR
[2018-05-28 08:00] VITALS: BP 104/54
[2018-05-28 16:00] VITALS: BP 130/68
--- NOTE | 2018-05-28 19:58 | NUR ---
PT ASSESSMENT CHARTED. VSS THROUGHOUT THE DAY. PT COMPLAINTS OF NAUSEA/BLOATING/PAIN CONSISTENT THROUGHOUT THE DAY. HE DID NOT HAVE VERY MUCH FOR INTAKE HE WAS NOT ABLE TO TOLERATE MUCH FROM EACH MEAL. 4 LIQUID BM'S TODAY PLUS PATIENT REPORTS THAT HE IS HAVING SOME STOOL LEAK OUT/INCONTINENCE. UP IN ROOM AD SUZAN WITHOUT DIFFICULTY.
[2018-05-28 20:40] VITALS: BP 126/66
--- NOTE | 2018-05-29 05:24 | NUR ---
UP INDEPENDENTLY TO BEDSIDE COMMODE. ALERT AND ORIENTED X4. USING PO AND IV PAIN MEDICATION TO HELP WITH ABDOMINAL PAIN. PASSED GAS X1. VOIDING WITHOUT DIFFICULTY. CONTINUES ON TPN AND IVF WITHOUT DIFFICULTY. DENIED NEED FOR NAUSEA MEDICATION THIS SHIFT. CALL LIGHT WITHIN REACH.
[2018-05-29 06:12] LABS: HEMATOCRIT 28.6 % (42.0-52.0); HEMOGLOBIN 9.5 gm/dL (14.0-18.0); MCH 28.5 pg (26.0-34.0); MCHC 33.3 g/dL (28.0-37.0); MCV 85.7 fL (80.0-100.0); MPV 6.6 fl. (7.2-11.1); RBC 3.34 mil/uL (4.50-6.00); RDW-CV 15.8 % (10.5-14.5); WBC 5.4 thou/uL (4.0-11.0)
[2018-05-29 06:23] LABS: CALCIUM 8.3 mg/dL (8.5-10.1); CREATININE 0.6 mg/dL (0.6-1.3); POTASSIUM 4.2 mmol/L (3.5-5.1)
[2018-05-29 08:00] VITALS: BP 124/64
--- NOTE | 2018-05-29 16:53 | NUR ---
PT UP TO BSC FREQUENTLY FOR LOOSE STOOLS. PT CONTINUES TO REPORT ABD PAIN. RECEIVING PO AND IV MEDS ORDERED. PT TOLERATING PO LIQUIDS WELL BUT NOT EATING MUCH FOOD IT GIVES HIM DIARRHEA. TPN INFUSING IN PORT A CATH.
[2018-05-29 17:00] VITALS: BP 98/53
[2018-05-29 23:58] VITALS: BP 108/65
--- NOTE | 2018-05-30 06:12 | NUR ---
ASSESSMENT COMPLETE. PT REPORTS "HORRIBLE CRAMPING AND BLOATING" ALL NIGHT. PT REPORTS "WORSE NIGHT HERE" PRN PAIN MEDICATION GIVEN NEEDED. ISOLATION FOR CDIFF. PT IS ON ROOM AIR WITH ANNA [place] SATS. PT HAS HAD DIARRHEA AND NAUSEA ALL NIGHT. REFUSING IMODIUM AND LAMOTID BECAUSE PATIENT STATES IT MAKES HIS BLOATING AND PAIN WORSE. PT HAS TPN INFUSING @ 80. RIGHT PAC. SEE ASSESSMENT AND VITALS FOR OTHER DETAILS. CALL LIGHT WITHIN REACH, WILL CONTINUE PLAN OF CARE
[2018-05-30 08:30] VITALS: BP 108/59
--- NOTE | 2018-05-30 16:19 | NUR ---
SW met with pt to discuss safe dc planning. Pt agreeable to SW trying to find placement and possible option for transfer or at least follow up with GI. SW faxed referral for fdc/LTC to [facility], [facility], [facility], [facility], [place] [facility], [facility], [facility], [facility], [facility], [facility], [facility]. SW called [facility] and attempted to discuss situation with GI clinic, no answer and hours M-Th 8 am to 4 pm. SW to continue to follow to assist with safe dc planning and pending placement.
[2018-05-30 17:37] VITALS: BP 104/64
--- NOTE | 2018-05-30 17:37 | NUR ---
PATIENT IS ALERT AND ORIENTED TODAY, COMPLAINS OF PAIN AT ALL TIMES EVEN WITH PAIN MEDICATION. IV PAIN MEDS DISCONTINUED TODAY. MAY PLAN FOR A DC OR TRANSFER TO ANOTHER HOSPITAL WITH A GI GROUP THAT PATIENT WILL SEE. VITAL SIGNS STABLE ON ROOM AIR. UP AD SUZAN IN ROOM TO BEDISDE COMMODE, FREQUENT STOOLS, APPETITE HAS BEEN OKAY TODAY. CALL LIGHT IS IN REACH, WILL CONTINUE TO MONITOR.
[2018-05-30 23:45] VITALS: BP 108/65
[2018-05-31 05:30] LABS: ABSOLUTE BASOPHILS 0.1 thou/uL (0.0-0.2); ABSOLUTE EOSINOPHILS 0.3 thou/uL (0.0-0.7); ABSOLUTE LYMPHOCYTES 0.5 thou/uL (0.8-5.3); ABSOLUTE MONOCYTES 0.3 thou/uL (0.0-1.2); ABSOLUTE NEUTROPHILS 3.5 thou/uL (1.6-8.1); BASOPHILS 1.3 %; EOSINOPHILS 6.7 %; LYMPHOCYTES 10.5 %; MCH 28.7 pg (26.0-34.0); MCHC 33.3 g/dL (28.0-37.0); MCV 86.4 fL (80.0-100.0); MONOCYTES 7.2 %; MPV 6.7 fl. (7.2-11.1); NUCLEATED RBCS 0 /100WBC; PLATELET COUNT* 316 thou/uL (150-400); POLYS 74.3 %; RBC 3.13 mil/uL (4.50-6.00); RDW-CV 15.4 % (10.5-14.5); WBC 4.7 thou/uL (4.0-11.0)
[2018-05-31 05:44] LABS: ALBUMIN 2.3 g/dL (3.4-5.0); CALCIUM 7.2 mg/dL (8.5-10.1); CREATININE 0.5 mg/dL (0.6-1.3); POTASSIUM 3.8 mmol/L (3.5-5.1); TOTAL BILIRUBIN 0.1 mg/dL (<0.1-1.0); TOTAL PROTEIN 5.1 g/dL (6.4-8.2)
--- NOTE | 2018-05-31 06:03 | NUR ---
ASSESSMENT COMPLETE. PT UP MOST OF THE NIGHT. PRN PAIN MEDS GIVEN NEEDED. PT REPORTS NAUSEA AND CRAMPING. PT HAD LESS STOOLS THROUGH THE NIGHT. TPN INFUSING AT 80. PT UP AD SUZAN TO BSC. SEE ASSESSMENT AND VITALS FOR OTHER DETAILS. CALL LIGHT WITHIN REACH, WILL CONTINUE PLAN OF CARE
[2018-05-31 08:15] VITALS: BP 105/64
[2018-05-31 11:19] VITALS: BP 105/64
--- NOTE | 2018-05-31 11:56 | NUR ---
MYLES discussed pt dc planning with Dr Gaytan as pt cleared for dc. MYLES called pt sister and left a message to update her on dc planning as well. MYLES received call from [facility] considering pt referral for LTC, as of now they said that they were unable to confirm pt Medicaid status. MYLES sent request for transfer and information to [facility] for possible transfer for GI services. SW to continue to follow to finalize and assist with safe dc planning.
--- NOTE | 2018-05-31 16:02 | NUR ---
PATIENT GIVEN 0XY IR AND ZOFRAN PO PRN FOR ABD PAIN AND NAUSEA. VOIDING PER BSC, LIQUID BM NOTED X 1. TPN TO DC AFTER CURRENT BAG INFUSED. PAC DRESSING CHANGED PER PROTOCOL. DR. HINTON SPOKE WITH PATIENT REGARDING DISCHARGE. DR. HINTON SPOKE WITH [facility] REGARDING TRANSFER, [facility] DENIED. SURGERY OK WITH PATIENT DISCHARGE. ABBY FROM CM WORKING ON PATIENT PLACEMENT.
[2018-05-31 16:17] VITALS: BP 121/68
[2018-06-01 01:02] VITALS: BP 103/64
--- NOTE | 2018-06-01 05:14 | NUR ---
ASSESSMENT COMPLETE. PT UP MOST OF THE NIGHT. PRN PAIN MEDICATION GIVEN NEEDED. VITALS STABLE. PT UP AD SUZAN TO BSC. PT HAD 3 SMALL LOOSE BOWEL MOVEMENTS THROUGH THE NIGHT. PT REPORTS GAS "GURGLING AROUD" IN STOMACH. PT HAS RIGHT PAC, FLUSHES AND DRAWS WITHOUT DIFFICULTY. SEE ASSESSMENT AND VITALS FOR OTHER DETAILS. CALL LIGHT WITHIN REACH. WILL CONTINUE PLAN OF CARE
[2018-06-01 15:49] VITALS: BP 122/63
--- NOTE | 2018-06-01 17:35 | NUR ---
PATIENT HAS BEEN ALERT AND ORIENTED TODAY, CALM AND COOPERATIVE. COMPLAINS OF PAIN ALL THE TIME EVEN WITH PAIN MEDICATION EVERY 3 HOURS, PATIENT ASK FOR THEM EVERY THREE ON HOURS ON SCHEDULE. VITAL SIGNS HAVE BEEN STABLE ON ROOM AIR. PATIENT IS UP AD SUZAN TO THE BEDSIDE COMMODE. CALL LIGHT IS IN REACH, WILL CONTINUE TO MONITOR.
[2018-06-01 21:48] VITALS: BP 104/58
--- NOTE | 2018-06-02 05:23 | NUR ---
PATIENT SLEPT WELL DURING THIS SHIFT. PT REQUESTED PAIN MEDICATION Q3H. PT WOULD RETURN TO SLEEP AFTER RECEIVING PAIN MEDICATION. PT REQUESTED ATIVAN AND ZOFRAN X1. [facility] [place] [facility] [place] [facility], WEARS BRIEFS AND CONTINUES TO HAVE SOFT STOOLS. PT REMAINS IN ISOLATION FOR CDIFF. FREQUENTLY USED ITEMS AND CALL LIGHT WITHIN REACH. SIDERAILS UPX2. WILL CONTINUE TO MONITOR.
[2018-06-02 08:59] VITALS: BP 113/62
--- NOTE | 2018-06-02 11:06 | NUR ---
MYLES received call from Kori at [facility] who explained that they did not have a male bed available but that [facility] should be able to accept pt to LTC. MYLES faxed updated referral information to [facility] and then called and spoke with Mary Ellen in the admissions. Mary Ellen said that they will review the referral further and then call to update SW on status of referral. MYLES discussed with Dr Gaytan and pt nurse Asaf. Pt to dc to LTC today if placement acceptance, otherwise, pt will dc home by tomorrow, Wednesday. SW to continue to follow to finalize safe dc planning.
[2018-06-02] MEDS ORDERED: FLORASTOR250 MG PO (14:31)
[2018-06-02] MEDS ORDERED: VANCOCIN 125 M125 M1 PO (14:34)
[2018-06-02] MEDS ORDERED: OXYCODONE HCL15 MG PO (14:35)
[2018-06-02 14:42] VITALS: BP 105/64
[2018-06-02 16:07] VITALS: BP 105/64
--- NOTE | 2018-06-02 16:10 | NUR ---
PATIENT IS ALERT AND ORIENTED TODAY, COMPLAINS OF PAIN ALL THE TIME, NO RELIEF PER PATIENT. PORT A CATH HEPARIN LOCKED AND DEACCESSED BY NURSING VALIDATION SPECIALIST. PATIENT IS BEING DISCHARGED TO A [facility]. CHART COPIED AND PRESCRIPTIONS SENT WITH TRANSPROTER. PROVIDER AND PATIENT DISCUSSED AT LENGTH PAIN MANAGEMENT AND THE IMPORTANCE OF FINDING A GI DOCOTR AND FOLLOWING UP AND COOPERATING WITH THE PLAN OF CARE. PATIENT LEFT VIA WHEELCHAIR WITH TRANSPORTER FROM [facility]. REPORT GIVEN TO PEEWEE AT FACILITY.
[2018-06-02 16:16] VITALS: BP 105/64
--- NOTE | 2018-07-27 16:08 | PATH ---
[address] [address] PATHOLOGY RPT PROCEDURE Name: VIGNESH CAGE Room: [address] IN M.R.#: [id number] Admission: 04/26/18 Date of : 60 Discharge: 06/02/18 Report #: [id number] Path Case #: [id number] [facility] Accession Number: [id number] . 01 Material submitted: . PART A: END OF ILEOSTOMY PART B: HERNIA SAC . 01 Clinical history: . S/P rectal cancer . 02 Diagnosis: A. End of ileostomy: - Segment of benign small intestine with mild chronic serositis and serosal and mural fibrosis. . B. Hernia sac: - Benign mesothelial-lined fibromembranous/fibrofatty tissue with mild acute and chronic inflammation and fibrosis. (CHRISSIE:; 05/09/18) QRQ/05/09/2018 . 02 Electronically signed: . Sekou Perez MD, Pathologist NPI- [id number] . 01 Gross description: . A. Received in formalin labeled "Vignesh Cage, end of ileostomy" is a 6.5 x 5.2 x 3.5 cm portion of pink-barlow mucosa and surrounding yellow-barlow lobulated fibroadipose tissue. The serosal surfaces are pink-barlow and slightly ragged. Upon sectioning, the mucosal surface is pink-barlow and grossly unremarkable. Tobacco Blender cross sections of the specimen are submitted in cassettes A1-A2. . B. Received in formalin labeled "Vignesh Cage, hernia sac" is a specimen consisting of two portions of pink-barlow membranous soft tissue which measure 2.8 x 2.5 x 0.8 cm and 4.2 x 1.2 x 0.5 cm. No gross abnormalities are identified. Tobacco Blender sections are submitted in cassette B1. [place] SYC/SY . 02 Pathologist provided ICD-10: K65.8, K46.9 . 02 CPT . 840735, [id number] Performed at: 01 [place] [address] PATHOLOGY RPT PROCEDURE Name: VIGNESH CAGE Room: [address] IN M.R.#: [id number] Admission: 04/26/18 Date of : 60 Discharge: 06/02/18 Report #: [id number] Path Case #: [id number] [address] [facility] [address], [place], [place] [id number] MD Jerry Carlson MD Phone: [phone] Performed at: 02 [facility] [address], [place], [place] [id number] MD Sekou Perez MD Phone: [phone]
== END 2018-06-02 16:05 | DRG 329 ==
LOC: M.ERS 10:34 → M.ORTHSURG 13:55 → M.3W 13:55 → M.TBA-ER 13:55 → M.ORTHSURG 14:21 → M.3W 05-13 08:46
PROVIDERS: Family Medicine; Internal Medicine; Physician Assistant; Surgery; ADMIT Internal Medicine
PROC: 0D7Q8ZZ Dilation of Anus, Via Natural or Artificial Opening Endoscopic (ICD-10-PCS; principal; 2018-05-14)
PROC: 0WQF4ZZ Repair Abdominal Wall, Percutaneous Endoscopic Approach (ICD-10-PCS; principal; 2018-05-14)
PROC: 0DBB0ZZ Excision of Ileum, Open Approach (ICD-10-PCS; principal; 2018-05-14)
PROC: 30233N1 Transfusion of Nonautologous Red Blood Cells into Peripheral Vein, Percutaneous Approach (ICD-10-PCS; 2018-05-20)
DX: C19 Malignant neoplasm of rectosigmoid junction (principal); N17.0 Acute kidney failure with tubular necrosis; E43 Unspecified severe protein-calorie malnutrition; G93.40 Encephalopathy, unspecified; A04.72 Enterocolitis due to Clostridium difficile, not specified as recurrent; E87.1 Hypo-osmolality and hyponatremia; K56.600 Partial intestinal obstruction, unspecified as to cause; Z68.1 Body mass index [BMI] 19.9 or less, adult; E86.0 Dehydration; R32 Unspecified urinary incontinence; E87.6 Hypokalemia; E87.8 Other disorders of electrolyte and fluid balance, not elsewhere classified; F41.9 Anxiety disorder, unspecified; D64.9 Anemia, unspecified; G89.29 Other chronic pain; F17.210 Nicotine dependence, cigarettes, uncomplicated; Z79.899 Other long term (current) drug therapy; Z92.3 Personal history of irradiation; Z88.1 Allergy status to other antibiotic agents; Z88.2 Allergy status to sulfonamides; Z88.8 Allergy status to other drugs, medicaments and biological substances

== ENCOUNTER 2018-06-30 22:32 | Inpatient (IN) | payer MEDICAID ==
[~2018-06-30] VITALS: Ht 182.9 cm; Wt 62.6 kg
[~2018-06-30 22:32] MED LIST changes: +COLESTID1 GM PO; +DICYCLOMINE HCL10 MG PO; +FLORASTOR250 MG PO; +LYRICA 75 MG CA75 MG PO; +RESTORIL30 MG PO; +SERTRALINE HCL50 MG PO; +VANCOCIN 125 M125 M1 PO; +XANAX1 MG PO
[2018-07-01] VITALS (17 sets, daily range): BP systolic 84–122; BP diastolic 47–71
[2018-07-01 01:30] LABS: CALCIUM 7.4 mg/dL (8.5-10.1); CREATININE 1.5 mg/dL (0.6-1.3); POTASSIUM 3.1 mmol/L (3.5-5.1)
[2018-07-01 05:51] LABS: URINE BILIRUBIN NEGATIVE (Negative); URINE BLOOD NEGATIVE (Negative); URINE CLARITY CLEAR; URINE COLOR YELLOW; URINE GLUCOSE-RANDOM NEGATIVE (Negative); URINE KETONES 1+ (Negative); URINE LEUKOCYTES-REFLEX NEGATIVE (Negative); URINE NITRITE-REFLEX NEGATIVE (Negative); URINE PROTEIN NEGATIVE (Negative); URINE SPECIFIC GRAVITY <= 1.005 (1.005-1.030); URINE UROBILINOGEN 0.2 E.U./dl (0.2-1.0)
[2018-07-01 05:54] LABS: HEMATOCRIT 32.2 % (42.0-52.0); HEMOGLOBIN 10.8 gm/dL (14.0-18.0); MCH 27.7 pg (26.0-34.0); MCHC 33.7 g/dL (28.0-37.0); MCV 82.2 fL (80.0-100.0); MPV 6.5 fl. (7.2-11.1); NUCLEATED RBCS 0 /100WBC; PLATELET COUNT* 168 thou/uL (150-400); RBC 3.92 mil/uL (4.50-6.00); RDW-CV 16.1 % (10.5-14.5); WBC 3.6 thou/uL (4.0-11.0)
[2018-07-01 06:10] LABS: ALBUMIN 2.9 g/dL (3.4-5.0); CALCIUM 8.1 mg/dL (8.5-10.1); CREATININE 1.4 mg/dL (0.6-1.3); POTASSIUM 3.4 mmol/L (3.5-5.1); TOTAL BILIRUBIN 0.5 mg/dL (<0.1-1.0); TOTAL PROTEIN 5.8 g/dL (6.4-8.2)
[2018-07-01 07:19] LABS: ABSOLUTE EOSINOPHILS 0.1 thou/uL (0.0-0.7); ABSOLUTE LYMPHOCYTES 0.3 thou/uL (0.8-5.3); ABSOLUTE MONOCYTES 0.2 thou/uL (0.0-1.2); METAMYELOCYTES 1 %; PLATELET ESTIMATE ADEQUATE
[2018-07-01 08:30] LABS: AMP/METHAMP Negative (Negative); BARBITURATES Negative (Negative); BENZODIAZEPINES POSITIVE (Negative); COCAINE Negative (Negative); METHADONE Negative (Negative); OPIATES POSITIVE (Negative); PCP Negative (Negative); THC POSITIVE (Negative)
[2018-07-01] MEDS ORDERED: MIRALAX17 GM PO ×2 (14:48→14:52)
[2018-07-01] MEDS ORDERED: REGLAN 10 MG TA10 MG PO (14:49)
[2018-07-01] MEDS ORDERED: PROTONIX40 M1 PO (14:52)
[2018-07-01] MEDS ORDERED: SENNA8.6 MG PO (14:58)
[2018-07-02 04:52] LABS: ABSOLUTE LYMPHOCYTES 0.2 thou/uL (0.8-5.3); ABSOLUTE MONOCYTES 0.2 thou/uL (0.0-1.2); ABSOLUTE NEUTROPHILS 4.4 thou/uL (1.6-8.1); BASOPHILS 0.5 %; EOSINOPHILS 0.1 %; HEMATOCRIT 34.4 % (42.0-52.0); HEMOGLOBIN 11.3 gm/dL (14.0-18.0); LYMPHOCYTES 4.8 %; MCH 27.3 pg (26.0-34.0); MCHC 32.8 g/dL (28.0-37.0); MCV 83.3 fL (80.0-100.0); MONOCYTES 4.6 %; NUCLEATED RBCS 0 /100WBC; PLATELET COUNT* 191 thou/uL (150-400); RBC 4.12 mil/uL (4.50-6.00); RDW-CV 16.3 % (10.5-14.5); WBC 4.9 thou/uL (4.0-11.0)
[2018-07-02 05:13] LABS: CALCIUM 8.2 mg/dL (8.5-10.1); CREATININE 0.8 mg/dL (0.6-1.3); MAGNESIUM 1.3 mg/dL (1.8-2.4); POTASSIUM 3.2 mmol/L (3.5-5.1)
[2018-07-02 08:00] VITALS: BP 106/50
[2018-07-02 21:01] LABS: CALCIUM 8.2 mg/dL (8.5-10.1); CREATININE 0.7 mg/dL (0.6-1.3); POTASSIUM 3.4 mmol/L (3.5-5.1)
[2018-07-03 00:12] VITALS: BP 117/67
[2018-07-03 05:10] LABS: HEMATOCRIT 31.3 % (42.0-52.0); HEMOGLOBIN 10.5 gm/dL (14.0-18.0); MCHC 33.6 g/dL (28.0-37.0); MCV 83.5 fL (80.0-100.0); MPV 6.7 fl. (7.2-11.1); RBC 3.74 mil/uL (4.50-6.00); RDW-CV 16.1 % (10.5-14.5); WBC 4.1 thou/uL (4.0-11.0)
[2018-07-03 05:28] LABS: CALCIUM 7.8 mg/dL (8.5-10.1); CREATININE 0.7 mg/dL (0.6-1.3); MAGNESIUM 1.3 mg/dL (1.8-2.4); PHOSPHORUS* 1.3 mg/dL (2.5-4.9); POTASSIUM 3.2 mmol/L (3.5-5.1)
[2018-07-03 08:00] VITALS: BP 112/70
[2018-07-03 17:10] VITALS: BP 125/74
[2018-07-04 05:32] LABS: HEMATOCRIT 32.8 % (42.0-52.0); HEMOGLOBIN 10.9 gm/dL (14.0-18.0); MCH 27.7 pg (26.0-34.0); MCHC 33.4 g/dL (28.0-37.0); MCV 82.9 fL (80.0-100.0); MPV 6.4 fl. (7.2-11.1); RBC 3.96 mil/uL (4.50-6.00); RDW-CV 16.6 % (10.5-14.5); WBC 4.2 thou/uL (4.0-11.0)
[2018-07-04 05:43] LABS: ALBUMIN 2.5 g/dL (3.4-5.0); CALCIUM 7.8 mg/dL (8.5-10.1); CREATININE 0.6 mg/dL (0.6-1.3); MAGNESIUM 1.7 mg/dL (1.8-2.4); PHOSPHORUS* 1.3 mg/dL (2.5-4.9); POTASSIUM 3.8 mmol/L (3.5-5.1); TOTAL BILIRUBIN 0.4 mg/dL (<0.1-1.0); TOTAL PROTEIN 5.4 g/dL (6.4-8.2)
[2018-07-04 08:00] VITALS: BP 125/74
[2018-07-04 16:00] VITALS: BP 105/72
[2018-07-04 21:00] VITALS: BP 103/81
[2018-07-05 08:15] VITALS: BP 125/80
[2018-07-05 12:32] LABS: URINE BILIRUBIN NEGATIVE (Negative); URINE BLOOD NEGATIVE (Negative); URINE CLARITY CLEAR; URINE COLOR YELLOW; URINE GLUCOSE-RANDOM NEGATIVE (Negative); URINE KETONES NEGATIVE (Negative); URINE LEUKOCYTES-REFLEX NEGATIVE (Negative); URINE NITRITE-REFLEX NEGATIVE (Negative); URINE PROTEIN NEGATIVE (Negative); URINE UROBILINOGEN 0.2 E.U./dl (0.2-1.0)
[2018-07-05 17:23] VITALS: BP 145/69
[2018-07-05 20:00] VITALS: BP 127/76
[2018-07-05 22:54] VITALS: BP 127/76
[2018-07-06 05:48] LABS: HEMOGLOBIN 9.7 gm/dL (14.0-18.0); MCH 27.8 pg (26.0-34.0); MCHC 33.4 g/dL (28.0-37.0); MCV 83.2 fL (80.0-100.0); MPV 6.7 fl. (7.2-11.1); RBC 3.49 mil/uL (4.50-6.00); RDW-CV 16.5 % (10.5-14.5); WBC 3.4 thou/uL (4.0-11.0)
[2018-07-06 06:21] LABS: ALBUMIN 2.3 g/dL (3.4-5.0); CALCIUM 7.4 mg/dL (8.5-10.1); CREATININE 0.6 mg/dL (0.6-1.3); MAGNESIUM 1.2 mg/dL (1.8-2.4); POTASSIUM 4.5 mmol/L (3.5-5.1); TOTAL BILIRUBIN 0.2 mg/dL (<0.1-1.0); TOTAL PROTEIN 4.6 g/dL (6.4-8.2)
[2018-07-06 08:00] VITALS: BP 132/70
--- NOTE | 2018-07-06 15:52 | CON ---
[address] [address] CONSULTATION Name: VIGNESH YODER Room: [address] IN .R.#: [id number] Admission: 07/01/18 Attend Phys: Ronan Walker MD Discharge: Date of : 60 Report #: [id number] THIS REPORT FOR: //name// CC: Ronan Mckay DATE OF SERVICE: 07/01/2018 REQUESTED BY: Dr. Walker. REASON FOR CONSULTATION: Acute kidney injury and hyponatremia. HISTORY OF PRESENT ILLNESS: The patient is a 58-year-old gentleman admitted with a possible small-bowel obstruction. He had previous admissions here with chronic pain and narcotic dependence. He was found to have a sodium of 119. He initially was at [facility], but requested to come here and was transferred to this facility and admitted to the ICU, started on half normal saline and had an NG placed. Currently, does not have any complaints. He is somnolent. PAST MEDICAL HISTORY: History of rectal adenocarcinoma, treated with radiation, which he completed in 02/2018, history of C. diff, history of GERD, chronic pain and history of pancreatitis. SOCIAL HISTORY: Positive for tobacco and marijuana. FAMILY HISTORY: Not pertinent in this 58-year-old gentleman. MEDICATIONS: Reviewed. REVIEW OF SYSTEMS: Constitutional, psych, heme, eyes, ENT, respiratory, cardiac, GI, , endocrine, all negative except as documented above. PHYSICAL EXAMINATION: VITAL SIGNS: Blood pressure is 104/57, pulse 58, respirations 10-12, temperature 36.4. GENERAL: In no acute distress. EYES: Closed. EARS: Externally normal. CARDIOVASCULAR: Regular rate. LUNGS: Diminished breath sounds. ABDOMEN: Soft. LYMPHATICS: No significant pitting edema. NEUROLOGIC: Opens eyes, but is fairly somnolent. LABORATORY DATA: White cell count 3.6, hemoglobin 10.8, platelets [place] [address] CONSULTATION Name: VIGNESH YODER Room: [address]#: [id number] Admission: 07/01/18 Attend Phys: Ronan Walker MD Discharge: Date of : 60 Report #: [id number] 119, potassium 3.4, chloride 83, bicarbonate 32, BUN 31, creatinine 1.4, glucose 74, calcium 8.1, albumin 2.9. ASSESSMENT AND PLAN: 1. Hyponatremia in the setting of volume depletion. His sodium has corrected about 9 points in the past 14 hours and is up to 128 now with half normal saline. On 06/27/2018, he had a sodium of 137. He was also on sertraline as an outpatient. 2. Acute kidney injury secondary to volume depletion with admission creatinine of 1.5. On 06/27/2018, creatinine was 0.5. UA is noted. PLAN: Given that the sodium is correcting relatively rapidly on half normal saline, we will change him to D5W at 75 mL an hour to complete a total of 500 mL infusion. We will repeat sodium at 2100 and again in the a.m. and leave parameters to contact us to ensure that the sodium does not continue to rapidly correct nor rapidly re-lower. He has good urine output and a kidney ultrasound is not likely to add anything clinically at this point. We will follow. Thank you for requesting my opinion in the care and management of this patient. <ELECTRONICALLY SIGNED> By: Nicholas Nguyen MD 07/06/18 1552 [id number] Nguyen MD /nt
[2018-07-06 19:01] VITALS: BP 102/72
[2018-07-06 23:43] VITALS: BP 135/77
[2018-07-07 08:00] VITALS: BP 100/65
[2018-07-07 16:34] VITALS: BP 111/68
[2018-07-08 00:06] VITALS: BP 104/63
[2018-07-08 07:45] VITALS: BP 103/58
[2018-07-08] MEDS ORDERED: RESTORIL15 MG PO (08:52)
[2018-07-08 11:15] VITALS: BP 103/58
== END 2018-07-08 12:30 | DRG 388 ==
LOC: M.ICU 22:32 → M.3W 07-01 18:41
PROVIDERS: Family Medicine; Internal Medicine; Internal Medicine Nephrology; Surgery; ADMIT Internal Medicine
DX: K56.600 Partial intestinal obstruction, unspecified as to cause (principal); E43 Unspecified severe protein-calorie malnutrition; E87.1 Hypo-osmolality and hyponatremia; N17.9 Acute kidney failure, unspecified; Z68.1 Body mass index [BMI] 19.9 or less, adult; F11.20 Opioid dependence, uncomplicated; K21.9 Gastro-esophageal reflux disease without esophagitis; F17.210 Nicotine dependence, cigarettes, uncomplicated; E87.6 Hypokalemia; E86.0 Dehydration; F12.90 Cannabis use, unspecified, uncomplicated; D69.6 Thrombocytopenia, unspecified; G89.29 Other chronic pain; Z92.21 Personal history of antineoplastic chemotherapy; Z85.048 Personal history of other malignant neoplasm of rectum, rectosigmoid junction, and anus; Z92.3 Personal history of irradiation; Z79.899 Other long term (current) drug therapy; Z88.1 Allergy status to other antibiotic agents; Z88.2 Allergy status to sulfonamides; Z88.8 Allergy status to other drugs, medicaments and biological substances